=== PATIENT | female | born 1950 | race American Indian/Alaskan Native ===

== ENCOUNTER 2018-09-15 08:07 | Emergency (ER) | payer MEDICARE ==
[2018-09-15 08:13] VITALS: BP 137/76
--- NOTE | 2018-09-15 09:01 | Emergency Department Report ---
ED Extremity Problem HPI - General Chief complaint: Extremity Injury, Lower Stated complaint: DIABETIC/L FOOT SWOLLEN Time Seen by Provider: 09/15/18 08:53 Source: patient Mode of arrival: Ambulatory Limitations: No Limitations - History of Present Illness Initial comments: Patient is a 68-year-old Female past medical history of diabetes who is complain ing of left foot and ankle swelling. Patient states for the past 2 weeks she is experiencing some swelling mostly at night. Patient states she works 3 days out of the week and on the days that she is working she's noticed that her left foot and ankle get some mild swelling was noted today. This resolves at night with rest. The patient states on her off today she is not experiencing swelling. Patient was concerned because she is a diabetic and wanted to make sure that there was no evidence of infection. Patient denies any pain or injury fevers or chills it's time. Severity scale (0 -10): 0 - Related Data Previous Rx's Medication Instructions Recorded Last Taken Type Metformin HCl [Glucophage] 500 mg PO BID #60 tablet 11/16/17 Unknown Rx Allergies Allergy/AdvReac Type Severity Reaction Status Date / Time No Known Allergies Allergy Verified 09/15/18 08:09 ED Review of Systems ROS: Stated complaint: DIABETIC/L FOOT SWOLLEN Other details as noted in HPI Comment: All other systems reviewed and negative ED Past Medical Hx - Past Medical History Hx Diabetes: Yes - Surgical History Past Surgical History?: No - Social History Smoking Status: Never Smoker Substance Use Type: None - Medications Home Medications: Home Medications Medication Instructions Recorded Confirmed Last Taken Type Metformin HCl [Glucophage] 500 mg PO BID #60 tablet 11/16/17 Unknown Rx ED Physical Exam - General Limitations: No Limitations General appearance: alert, in no apparent distress - Head Head exam: Present: atraumatic, normocephalic - Eye Eye exam: Present: normal appearance - ENT ENT exam: Present: mucous membranes moist - Neck Neck exam: Present: normal inspection - Respiratory Respiratory exam: Present: normal lung sounds bilaterally. Absent: respiratory distress, wheezes, rales, rhonchi - Cardiovascular Cardiovascular Exam: Present: regular rate, normal rhythm. Absent: systolic murmur, diastolic murmur, rubs, gallop - GI/Abdominal GI/Abdominal exam: Present: soft, normal bowel sounds - Extremities Exam Extremities exam: Present: normal inspection, other (patient has trace edema to the left ankle. There is no erythema or warmth.) - Back Exam Back exam: Present: normal inspection - Neurological Exam Neurological exam: Present: alert, oriented X3 - Psychiatric Psychiatric exam: Present: normal affect, normal mood - Skin Skin exam: Present: warm, dry, intact, normal color. Absent: rash ED Course Vital Signs 09/15/18 08:11 Temperature 98.1 F Pulse Rate 104 H Respiratory 18 Rate Blood Pressure 137/76 O2 Sat by Pulse 97 Oximetry ED Medical Decision Making - Medical Decision Making Patient given information regarding dependent edema. Patient be discharged home. Critical care attestation.: If time is entered above; I have spent that time in minutes in the direct care of this critically ill patient, excluding procedure time. ED Disposition Clinical Impression: Dependent edema Disposition: TO HOME OR SELFCARE Is pt being admited?: No Does the pt Need Aspirin: No Condition: Stable Instructions: Leg Edema (ED) Referrals: NATHALIE SHIN MD [Primary Care Provider] - 3-5 Days Time of Disposition: 09:01
== END 2018-09-15 09:15 | disposition home or self-care (01) ==
LOC: ED 08:07
DX: R60.9 Edema, unspecified (principal); E11.9 Type 2 diabetes mellitus without complications
CPT/HCPCS: 99282

== ENCOUNTER 2018-11-27 14:49 | Emergency (ER) | payer MEDICARE ==
--- NOTE | 2018-11-27 15:18 | Emergency Department Report ---
Blank Doc - Documentation Documentation: Pt states that this morning she began having vaginal spotting now having heavy vaginal bleeding, passing clots no abd pain no N/V no fever no urinary sx stopped having cycles in her 50s still has her uterus has not had a pelvic exam in 5 years no hx of fibroids PMHx DM non smoker rare ETOH no drug use
[2018-11-27 16:21] LABS: Basophils % (Auto) 0.4 % (0.0-1.8); Eosinophils % (Auto) 0.3 % (0.0-4.3); Hematocrit 38.2 % (30.3-42.9); Hemoglobin 12.5 gm/dl (10.1-14.3); Lymphocytes # (Auto) 1.2 K/mm3 (1.2-5.4); Lymphocytes % (Auto) 13.2 % (13.4-35.0); Mean Corpuscular HGB Conc 33 % (30-34); Mean Corpuscular Volume 75 fl (79-97); Monocytes # (Auto) 0.5 K/mm3 (0.0-0.8); Monocytes % (Auto) 5.6 % (0.0-7.3); Platelet Count 274 K/mm3 (140-440); Red Blood Count 5.13 M/mm3 (3.65-5.03); Red Cell Distribution Width 14.9 % (13.2-15.2)
[2018-11-27 16:30] LABS: INR 1.13 (0.87-1.13)
[2018-11-27 16:31] LABS: Partial Thromboplastin Time 28.7 Sec. (24.2-36.6)
[2018-11-27 16:34] LABS: BUN/Creatinine Ratio 22; Blood Urea Nitrogen 13 mg/dL (7-17); Hemolysis Index 2
--- NOTE | 2018-11-27 16:56 | Emergency Department Report ---
ED Female HPI - General Chief complaint: Vaginal Bleeding Stated complaint: VAGINAL BLEEDING Time Seen by Provider: 11/27/18 15:15 Source: patient Mode of arrival: Ambulatory Limitations: No Limitations - History of Present Illness Initial comments: This is a 68-year-old Afro[place] female who presents with vaginal bleeding. Patient status spotting started this morning. She also reports feeling some pressure with increased vaginal bleeding and clotting later. Patient states she has similar symptoms twice over the past 2 years and was seen by her primary care doctor. Patient reports bleeding and lasts for 1-2 days previously and her primary care doctor never referred her to a bus cleaner. Patient states she had not had a pelvic exam in the past 5-6 years. MD Complaint: vaginal bleeding -: This morning Radiation: non-radiating Severity: mild Severity scale (0 -10): 0 Consistency: intermittent Improves with: none Worsens with: none Are you Now?: No Associated Symptoms: vaginal bleeding. denies: vaginal discharge, abdominal pain, nausea/vomiting, fever/chills, headaches, loss of appetite, dysuria, hematuria, rash, seizure, shortness of breath, syncope, weakness - Related Data Sexually active: No Previous Rx's Medication Instructions Recorded Last Taken Type Metformin HCl [Glucophage] 500 mg PO BID #60 tablet 11/16/17 Unknown Rx Allergies Allergy/AdvReac Type Severity Reaction Status Date / Time No Known Allergies Allergy Verified 11/27/18 14:49 ED Review of Systems ROS: Stated complaint: VAGINAL BLEEDING Other details as noted in HPI Constitutional: denies: chills, fever Respiratory: denies: cough, shortness of breath, wheezing Cardiovascular: denies: chest pain, palpitations Gastrointestinal: denies: abdominal pain, nausea, diarrhea Genitourinary: other (postmenopausal bleeding). denies: urgency, dysuria, discharge, abnormal menses Skin: denies: rash, lesions Neurological: denies: headache, weakness, paresthesias Psychiatric: denies: anxiety, depression ED Past Medical Hx - Past Medical History Hx Diabetes: Yes - Surgical History Additional Surgical History: eye surgery - Social History Smoking Status: Never Smoker Substance Use Type: None - Medications Home Medications: Home Medications Medication Instructions Recorded Confirmed Last Taken Type Metformin HCl [Glucophage] 500 mg PO BID #60 tablet 11/16/17 Unknown Rx ED Physical Exam - General Limitations: No Limitations General appearance: alert, in no apparent distress - Respiratory Respiratory exam: Present: normal lung sounds bilaterally. Absent: respiratory distress - Cardiovascular Cardiovascular Exam: Present: regular rate, normal rhythm. Absent: systolic murmur, diastolic murmur, rubs, gallop - GI/Abdominal GI/Abdominal exam: Present: soft, normal bowel sounds. Absent: distended, tenderness, guarding, rebound, rigid - Back Exam Back exam: Absent: CVA tenderness (R), CVA tenderness (L) - Neurological Exam Neurological exam: Present: alert, oriented X3 - Psychiatric Psychiatric exam: Present: normal affect, normal mood - Skin Skin exam: Present: warm, dry, intact, normal color. Absent: rash ED Course Vital Signs 11/27/18 11/27/18 11/27/18 15:16 18:13 19:31 Temperature 97.7 F 98.0 F Pulse Rate 137 H 123 H 101 H Respiratory 18 22 18 Rate Blood Pressure 135/81 123/78 124/78 [Left] O2 Sat by Pulse 97 98 98 Oximetry ED Medical Decision Making - Lab Data Result diagrams: 11/27/18 15:58 11/27/18 15:58 Lab Results 11/27/18 11/27/18 11/27/18 Range/Units 15:58 15:58 15:58 WBC 9.2 (4.5-11.0) K/mm3 RBC 5.13 H (3.65-5.03) M/mm3 Hgb 12.5 (10.1-14.3) gm/dl Hct 38.2 (30.3-42.9) % MCV 75 L (79-97) fl MCH 24 L (28-32) pg MCHC 33 (30-34) % RDW 14.9 (13.2-15.2) % Plt Count 274 (140-440) K/mm3 Lymph % (Auto) 13.2 L (13.4-35.0) % [place] % (Auto) 5.6 (0.0-7.3) % Eos % (Auto) 0.3 (0.0-4.3) % Baso % (Auto) 0.4 (0.0-1.8) % Lymph # 1.2 (1.2-5.4) K/mm3 [place] # 0.5 (0.0-0.8) K/mm3 Eos # 0.0 (0.0-0.4) K/mm3 Baso # 0.0 (0.0-0.1) K/mm3 Seg Neutrophils % 80.5 H (40.0-70.0) % Seg Neutrophils # 7.4 (1.8-7.7) K/mm3 PT 15.2 H (12.2-14.9) Sec. INR 1.13 (0.87-1.13) APTT 28.7 (24.2-36.6) Sec. Sodium 135 L (137-145) mmol/L Potassium 3.9 (3.6-5.0) mmol/L Chloride 92.8 L (98-107) mmol/L Carbon Dioxide 28 (22-30) mmol/L Anion Gap 18 mmol/L BUN 13 (7-17) mg/dL Creatinine 0.6 L (0.7-1.2) mg/dL Estimated GFR > 60 ml/min BUN/Creatinine Ratio 22 % Glucose 221 H (65-100) mg/dL Calcium 9.0 (8.4-10.2) mg/dL - Radiology Data Radiology results: report reviewed PROCEDURE: US TRANSVAGINAL TECHNIQUE: Transabdominal and transvaginal grayscale and color-flow imaging of the pelvis was performed. HISTORY: postmenopausal vaginal bleeding COMPARISONS: None FINDINGS: Transabdominal: The uterus measures 12.1 cm x 7.2 cm x 10.3 cm in size. There is increased thickness of the endometrium (2.6 cm) with a heterogeneous appearance of the endometrium and the appearance of fluid in the endometrial cavity. There is an approximately 5.6 cm fibroid. The ovaries are not well visualized on the transabdominal study. No free fluid is demonstrated in the pelvis. Transvaginal: There is increased thickness of the endometrium (4.3 cm) which is heterogeneous and irregular in appearance. There is the appearance of fluid within the endometrial cavity. There is an approximately 6 cm anterior right uterine fibroid. The left ovary measures 2 cm x 2.2 cm x 0.9 cm and contains an approximately 0.9 cm cyst. The right ovary measures 2.2 cm x 2.4 cm x 2 cm and contains an approximately 2 cm cyst. Flow is demonstrated in both ovaries utilizing color flow imaging. A trace amount of free fluid is demonstrated in the pelvis. IMPRESSION: 1. Increased thickness of the endometrium which is heterogeneous in appearance with the appearance of fluid in the endometrial cavity. Endometrial malignancy needs to be considered. Referral to [facility] is recommended for further evaluation. 2. Uterine fibroid. 3. Small cyst both ovaries. 4. Small amount of free fluid in the pelvis. - Medical Decision Making Patient was examined by me. Vitals are normal and patient is in no acute distress. Postmenopausal vaginal bleeding. I obtained labs and pelvic and transvaginal ultrasound. There is some anemia with normal H&H, although the labs are unremarkable. Ultrasound dictated by radiologist report reviewed by myself. 1. Increased thickness of the endometrium which is heterogeneous in appearance with the appearance of fluid in the endometrial cavity. Endometrial malignancy needs to be considered. Referral to [facility] is recommended for further evaluation. 2. Uterine fibroid. 3. Small cyst both ovaries. 4. Small amount of free fluid in the pelvis. Referral to bus cleaner for continued care. Results discussed with patient and importance of follow-up with [facility] for further evaluation. Patient also given risk if she does not followup with [facility]. She agrees with ER plan. Patient discharged home in stable condition. Follow up with PCP in 2-3 days. - Differential Diagnosis Endometrial malignancy Critical care attestation.: If time is entered above; I have spent that time in minutes in the direct care of this critically ill patient, excluding procedure time. ED Disposition Clinical Impression: Post-menopausal bleeding Disposition: - TO HOME OR SELFCARE Is pt being admited?: No Does the pt Need Aspirin: No Condition: Stable Instructions: Dysfunctional Uterine Bleeding (ED) Additional Instructions: Follow-up with the bus cleaner from the referral list below within the next week. Return to the emergency room if worsening symptoms such as vaginal bleeding, pelvic pain,or lightheadedness. Referrals: [facility] [Provider Group] - 3-5 Days [facility] [Provider Group] - 3-5 Days [facility] [Provider Group] - 3-5 Days NATHALIE SHIN MD [Primary Care Provider] - 3-5 Days Forms: Accompanied Note Time of Disposition: 17:53
--- NOTE | 2018-11-27 17:19 | Ultrasound Report ---
PROCEDURE: US TRANSVAGINAL TECHNIQUE: Transabdominal and transvaginal grayscale and color-flow imaging of the pelvis was perfor med. HISTORY: postmenopausal vaginal bleeding COMPARISONS: None FINDINGS: Transabdominal: The uterus measures 12.1 cm x 7.2 cm x 10.3 cm in size. There is increased thickness of the endometrium (2.6 cm) with a heterogeneous appearance of the endom etrium and the appearance of fluid in the endometrial cavity. There is an approximately 5.6 cm fibroid. The ovaries are not well visualized on the transabdominal s tudy. No free fluid is demonstrated in the pelvis. Transvaginal: There is increased thickness of the endometrium (4.3 cm) which is heterogeneous and irregular in appe arance. There is the appearance of fluid within the endometrial cavity. There is an approximately 6 cm anterior right uterine fibroid. The left ovary measures 2 cm x 2.2 cm x 0.9 cm and contains an approximately 0.9 cm cyst. The right ovary measures 2.2 cm x 2.4 cm x 2 cm and contains an approximately 2 cm cyst. Flow is demonstrated in both ovaries utilizing color flow imaging. A trace amount of free fluid is demonstrated in the pelvis. IMPRESSION: 1. Increased thickness of the endometrium which is heterogeneous in appearance with the appearance of fluid in the endometrial cavity. Endometrial malignancy needs to be considered. Referral to [facility] is recommended for further evaluation. 2. Uterine fibroid. 3. Small cyst both ovaries. 4. Small amount of free fluid in the pelvis. This document is electronically signed by Prema Hines MD., Nov 27 2018 05:17:26 PM ET
--- NOTE | 2018-11-27 17:19 | Ultrasound Report ---
PROCEDURE: US PELVIC COMPLETE TECHNIQUE: Transabdominal and transvaginal grayscale and color-flow imaging of the pelvis was perfor med. HISTORY: postmenopausal vaginal bleeding COMPARISONS: None FINDINGS: Transabdominal: The uterus measures 12.1 cm x 7.2 cm x 10.3 cm in size. There is increased thickness of the endometrium (2.6 cm) with a heterogeneous appearance of the endom etrium and the appearance of fluid in the endometrial cavity. There is an approximately 5.6 cm fibroid. The ovaries are not well visualized on the transabdominal s tudy. No free fluid is demonstrated in the pelvis. Transvaginal: There is increased thickness of the endometrium (4.3 cm) which is heterogeneous and irregular in appe arance. There is the appearance of fluid within the endometrial cavity. There is an approximately 6 cm anterior right uterine fibroid. The left ovary measures 2 cm x 2.2 cm x 0.9 cm and contains an approximately 0.9 cm cyst. The right ovary measures 2.2 cm x 2.4 cm x 2 cm and contains an approximately 2 cm cyst. Flow is demonstrated in both ovaries utilizing color flow imaging. A trace amount of free fluid is demonstrated in the pelvis. IMPRESSION: 1. Increased thickness of the endometrium which is heterogeneous in appearance with the appearance of fluid in the endometrial cavity. Endometrial malignancy needs to be considered. Referral to [facility] is recommended for further evaluation. 2. Uterine fibroid. 3. Small cyst both ovaries. 4. Small amount of free fluid in the pelvis. This document is electronically signed by Prema Hines MD., Nov 27 2018 05:16:45 PM ET
[2018-11-27] MEDS ORDERED: NACL 0.9% 1000 ML 1,000 ML IV ONE (18:21)
[2018-11-27 19:32] VITALS: BP 124/78
== END 2018-11-27 19:32 | disposition home or self-care (01) ==
LOC: ED 14:49
DX: N95.0 Postmenopausal bleeding (principal); E11.9 Type 2 diabetes mellitus without complications
CPT/HCPCS: 36415; 76830; 76856; 80048; 85025; 85610; 85730; 99284; J7030

== ENCOUNTER 2019-01-09 18:23 | Inpatient (IN) | payer MEDICARE ==
--- NOTE | 2019-01-09 19:19 | Event Note ---
ED Screening Note Date of service: 01/09/19 Time: 19:15 ED Screening Note: This is a 68 y.o. F. that presents to the ER with RLE swelling. Patient reports swelling started 3 days. Reports SOB PMH of DM and DVT This initial assessment/diagnostic orders/clinical plan/treatment(s) is/are subject to change based on patients health status, clinical progression and re- assessment by fellow clinical providers in the ED. Further treatment and workup at subsequent clinical providers discretion. Patient/guardian urged not to elope from the ED as their condition may be serious if not clinically assessed and managed. Initial orders include: doppler
--- NOTE | 2019-01-09 22:34 | Emergency Department Report ---
ED Extremity Problem HPI - General Chief complaint: Extremity Problem,Nontraumatic Stated complaint: R LEG SWOLLEN Time Seen by Provider: 01/09/19 19:15 Source: patient Mode of arrival: Ambulatory Limitations: No Limitations - History of Present Illness Initial comments: 68-year-old female with a past medical history significant for non insulin dependent diabetes presents to the hospital complaining of progressively worsening right leg swelling 3 days. Patient denies pain, fever, or redness, or trauma. Patient stands on her feet all the work. She denies recent travel, history of PE/DVT, shortness of breath, or chest pain. Patient states she has had a fast heart beat at least since August identified during a physician office visit. Patient is currently being seen by Dr. Melendez ELECTRIC RANGE SERVICER and has an appointment scheduled on the with a new PMD. - Related Data Home Medications Medication Instructions Recorded Confirmed Last Taken metFORMIN [Glucophage] 1,000 mg PO BID 01/10/19 01/10/19 Unknown Allergies Allergy/AdvReac Type Severity Reaction Status Date / Time No Known Allergies Allergy Verified 11/27/18 14:49 ED Review of Systems ROS: Stated complaint: R LEG SWOLLEN Other details as noted in HPI Comment: All other systems reviewed and negative ED Past Medical Hx - Past Medical History Hx Diabetes: Yes - Surgical History Additional Surgical History: eye surgery - Social History Smoking Status: Never Smoker - Medications Home Medications: Home Medications Medication Instructions Recorded Confirmed Last Taken Type metFORMIN [Glucophage] 1,000 mg PO BID 01/10/19 01/10/19 Unknown History ED Physical Exam - General Limitations: No Limitations - Other Other exam information: General: No limitations, patient is alert in no acute distress Head exam: Atraumatic, normocephalic Eyes exam: Normal appearance ENT: Moist mucous membrane Neck exam: Normal inspection, full range of motion, no meningismus nontender Respiratory exam: Clear to auscultation bilateral, no wheezes, rales, crackles Cardiovascular: Mild tachycardia regular rhythm Abdomen: Soft, nondistended, and nontender, with normal bowel sounds, no rebound, or guarding Extremity: Full range of motion normal inspection no deformity, diffusely swollen right lower extremity below the knee down to the foot. Mild pitting, b ananas, 2+ DP pulses equal bilaterally, no warmth or erythema. Back: Normal Inspection, full range of motion, no tenderness Neurologic: Alert, oriented x3, cranial nerves intact, no motor or sensory d eficit Psychiatric: normal affect, normal mood Skin: Warm, dry, intact ED Course Vital Signs 01/09/19 01/09/19 01/09/19 19:16 22:01 22:03 Temperature 98.1 F Pulse Rate 127 H 116 H 114 H Respiratory 18 21 18 Rate Blood Pressure 120/76 110/74 O2 Sat by Pulse 98 93 Oximetry 01/09/19 01/09/19 01/09/19 22:15 22:30 22:38 Temperature Pulse Rate 114 H 114 H Respiratory 19 22 18 Rate Blood Pressure 102/58 96/64 O2 Sat by Pulse 98 97 95 Oximetry 01/09/19 01/09/19 01/09/19 22:42 22:45 23:15 Temperature Pulse Rate 115 H 114 H 114 H Respiratory 22 15 22 Rate Blood Pressure 96/64 104/68 104/72 O2 Sat by Pulse 95 92 Oximetry 01/09/19 01/09/19 01/09/19 23:19 23:30 23:45 Temperature Pulse Rate 114 H 114 H 115 H Respiratory 24 12 22 Rate Blood Pressure 104/72 100/61 108/79 O2 Sat by Pulse 95 98 81 L Oximetry 01/10/19 01/10/19 01/10/19 00:00 01:00 01:15 Temperature Pulse Rate 116 H 113 H Respiratory 21 20 Rate Blood Pressure 98/67 100/61 100/69 O2 Sat by Pulse 96 100 97 Oximetry 01/10/19 01/10/19 01/10/19 01:30 01:45 02:00 Temperature Pulse Rate 115 H 115 H 117 H Respiratory 22 22 28 H Rate Blood Pressure 104/66 101/65 113/73 O2 Sat by Pulse 96 95 96 Oximetry 01/10/19 01/10/19 01/10/19 02:15 02:30 02:45 Temperature Pulse Rate 115 H 115 H 119 H Respiratory 20 23 25 H Rate Blood Pressure 109/67 102/67 102/67 O2 Sat by Pulse 96 94 95 Oximetry 01/10/19 01/10/19 01/10/19 03:00 03:15 03:30 Temperature Pulse Rate 117 H 117 H 114 H Respiratory 16 17 16 Rate Blood Pressure 107/74 111/66 99/75 O2 Sat by Pulse 98 96 100 Oximetry 01/10/19 01/10/19 01/10/19 03:41 04:09 04:35 Temperature 98.6 F Pulse Rate 114 H 78 115 H Respiratory 13 20 Rate Blood Pressure 99/75 100/70 O2 Sat by Pulse 98 96 Oximetry 01/10/19 04:55 Temperature Pulse Rate 56 L Respiratory 18 Rate Blood Pressure 99/75 O2 Sat by Pulse Oximetry ED Medical Decision Making - Lab Data Result diagrams: 01/10/19 02:43 01/09/19 22:19 Lab Results 01/09/19 01/09/19 01/09/19 Range/Units 19:29 22:19 22:19 WBC 11.8 H (4.5-11.0) K/mm3 RBC 4.75 (3.65-5.03) M/mm3 Hgb 11.3 (10.1-14.3) gm/dl Hct 33.6 (30.3-42.9) % MCV 71 L (79-97) fl MCH 24 L (28-32) pg MCHC 34 (30-34) % RDW 16.4 H (13.2-15.2) % Plt Count 372 (140-440) K/mm3 Lymph % (Auto) 14.6 (13.4-35.0) % [place] % (Auto) 5.9 (0.0-7.3) % Eos % (Auto) 0.5 (0.0-4.3) % Baso % (Auto) 0.7 (0.0-1.8) % Lymph # 1.7 (1.2-5.4) K/mm3 [place] # 0.7 (0.0-0.8) K/mm3 Eos # 0.1 (0.0-0.4) K/mm3 Baso # 0.1 (0.0-0.1) K/mm3 Seg Neutrophils % 78.3 H (40.0-70.0) % Seg Neutrophils # 9.2 H (1.8-7.7) K/mm3 PT 15.3 H (12.2-14.9) Sec. INR 1.24 H (0.87-1.13) APTT 30.1 (24.2-36.6) Sec. D-Dimer 6290.21 H (0-234) ng/mlDDU Sodium (137-145) mmol/L Potassium (3.6-5.0) mmol/L Chloride (98-107) mmol/L Carbon Dioxide (22-30) mmol/L Anion Gap mmol/L BUN (7-17) mg/dL Creatinine (0.7-1.2) mg/dL Estimated GFR ml/min BUN/Creatinine Ratio % Glucose (65-100) mg/dL POC Glucose 185 H (70-105) Calcium (8.4-10.2) mg/dL TSH (0.270-4.200) mlU/mL Free T4 (0.76-1.46) ng/dL 01/09/19 01/09/19 Range/Units 22:19 22:19 WBC (4.5-11.0) K/mm3 RBC (3.65-5.03) M/mm3 Hgb (10.1-14.3) gm/dl Hct (30.3-42.9) % MCV (79-97) fl MCH (28-32) pg MCHC (30-34) % RDW (13.2-15.2) % Plt Count (140-440) K/mm3 Lymph % (Auto) (13.4-35.0) % [place] % (Auto) (0.0-7.3) % Eos % (Auto) (0.0-4.3) % Baso % (Auto) (0.0-1.8) % Lymph # (1.2-5.4) K/mm3 [place] # (0.0-0.8) K/mm3 Eos # (0.0-0.4) K/mm3 Baso # (0.0-0.1) K/mm3 Seg Neutrophils % (40.0-70.0) % Seg Neutrophils # (1.8-7.7) K/mm3 PT (12.2-14.9) Sec. INR (0.87-1.13) APTT (24.2-36.6) Sec. D-Dimer (0-234) ng/mlDDU Sodium 133 L (137-145) mmol/L Potassium 4.5 (3.6-5.0) mmol/L Chloride 95.7 L (98-107) mmol/L Carbon Dioxide 23 (22-30) mmol/L Anion Gap 19 mmol/L BUN 22 H (7-17) mg/dL Creatinine 0.7 (0.7-1.2) mg/dL Estimated GFR > 60 ml/min BUN/Creatinine Ratio 31 % Glucose 135 H (65-100) mg/dL POC Glucose (70-105) Calcium 9.5 (8.4-10.2) mg/dL TSH 3.410 (0.270-4.200) mlU/mL Free T4 1.08 (0.76-1.46) ng/dL - EKG Data -: EKG Interpreted by Hi EKG shows normal: sinus rhythm, axis (qrs 18), QRS complexes (qrsd 60), ST-T waves (no stemi) Rate: tachycardia (117) - EKG Data When compared to previous EKG there are: no significant change - Radiology Data Radiology results: report reviewed CTA CHEST WITH IV CONTRAST INDICATION: MAIN: Pt states no chest pain or abel thing trouble. Came because right leg was swollen. D dimer 6290.21. TECHNIQUE: Axial CT images were obtained through the chest after injection of IV contrast. 3 plane MIP reconstructions were produced. All CT scans at this location are performed using CT dose reduction for [employer] by means of automated exposure control. COMPARISON: CT 11/15/2017. FINDINGS: Pulmonary Arteries: Occlusive PTE is noted within segmental right middle and right lower lobe pulmonary arteries. There is minimal PTE within left lung base as well. There is no central PTE. Thoracic Aorta: No acute abnormality. Heart: There is right-sided cardiomegaly. There is reflux of contrast from the right atrium into the hepatic veins. Coronary Arteries: No significant calcification. Lungs: There is compressive atelectasis in the right lung base. There are several noncalcified subcentimeter pulmonary nodules. The largest in the posterior right lung measures 6 mm on axial image 42. Pleura: There is a small right pleural effusion. No left pleural effusion. No pneumothorax. Lymph Nodes: No significant adenopathy. Additional Findings: There is diffuse anasarca. Upper Abdomen: No acute findings. Skeletal Structures: No significant osseous abnormality. IMPRESSION: 1. Mild peripheral bilateral PTE, as above. 2. Right-sided cardiomegaly with evidence of right heart failure. 3. There are several noncalcified bilateral pulmonary nodules, the largest measures 6 mm. See below for follow-up recommendations. These are new since the prior. 4. Diffuse anasarca. Small right pleural effusion. COMMUNICATION: Time of Communication: 11:50 PM, central Licensed Practitioner Receiving Report: Dr. Orellana INCIDENTAL PULMONARY NODULE RECOMMENDATIONS Solid Nodule size 6-8 mm -- Multiple - Low Risk Patient: CT at 3-6 months, then consider CT at 18-24 months - High Risk Patient: CT at 3-6 months, then CT at 18-24 month Note These recommendations do not apply to lung cancer screening, patients with immunosuppression, or patients with known primary cancer. Note Newly detected indeterminate nodule in persons 35 years of age or older. Persons under the age of 35 should not receive follow-up unless there is a known primary cancer. Low Risk Patient -- minimal or absent history of smoking and of other known risk factors. High Risk Patient -- history of smoking or of other known risk factors. Nodule dimensions are average of long and short axes, rounded to the nearest millimeter. Based on 2017 Fleischner Society Guidelines found in Radiology 2017 284:228-243. https://doi.org/10.1148/radiol.[email or web address] CHEST PA AND LATERAL VIEWS INDICATION: tachycardia, right leg swelling. COMPARISON: CT earlier the same day FINDINGS: Support devices: None. Heart: Within normal limits. Lungs/Pleura: There is a right pleural effusion. There are couple faint upper lobe pulmonary nodules, better seen on the CT from the same day. No pneumothorax. IMPRESSION: 1. Small right pleural effusion. 2. Subcentimeter pulmonary nodules in both upper lobes. These are better characterized on the dedicated CT chest earlier the same day. - Medical Decision Making ct angio chest + her from pulmonary embolism, chest wall anasarca, and right sided effusion I highly suspect the patient has a right leg DVT, unfortunately ultrasound Doppler is not available at this time Patient treated with Lovenox in ED will be admitted for further workup - Differential Diagnosis DVT, PE, infection Critical Care Time: No Critical care attestation.: If time is entered above; I have spent that time in minutes in the direct care of this critically ill patient, excluding procedure time. ED Disposition Clinical Impression: Pulmonary embolism, Right leg swelling, New onset type 2 diabetes mellitus, Hyponatremia, Pleural effusion, right, Sinus tachycardia Disposition: OP ADMIT IP TO THIS HOSP Is pt being admited?: Yes Condition: Stable Time of Disposition: 01:02 (DR Faustin/hosp)
[2019-01-09 22:44] LABS: Basophils # (Auto) 0.1 K/mm3 (0.0-0.1); Eosinophils # (Auto) 0.1 K/mm3 (0.0-0.4); Eosinophils % (Auto) 0.5 % (0.0-4.3); Monocytes # (Auto) 0.7 K/mm3 (0.0-0.8); Monocytes % (Auto) 5.9 % (0.0-7.3)
[2019-01-09 22:45] LABS: Hematocrit 33.6 % (30.3-42.9); Hemoglobin 11.3 gm/dl (10.1-14.3); Mean Corpuscular HGB Conc 34 % (30-34); Mean Corpuscular Volume 71 fl (79-97); Platelet Count 372 K/mm3 (140-440); Red Blood Count 4.75 M/mm3 (3.65-5.03); Red Cell Distribution Width 16.4 % (13.2-15.2)
[2019-01-09 22:46] LABS: Basophils % (Auto) 0.7 % (0.0-1.8); INR 1.24 (0.87-1.13); Lymphocytes # (Auto) 1.7 K/mm3 (1.2-5.4); Lymphocytes % (Auto) 14.6 % (13.4-35.0)
[2019-01-09 22:47] LABS: Partial Thromboplastin Time 30.1 Sec. (24.2-36.6)
[2019-01-09 23:07] LABS: BUN/Creatinine Ratio 31; Blood Urea Nitrogen 22 mg/dL (7-17); Calcium 9.5 mg/dL (8.4-10.2); Hemolysis Index 8
[2019-01-09 23:17] LABS: Free T4 (Free Thyroxine) 1.08 ng/dL (0.76-1.46)
[2019-01-09] MEDS ORDERED: NACL 0.9% 1000 ML 1,000 ML IV SCH (23:45)
[2019-01-10] MEDS ORDERED: LOVENOX SUB-Q ONE (00:51)
--- NOTE | 2019-01-10 00:56 | Cat Scan Report ---
CTA CHEST WITH IV CONTRAST INDICATION: MAIN: Pt states no chest pain or breathing trouble. Came because right leg was swollen. D dimer 629 0.21. TECHNIQUE: Axial CT images were obtained through the chest after injection of IV contrast. 3 plane MIP reconstru ctions were produced. All CT scans at this location are performed using CT dose reduction for [employer] b y means of automated exposure control. COMPARISON: CT 11/15/2017. FINDINGS: Pulmonary Arteries: Occlusive PTE is noted within segmental right middle and right lower lobe pulmona ry arteries. There is minimal PTE within left lung base as well. There is no central PTE. Thoracic Aorta: No acute abnormality. Heart: There is right-sided cardiomegaly. There is reflux of contrast from the right atrium into the hepatic veins. Coronary Arteries: No significant calcification. Lungs: There is compressive atelectasis in the right lung base. There are several noncalcified subcen timeter pulmonary nodules. The largest in the posterior right lung measures 6 mm on axial image 42. Pleura: There is a small right pleural effusion. No left pleural effusion. No pneumothorax. Lymph Nodes: No significant adenopathy. Additional Findings: There is diffuse anasarca. Upper Abdomen: No acute findings. Skeletal Structures: No significant osseous abnormality. IMPRESSION: 1. Mild peripheral bilateral PTE, as above. 2. Right-sided cardiomegaly with evidence of right heart failure. 3. There are several noncalcified bilateral pulmonary nodules, the largest measures 6 mm. See below f or follow-up recommendations. These are new since the prior. 4. Diffuse anasarca. Small right pleural effusion. COMMUNICATION: Time of Communication: 11:50 PM, [place] Licensed Practitioner Receiving Report: Dr. Orellana INCIDENTAL PULMONARY NODULE RECOMMENDATIONS Solid Nodule size 6-8 mm -- Multiple - Low Risk Patient: CT at 3-6 months, then consider CT at 18-24 months - High Risk Patient: CT at 3-6 months, then CT at 18-24 month Note These recommendations do not apply to lung cancer screening, patients with immunosuppression, o r patients with known primary cancer. Note Newly detected indeterminate nodule in persons 35 years of age or older. Persons under the age of 35 should not receive follow-up unless there is a known primary cancer. Low Risk Patient -- minimal or absent history of smoking and of other known risk factors. High Risk Patient -- history of smoking or of other known risk factors. Nodule dimensions are average of long and short axes, rounded to the nearest millimeter. Based on 2017 Fleischner Society Guidelines found in Radiology 2017 284:228-243. https://doi.org/[email or web address] 148/radiol.[email or web address] Signer Name: Maximo Harmon MD Signed: 01/10/2019 12:51 AM Workstation Name: [id number]
--- NOTE | 2019-01-10 01:11 | XRay Report ---
CHEST PA AND LATERAL VIEWS INDICATION: tachycardia, right leg swelling. COMPARISON: CT earlier the same day FINDINGS: Support devices: None. Heart: Within normal limits. Lungs/Pleura: There is a right pleural effusion. There are couple faint upper lobe pulmonary nodules, better seen on the CT from the same day. No pneumothorax. IMPRESSION: 1. Small right pleural effusion. 2. Subcentimeter pulmonary nodules in both upper lobes. These are better characterized on the [facility] ed CT chest earlier the same day. Signer Name: Maximo Harmon MD Signed: 01/10/2019 1:07 AM Workstation Name: [id number]
[2019-01-10] MEDS ORDERED: SODIUM CHLORIDE FLUSH SYRINGE 10 ML IV PRN (01:16)
[2019-01-10] MEDS ORDERED: PROVENTIL IH PRN (01:16)
[2019-01-10] MEDS ORDERED: TYLENOL PO PRN (01:16)
[2019-01-10] MEDS ORDERED: PERCOCET 5/325 PO PRN (01:16)
[2019-01-10] MEDS ORDERED: ZOFRAN IV PRN (01:16)
[2019-01-10] MEDS ORDERED: D50W (25GM) Syringe IV PRN ×2 (01:16→01:21)
--- NOTE | 2019-01-10 01:24 | History and Physical Report ---
<RODY ANGELES - Last Filed: 01/10/19 02:50> History of Present Illness Date of examination: 01/10/19 Date of admission: 01/10/2019 Chief complaint: Right leg swelling History of present illness: 68 -[place] female newly diagnosed with DM 2 and November of this year presents to [facility] ED with complaints of right leg swelling. She states that has has assisted in the history taking. He states that she has been experiencing aggressively worsening swelling of the right leg for the past 3 days. She states that she thought the swelling was due to standing on her feet for long hours. 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 She went out and bought compression stockings hoping that it would help with swelling. After no improvement she decided to come in for further evaluation. Patient admits to recent unwanted/undesired weight loss. Review of medical record shows that patient was seen in ED in November with complaints of postmenopausal vaginal bleeding. She is advised to follow up with Dr. Melendez on 01/22/19 for further evaluation. Admits: Chronic nonproductive cough, dyspnea with exertion Denies: PND, orthopnea, chest pain, fever, headache, nausea, vomiting, smoking history, or exposure to secondhand smoke Past History Past Medical History: diabetes (DM 2), other (mild pulmonary hypertension, postmenopausal vaginal bleeding 11/2018) Past Surgical History: Other (eye surgery) Social history: lives with family (lives with daughters), other (Never smoker) Family history: no significant family history Medications and Allergies Allergies Allergy/AdvReac Type Severity Reaction Status Date / Time No Known Allergies Allergy Verified 11/27/18 14:49 Home Medications Medication Instructions Recorded Confirmed Last Taken Type metFORMIN [Glucophage] 1,000 mg PO BID 01/10/19 01/10/19 Unknown History Calcium Carbonate [Calcium 600MG 600 mg PO DAILY 01/11/19 01/11/19 Unknown Hist ory TAB] Apixaban [Eliquis] 2 tab PO BID #26 tablet 01/12/19 Unknown Rx Apixaban [Eliquis] 5 mg PO BID #52 tablet 01/12/19 Unknown Rx Benzonatate [Tessalon Perles] 100 mg PO Q8HR #20 capsule 01/12/19 Unknown Rx Active Meds: Active Medications Sodium Chloride (Nacl 0.9% 1000 Ml) 1,000 mls @ 500 mls/hr IV DIRECT DREW Review of Systems All systems: negative (reviewed and no additional multiple complaints except as noted below) Constitutional: weight loss, poor appetite Cardiovascular: dyspnea on exertion, leg edema (right leg) Respiratory: cough (Dre nonproductive for the past 2-3 months), dyspnea on exertion Exam - Physical Exam Narrative exam: Physical exam General appearance: Present: No acute distress, alert and oriented 3, well- developed, pleasant, history -[place] female - EENT Eyes: Present: PERRL, EOM intact ENT: hearing intact, no dentition - Neck Neck: Present: supple, normal ROM - Respiratory Respiratory effort: Non-labored Respiratory: bilateral: diminished (bases) - Cardiovascular Heart rate:117 (bpm) Rhythm: Sinus tachycardia, nonspecific T-wave abnormalities Heart Sounds: Present: S1 & S2. Absent: rub, click - Extremities Extremities: no ischemia, pulses intact, abnormal (right lower extremity edema) - Peripheral Assessment Peripheral Pulses: within normal limits - Abdominal General gastrointestinal: soft, non-tender, normal bowel sounds - Integumentary Integumentary: Present: warm, dry - Musculoskeletal Musculoskeletal: Able to move all extremities, right lower extremity -Neurological Neurological: CNII-XII intact - Psychiatric Psychiatric: cooperative - Constitutional Vitals: Temp Pulse Resp BP Pulse Ox 98.1 F 114 H 22 104/72 92 01/09/19 19:16 01/09/19 23:15 01/09/19 23:15 01/09/19 23:15 01/09/19 22:45 Results - Labs CBC & Chem 7: 01/09/19 22:19 01/09/19 22:19 Labs: Laboratory Last Values WBC 11.8 K/mm3 (4.5-11.0) H 01/09/19 22:19 RBC 4.75 M/mm3 (3.65-5.03) 01/09/19 22:19 Hgb 11.3 gm/dl (10.1-14.3) 01/09/19 22:19 Hct 33.6 % (30.3-42.9) 01/09/19 22:19 MCV 71 fl (79-97) L 01/09/19 22:19 MCH 24 pg (28-32) L 01/09/19 22:19 MCHC 34 % (30-34) 01/09/19 22:19 RDW 16.4 % (13.2-15.2) H 01/09/19 22:19 Plt Count 372 K/mm3 (140-440) 01/09/19 22:19 Lymph % (Auto) 14.6 % (13.4-35.0) 01/09/19 22:19 [place] % (Auto) 5.9 % (0.0-7.3) 01/09/19 22:19 Eos % (Auto) 0.5 % (0.0-4.3) 01/09/19 22:19 Baso % (Auto) 0.7 % (0.0-1.8) 01/09/19 22:19 Lymph # 1.7 K/mm3 (1.2-5.4) 01/09/19 22:19 [place] # 0.7 K/mm3 (0.0-0.8) 01/09/19 22:19 Eos # 0.1 K/mm3 (0.0-0.4) 01/09/19 22:19 Baso # 0.1 K/mm3 (0.0-0.1) 01/09/19 22:19 Seg Neutrophils % 78.3 % (40.0-70.0) H 01/09/19 22:19 Seg Neutrophils # 9.2 K/mm3 (1.8-7.7) H 01/09/19 22:19 PT 15.3 Sec. (12.2-14.9) H 01/09/19 22:19 INR 1.24 (0.87-1.13) H 01/09/19 22:19 APTT 30.1 Sec. (24.2-36.6) 01/09/19 22:19 6290.21 ng/mlDDU (0-234) H 01/09/19 22:19 Sodium 133 mmol/L (137-145) L 01/09/19 22:19 Potassium 4.5 mmol/L (3.6-5.0) 01/09/19 22:19 Chloride 95.7 mmol/L (98-107) L 01/09/19 22:19 Carbon Dioxide 23 mmol/L (22-30) 01/09/19 22:19 19 mmol/L 01/09/19 22:19 BUN 22 mg/dL (7-17) H 01/09/19 22:19 0.7 mg/dL (0.7-1.2) 01/09/19 22:19 Estimated GFR > 60 ml/min 01/09/19 22:19 31 % 01/09/19 22:19 Glucose 135 mg/dL (65-100) H 01/09/19 22:19 POC Glucose 185 (70-105) H 01/09/19 19:29 Calcium 9.5 mg/dL (8.4-10.2) 01/09/19 22:19 TSH 3.410 mlU/mL (0.270-4.200) 01/09/19 22:19 Free T4 1.08 ng/dL (0.76-1.46) 01/09/19 22:19 - Imaging and Cardiology Chest x-ray: report reviewed (Lungs/Pleura: There is a right pleural effusion. There are couple faint upper lobe pulmonary nodules, better seen on the CT from the same day. No pneumothorax.IMPRESSION: 1. Small right pleural effusion.2. Subcentimeter pulmonary nodules in both upper lobes. These are better characterized on thededicated CT chest earlier the same day. ), image reviewed Imaging and Cardiology: CT angiogram chest: FINDINGS: Pulmonary Arteries: Occlusive PTE is noted within segmental right middle and right lower lobe pulmonary arteries. There is minimal PTE within left lung base as well. There is no central PTE. Thoracic Aorta: No acute abnormality. Heart: There is right-sided cardiomegaly. There is reflux of contrast from the right atrium into the hepatic veins. Coronary Arteries: No significant calcification. Lungs: There is compressive atelectasis in the right lung base. There are several noncalcified subcentimeter pulmonary nodules. The largest in the posterior right lung measures 6 mm on axial image 42. Pleura: There is a small right pleural effusion. No left pleural effusion. No pneumothorax. Lymph Nodes: No significant adenopathy. Additional Findings: There is diffuse anasarca. Upper Abdomen: No acute findings. Skeletal Structures: No significant osseous abnormality. IMPRESSION: 1. Mild peripheral bilateral PTE, as above. 2. Right-sided cardiomegaly with evidence of right heart failure. 3. There are several noncalcified bilateral pulmonary nodules, the largest measures 6 mm. See below for follow-up recommendations. These are new since the prior. 4. Diffuse anasarca. Small right pleural effusion. Bilateral lower extremity Doppler- pending Assessment and Plan Assessment and plan: 68 -[place] female newly diagnosed with DM 2 and November of this year presents to [facility] ED with complaints of right leg swelling for the past 3 days. D-dimer elevated at 6.290.21, ultrasound available at this time, CTA positive for bilateral PE and bilateral pulmonary nodules. We'll start on heparin drip. Will admit to telemetry. Mild peripheral bilateral PTE - right middle lobe, right lower lobe, left lung base Bilateral pulmonary nodules- largest measures 6 mm Leukocytosis Elevated d-dimer- 6290.21 Mild hyponatremia- Na 133 ?? Dehydration Hypotension Right-sided heart failure with cardiomegaly- EF 55-60% seen on echo 11/15/17 Mild pulmonary hypertension Mild tricuspid valve regurgitation Trace mitral valve the regurgitation DM 2- Hgb 7.7 (11/2018) Plan: Continue supportive care Continuous telemetry monitoring Bilateral lower extremity Doppler pending Start heparin drip per protocol Small amount of free fluid in pelvis seen on transvaginal ultrasound done 11/2018; diffuse anasarca seen on CT angiogram done today; she has scheduled outpatient appointment for 01/22. Dr. Melendez for follow-up Consult [employer] (Dr. Melendez)- to evaluate for malignancy Monitor CBC Monitor WBC, no s/s infection will hold off on abx for now Monitor electrolytes Slowly correct sodium and gentle hydration with NS @ 50ml/hr Monitor BP POC BG monitoring SSI coverage, and scheduled Lantus Start Tessalon Perles for cough DVT PPX on heparing gtt Advance Directives: No VTE prophylaxis?: Chemical Plan of care discussed with patient/family: Yes <TED RECIO - Last Filed: 01/12/19 22:40> Medications and Allergies Active Meds: Active Medications Acetaminophen (Tylenol) 650 mg PO Q4H PRN PRN Reason: Pain MILD(1-3)/Fever >100.5/KEMP Albuterol (Proventil) 2.5 mg IH Q3HRT PRN PRN Reason: Shortness Of Breath Benzonatate (Tessalon Perles) 100 mg PO Q8HR DREW Dextrose (D50w (25gm) Syringe) 50 ml IV PRN PRN PRN Reason: Hypoglycemia Sodium Chloride (Nacl 0.9% 1000 Ml) 1,000 mls @ 500 mls/hr IV DIRECT DRWE Heparin Sodium/Sodium Chloride (Heparin/ 0.45% Nacl-25,000 Unit/500 Ml) 25,000 unit in 500 mls @ 15 mls/hr IV TITR DREW; Protocol Sodium Chloride (Nacl 0.9% 1000 Ml) 1,000 mls @ 50 mls/hr IV DIRECT DREW Insulin Glargine (Lantus) 5 units SUB-Q QHS DREW Insulin Human Lispro (Humalog) 0 unit SUB-Q ACHS DREW; Protocol Ondansetron HCl (Zofran) 4 mg IV Q8H PRN PRN Reason: Nausea And Vomiting Oxycodone/Acetaminophen (Percocet 5/325) 1 tab PO Q6H PRN PRN Reason: Pain, Moderate (4-6) Sodium Chloride (Sodium Chloride Flush Syringe 10 Ml) 10 ml IV BID DREW Sodium Chloride (Sodium Chloride Flush Syringe 10 Ml) 10 ml IV PRN PRN PRN Reason: LINE FLUSH Exam - Constitutional Vitals: Temp Pulse Resp BP Pulse Ox 98.1 F 119 H 25 H 102/67 95 01/09/19 19:16 01/10/19 02:45 01/10/19 02:45 01/10/19 02:45 01/10/19 02:45 Results - Labs CBC & Chem 7: 01/12/19 07:24 01/11/19 04:11 Labs: Laboratory Last Values WBC 11.8 K/mm3 (4.5-11.0) H 01/09/19 22:19 RBC 4.75 M/mm3 (3.65-5.03) 01/09/19 22:19 Hgb 11.3 gm/dl (10.1-14.3) 01/09/19 22:19 Hct 33.6 % (30.3-42.9) 01/09/19 22:19 MCV 71 fl (79-97) L 01/09/19 22:19 MCH 24 pg (28-32) L 01/09/19 22:19 MCHC 34 % (30-34) 01/09/19 22:19 RDW 16.4 % (13.2-15.2) H 01/09/19 22:19 Plt Count 372 K/mm3 (140-440) 01/09/19 22:19 Lymph % (Auto) 14.6 % (13.4-35.0) 01/09/19 22:19 Imperial % (Auto) 5.9 % (0.0-7.3) 01/09/19 22:19 Eos % (Auto) 0.5 % (0.0-4.3) 01/09/19 22:19 Baso % (Auto) 0.7 % (0.0-1.8) 01/09/19 22:19 Lymph # 1.7 K/mm3 (1.2-5.4) 01/09/19 22:19 Imperial # 0.7 K/mm3 (0.0-0.8) 01/09/19 22:19 Eos # 0.1 K/mm3 (0.0-0.4) 01/09/19 22:19 Baso # 0.1 K/mm3 (0.0-0.1) 01/09/19 22:19 Seg Neutrophils % 78.3 % (40.0-70.0) H 01/09/19 22:19 Seg Neutrophils # 9.2 K/mm3 (1.8-7.7) H 01/09/19 22:19 PT 15.3 Sec. (12.2-14.9) H 01/09/19 22:19 INR 1.24 (0.87-1.13) H 01/09/19 22:19 APTT 30.1 Sec. (24.2-36.6) 01/09/19 22:19 6290.21 ng/mlDDU (0-234) H 01/09/19 22:19 Sodium 133 mmol/L (137-145) L 01/09/19 22:19 Potassium 4.5 mmol/L (3.6-5.0) 01/09/19 22:19 Chloride 95.7 mmol/L (98-107) L 01/09/19 22:19 Carbon Dioxide 23 mmol/L (22-30) 01/09/19 22:19 19 mmol/L 01/09/19 22:19 BUN 22 mg/dL (7-17) H 01/09/19 22:19 0.7 mg/dL (0.7-1.2) 01/09/19 22:19 Estimated GFR > 60 ml/min 01/09/19 22:19 31 % 01/09/19 22:19 Glucose 135 mg/dL (65-100) H 01/09/19 22:19 POC Glucose 185 (70-105) H 01/09/19 19:29 Calcium 9.5 mg/dL (8.4-10.2) 01/09/19 22: TSH 3.410 mlU/mL (0.270-4.200) 01/09/19 22: Free T4 1.08 ng/dL (0.76-1.46) 01/09/19 22:19 Assessment and Plan Assessment and plan: 68-year-old woman with a history of diabetes comes emergency room for evaluation of right leg swelling since Friday. Mild shortness of breath with activity. Admits to Weight loss of 35 pounds since April. She was trying to lose weight in April for about 3 weeks, however she stopped exercising and she continued to lose weight rapidly. Sister at bedside stated that she's been losing weight for a long time. She developed postmenopausal vaginal bleeding in November, pelvic and transvaginal ultrasound shows increased thickness of the endometrium, she was given a follow-up with [employer], she was scheduled for biopsy this . She had minimal free fluid in the pelvis and that time, now she has significant ascites suggestive of underlying malignancy, ovarian vs endometril. She also has right-sided cardiomyopathy suggestive of right heart failure. Agree with heparin drip for acute pulmonary emboli and [employer] consult as discusssed above. In addition consult cardiology, check echo
[2019-01-10] MEDS ORDERED: HEPARIN 10,000 UNITS/10 ML IV ONE (02:26)
[2019-01-10 03:17] LABS: Hematocrit 37.3 % (30.3-42.9)
[2019-01-10 03:27] LABS: INR 1.25 (0.87-1.13)
[2019-01-10 03:28] LABS: Partial Thromboplastin Time 33.1 Sec. (24.2-36.6)
[2019-01-10] MEDS: NACL 0.9% 1000 ML 1,000 ML IV SCH (05:10)
[2019-01-10] MEDS: HEPARIN/ 0.45% NACL-25,000 UNIT/500 ML 25,000 UNIT/500 ML BAG IV SCH (05:15)
[2019-01-10] MEDS: TESSALON PERLES PO SCH ×3 (05:15→22:05)
[2019-01-10] MEDS: HumaLOG SUB-Q SCH ×4 (08:11→22:06)
--- NOTE | 2019-01-10 10:03 | Consultation ---
History of Present Illness Consult date: 01/10/19 History of present illness: 68 year old -[place] female who is presenting with right leg swelling. She denies any pain in denies any recent travel. Patient was admitted for four- day evaluation. Past History Past Medical History: diabetes (DM 2), other (mild pulmonary hypertension, postmenopausal vaginal bleeding 11/2018) Past Surgical History: No surgical history, Other (eye surgery) Social history: single, lives with family (lives with daughters), other (Never smoker) Family history: no significant family history Medications and Allergies Allergies Allergy/AdvReac Type Severity Reaction Status Date / Time No Known Allergies Allergy Verified 11/27/18 14:49 Home Medications Medication Instructions Recorded Confirmed Last Taken Type Metformin HCl [Glucophage] 500 mg PO BID #60 tablet 11/16/17 Unknown Rx Active Meds: Active Medications Acetaminophen (Tylenol) 650 mg PO Q4H PRN PRN Reason: Pain MILD(1-3)/Fever >100.5/KEMP Albuterol (Proventil) 2.5 mg IH Q3HRT PRN PRN Reason: Shortness Of Breath Benzonatate (Tessalon Perles) 100 mg PO Q8HR DREW Last Admin: 01/10/19 05:15 Dose: 100 mg Documented by: Dextrose (D50w (25gm) Syringe) 50 ml IV PRN PRN PRN Reason: Hypoglycemia Sodium Chloride (Nacl 0.9% 1000 Ml) 1,000 mls @ 500 mls/hr IV DIRECT DREW Heparin Sodium/Sodium Chloride (Heparin/ 0.45% Nacl-25,000 Unit/500 Ml) 25,000 unit in 500 mls @ 15 mls/hr IV TITR DREW; Protocol Last Admin: 01/10/19 05:15 Dose: 750 units/hr, 15 mls/hr Documented by: Sodium Chloride (Nacl 0.9% 1000 Ml) 1,000 mls @ 50 mls/hr IV DIRECT DREW Last Admin: 01/10/19 05:10 Dose: 50 mls/hr Documented by: Insulin Glargine (Lantus) 5 units SUB-Q QHS DREW Insulin Human Lispro (Humalog) 0 unit SUB-Q ACHS DREW; Protocol Ondansetron HCl (Zofran) 4 mg IV Q8H PRN PRN Reason: Nausea And Vomiting Oxycodone/Acetaminophen (Percocet 5/325) 1 tab PO Q6H PRN PRN Reason: Pain, Moderate (4-6) Pneumococcal Polyvalent Vaccine (Pneumovax 23) 0.5 ml IM .ONCE ONE Stop: 01/10/19 12:01 Sodium Chloride (Sodium Chloride Flush Syringe 10 Ml) 10 ml IV BID DREW Sodium Chloride (Sodium Chloride Flush Syringe 10 Ml) 10 ml IV PRN PRN PRN Reason: LINE FLUSH Review of Systems All systems: negative (leg swelling) Physical Examination Vital Signs Temp Pulse Resp BP Pulse Ox 98.1 F 127 H 18 120/76 98 01/09/19 19:16 01/09/19 19:16 01/09/19 19:16 01/09/19 19:16 01/09/19 19:16 General appearance: no acute distress, well-nourished HEENT: Positive: PERRL, Mucus Membranes Moist Neck: Positive: neck supple, trachea midline Cardiac: Positive: Reg Rate and Rhythm, S1/S2. Negative: Audible Murmur Lungs: Positive: clear to auscultation, Normal Breath Sounds Neuro: Positive: Grossly Intact Abdomen: Positive: Soft, Active Bowel Sounds. Negative: Tender, Distended Female genitourinary: deferred Skin: Positive: Clear Incision: Cardiac Cath Site Musculoskeletal: No Pain, Normal Range of Motion Extremities: Present: normal, edema, Other (left leg swelling not tender or red) Results 01/10/19 02:43 01/09/19 22:19 Coagulation 01/09/19 01/10/19 Range/Units 22:19 02:43 PT 15.3 H 15.4 H (12.2-14.9) Sec. INR 1.24 H 1.25 H (0.87-1.13) APTT 30.1 33.1 (24.2-36.6) Sec. CBC 01/09/19 01/10/19 Range/Units 22:19 02:43 WBC 11.8 H (4.5-11.0) K/mm3 RBC 4.75 (3.65-5.03) M/mm3 Hgb 11.3 12.0 (10.1-14.3) gm/dl Hct 33.6 37.3 (30.3-42.9) % Plt Count 372 378 (140-440) K/mm3 Lymph # 1.7 (1.2-5.4) K/mm3 [place] # 0.7 (0.0-0.8) K/mm3 Eos # 0.1 (0.0-0.4) K/mm3 Baso # 0.1 (0.0-0.1) K/mm3 Comprehensive Metabolic Panel 01/09/19 Range/Units 22:19 Sodium 133 L (137-145) mmol/L Potassium 4.5 (3.6-5.0) mmol/L Chloride 95.7 L (98-107) mmol/L Carbon Dioxide 23 (22-30) mmol/L BUN 22 H (7-17) mg/dL Creatinine 0.7 (0.7-1.2) mg/dL Glucose 135 H (65-100) mg/dL Calcium 9.5 (8.4-10.2) mg/dL EKG interpretations - Telemetry EKG Rhythm: Sinus Rhythm Assessment and Plan 1. Chronic right leg DVT 2. Type 2 diabetes mellitus Plan Patient to have venous Doppler scans done stat on IV anticoagulation with heparin. Obtain an echocardiogram.
--- NOTE | 2019-01-10 11:02 | Vascular Lab Report ---
. DUPLEX DOPPLER LOWER EXTREMITY VEINS, BILATERAL INDICATION: r/o DVT. Acute bilateral lower extremity pain TECHNIQUE: Duplex doppler imaging was performed through the veins of both lower extremities using venous aisha jon and other maneuvers. COMPARISON: No relevant prior imaging study available. FINDINGS: Right Common femoral vein: Occlusive DVT. Right Superficial femoral vein: Occlusive DVT. Right Popliteal vein: Occlusive DVT. Right Calf veins: Occlusive DVT. Left Common femoral vein: Chronic-appearing marginalized DVT. Left Superficial femoral vein: Chronic-appearing marginalized DVT. Left Popliteal vein: No images available. Left Calf veins: No images available. Additional findings: None.. IMPRESSION: 1. Acute occlusive thrombus throughout the right lower extremity. 2. Chronic-appearing nonocclusive thrombus in the left common femoral through superficial femoral vei ns. No imaging below this level. Findings were called to Dr. Saba by the dietetic aide after the exam. Signer Name: Reggie Means MD Signed: 01/10/2019 10:58 AM Workstation Name: [id number]
[2019-01-10] MEDS ORDERED: PNEUMOVAX 23 IM ONE (12:00)
--- NOTE | 2019-01-10 13:26 | Consultation ---
History of Present Illness Consult date: 01/10/19 Requesting physician: RODY ANGELES Reason for consult: pelvic mass History of present illness: Ms Moss is a 68 -[place] female LMP 18 years ago diagnosed with DM 2 in November of this year presented to [facility] ED with complaints of right leg swelling. She states that she has been experiencing aggressively worsening swelling of the right leg for the past 3 days. 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 She went out and bought compression stockings hoping that it would help with swelling. After no improvement she decided to come in for further evaluation. She admits to recent unwante d/undesired weight loss, and was being evaluated for postmenopausal vaginal bleeding. Pelvic u/s showed an enlarged uterus 12.1 x 7.2 x 10.3cm with several fibroids (largest 5cm) and thickened endometrium. She was scheduled for an endometrial biopsy on 01/22/19 for further evaluation. Past History Past Medical History: diabetes, other (Postmenopausal bleeding) Past Surgical History: other (eye surgery) [employer] History: fibroids Social history: no significant social history, single, lives with family Medications and Allergies Allergies Allergy/AdvReac Type Severity Reaction Status Date / Time No Known Allergies Allergy Verified 11/27/18 14:49 Home Medications Medication Instructions Recorded Confirmed Last Taken Type Metformin HCl [Glucophage] 500 mg PO BID #60 tablet 11/16/17 Unknown Rx Active Meds: Active Medications Acetaminophen (Tylenol) 650 mg PO Q4H PRN PRN Reason: Pain MILD(1-3)/Fever >100.5/KEMP Albuterol (Proventil) 2.5 mg IH Q3HRT PRN PRN Reason: Shortness Of Breath Benzonatate (Tessalon Perles) 100 mg PO Q8HR DREW Last Admin: 01/10/19 05:15 Dose: 100 mg Documented by: Dextrose (D50w (25gm) Syringe) 50 ml IV PRN PRN PRN Reason: Hypoglycemia Sodium Chloride (Nacl 0.9% 1000 Ml) 1,000 mls @ 500 mls/hr IV DIRECT DREW Heparin Sodium/Sodium Chloride (Heparin/ 0.45% Nacl-25,000 Unit/500 Ml) 25,000 unit in 500 mls @ 15 mls/hr IV TITR DREW; Protocol Last Admin: 01/10/19 05:15 Dose: 750 units/hr, 15 mls/hr Documented by: Sodium Chloride (Nacl 0.9% 1000 Ml) 1,000 mls @ 50 mls/hr IV DIRECT DREW Last Admin: 01/10/19 05:10 Dose: 50 mls/hr Documented by: Insulin Glargine (Lantus) 5 units SUB-Q QHS DREW Insulin Human Lispro (Humalog) 0 unit SUB-Q ACHS DREW; Protocol Last Admin: 01/10/19 08:11 Dose: Not Given Documented by: Ondansetron HCl (Zofran) 4 mg IV Q8H PRN PRN Reason: Nausea And Vomiting Oxycodone/Acetaminophen (Percocet 5/325) 1 tab PO Q6H PRN PRN Reason: Pain, Moderate (4-6) Sodium Chloride (Sodium Chloride Flush Syringe 10 Ml) 10 ml IV BID DREW Sodium Chloride (Sodium Chloride Flush Syringe 10 Ml) 10 ml IV PRN PRN PRN Reason: LINE FLUSH Review of Systems All systems: negative - Vital Signs Vital signs: Vital Signs Temp Pulse Resp BP Pulse Ox 98.1 F 127 H 18 120/76 98 01/09/19 19:16 01/09/19 19:16 01/09/19 19:16 01/09/19 19:16 01/09/19 19:16 Temp Pulse Resp BP Pulse Ox 97.7 F 111 H 18 105/66 94 01/10/19 08:16 01/10/19 08:16 01/10/19 08:16 01/10/19 08:16 01/10/19 08:16 - Physical Exam Cardiovascular: Regular rate Lungs: Positive: Clear to auscultation Abdomen: Positive: normal appearance Uterus: Positive: enlarged Extremities: Positive: edema Results Result Diagrams: 01/10/19 02:43 01/09/19 22:19 Abnormal lab results 01/09/19 01/09/19 01/09/19 Range/Units 19:29 22:19 22:19 WBC 11.8 H (4.5-11.0) K/mm3 MCV 71 L (79-97) fl MCH 24 L (28-32) pg RDW 16.4 H (13.2-15.2) % Seg Neutrophils % 78.3 H (40.0-70.0) % Seg Neutrophils # 9.2 H (1.8-7.7) K/mm3 PT 15.3 H (12.2-14.9) Sec. INR 1.24 H (0.87-1.13) D-Dimer 6290.21 H (0-234) ng/mlDDU Sodium (137-145) mmol/L Chloride (98-107) mmol/L BUN (7-17) mg/dL Glucose (65-100) mg/dL POC Glucose 185 H (70-105) 01/09/19 01/10/19 01/10/19 Range/Units 22:19 02:43 08:23 WBC (4.5-11.0) K/mm3 MCV (79-97) fl MCH (28-32) pg RDW (13.2-15.2) % Seg Neutrophils % (40.0-70.0) % Seg Neutrophils # (1.8-7.7) K/mm3 PT 15.4 H (12.2-14.9) Sec. INR 1.25 H (0.87-1.13) D-Dimer (0-234) ng/mlDDU Sodium 133 L (137-145) mmol/L Chloride 95.7 L (98-107) mmol/L BUN 22 H (7-17) mg/dL Glucose 135 H (65-100) mg/dL POC Glucose 150 H (70-105) 01/10/19 Range/Units 12:22 WBC (4.5-11.0) K/mm3 MCV (79-97) fl MCH (28-32) pg RDW (13.2-15.2) % Seg Neutrophils % (40.0-70.0) % Seg Neutrophils # (1.8-7.7) K/mm3 PT (12.2-14.9) Sec. INR (0.87-1.13) D-Dimer (0-234) ng/mlDDU Sodium (137-145) mmol/L Chloride (98-107) mmol/L BUN (7-17) mg/dL Glucose (65-100) mg/dL POC Glucose 180 H (70-105) All other labs normal. Ultrasound: report reviewed Assessment and Plan - Patient Problems (1) Postmenopausal bleeding Onset Date: 01/10/19 Current Visit: Yes Status: Acute Plan to address problem: A: Postmenopausal bleeding Uterine fibroids Right leg swelling DM P: Agree with admission Will perform hysteroscopy with D&C to obtain tissue diagnosis (2) Uterine fibroid Onset Date: 01/10/19 Current Visit: Yes Status: Acute Qualifiers: Uterine leiomyoma location: intramural and submucous Qualified Code(s): D25.1 - Intramural leiomyoma of uterus; D25.0 - Submucous leiomyoma of uterus (3) New onset type 2 diabetes mellitus Onset Date: 01/10/19 Current Visit: Yes Status: Chronic (4) Right leg swelling Onset Date: 01/10/19 Current Visit: Yes Status: Acute
--- NOTE | 2019-01-10 15:22 | Progress Note ---
Assessment and Plan Assessment and plan: --Mild bilateral Peripheral PE: On heparin drip, supportive care, oxygen titrated to O2 sats more than 90% CTA chest; 1. Mild peripheral bilateral PTE, as above. 2. Right-sided cardiomegaly with evidence of right heart failure. 3. There are several noncalcified bilateral pulmonary nodules, the largest measures 6 mm. See below for follow-up recommendations. These are new since the prior. 4. Diffuse anasarca. Small right pleural effusion. --Bilateral DVT; Continue heparin drip, delirium supportive care --Family history of thromboembolism;[patient's sister had DVT/PE] Hypercarbic state, hypercoagulable panel Hematology consult --Mild hyponatremia; monitor electrolytes monitor electrolytes --Mild pulmonary hypertension; supportive care --Right-sided heart failure with ejection fraction of 55-60%[11/15/2017] --Type 2 diabetes mellitus; Accu-Chek sliding scale coverage and ADA diet and i nsulin -- Postmenopausal bleeding/fibroid uterus ; SUPERVISOR CAB evaluation and treatment appreciated --DVT Prophylaxis: Heparin Drip Monitor closely and adjust management as needed History Interval history: Patient seen and examined medical records reviewed Admitted with bilateral lower extremity DVT and bilateral pulmonary embolism On heparin drip, Patient feels better no new complaints Denies chest pain or shortness of breath Vital signs noted Hospitalist Physical - Constitutional Vitals: Temp Pulse Resp BP Pulse Ox 97.7 F 111 H 18 105/66 94 01/10/19 08:16 01/10/19 08:16 01/10/19 08:16 01/10/19 08:16 01/10/19 08:16 General appearance: Present: no acute distress, well-nourished - EENT Eyes: Present: PERRL, EOM intact - Neck Neck: Present: supple, normal ROM - Respiratory Respiratory effort: normal Respiratory: bilateral: diminished, rhonchi, negative: rales, wheezing - Cardiovascular Rhythm: regular Heart Sounds: Present: S1 & S2 - Extremities Extremities: no ischemia Extremity abnormal: edema (right lower extremity) - Abdominal General gastrointestinal: soft, non-tender, non-distended, normal bowel sounds - Integumentary Integumentary: Present: clear, warm - Psychiatric Psychiatric: appropriate mood/affect, cooperative - Neurologic Neurologic: moves all extremities Results - Labs CBC & Chem 7: 01/10/19 02:43 07/06/19 22:19 Labs: Laboratory Last Values WBC 11.8 K/mm3 (4.5-11.0) H 01/09/19 22:19 RBC 4.75 M/mm3 (3.65-5.03) 01/09/19 22:19 Hgb 12.0 gm/dl (10.1-14.3) 01/10/19 02:43 Hct 37.3 % (30.3-42.9) 01/10/19 02:43 MCV 71 fl (79-97) L 01/09/19 22:19 MCH 24 pg (28-32) L 01/09/19 22:19 MCHC 34 % (30-34) 01/09/19 22:19 RDW 16.4 % (13.2-15.2) H 01/09/19 22:19 Plt Count 378 K/mm3 (140-440) 01/10/19 02:43 Lymph % (Auto) 14.6 % (13.4-35.0) 01/09/19 22:19 [place] % (Auto) 5.9 % (0.0-7.3) 01/09/19 22:19 Eos % (Auto) 0.5 % (0.0-4.3) 01/09/19 22:19 Baso % (Auto) 0.7 % (0.0-1.8) 01/09/19 22:19 Lymph # 1.7 K/mm3 (1.2-5.4) 01/09/19 22:19 [place] # 0.7 K/mm3 (0.0-0.8) 01/09/19 22:19 Eos # 0.1 K/mm3 (0.0-0.4) 01/09/19 22:19 Baso # 0.1 K/mm3 (0.0-0.1) 01/09/19 22:19 Seg Neutrophils % 78.3 % (40.0-70.0) H 01/09/19 22:19 Seg Neutrophils # 9.2 K/mm3 (1.8-7.7) H 01/09/19 22:19 PT 15.4 Sec. (12.2-14.9) H 01/10/19 02:43 INR 1.25 (0.87-1.13) H 01/10/19 02:43 APTT 33.1 Sec. (24.2-36.6) 01/10/19 02:43 6290.21 ng/mlDDU (0-234) H 01/09/19 22:19 Heparin Anti-Xa Level 0.31 U.I./ml (0.3-0.7) 01/10/19 12:10 Sodium 133 mmol/L (137-145) L 01/09/19 22:19 Potassium 4.5 mmol/L (3.6-5.0) 01/09/19 22:19 Chloride 95.7 mmol/L (98-107) L 01/09/19 22:19 Carbon Dioxide 23 mmol/L (22-30) 01/09/19 22:19 19 mmol/L 01/09/19 22:19 BUN 22 mg/dL (7-17) H 01/09/19 22:19 0.7 mg/dL (0.7-1.2) 01/09/19 22:19 Estimated GFR > 60 ml/min 01/09/19 22:19 31 % 01/09/19 22:19 Glucose 135 mg/dL (65-100) H 01/09/19 22:19 POC Glucose 180 (70-105) H 01/10/19 12:22 Calcium 9.5 mg/dL (8.4-10.2) 01/09/19 22:19 TSH 3.410 mlU/mL (0.270-4.200) 01/09/19 22:19 Free T4 1.08 ng/dL (0.76-1.46) 01/09/19 22:19 Blood Type B POSITIVE 01/10/19 13:50 Antibody Screen Negative 01/10/19 13:50 Active Medications - Current Medications Current Medications: Generic Name Dose Route Start Last Admin Trade Name Freq PRN Reason Stop Dose Admin Acetaminophen 650 mg 01/10/19 01:16 Tylenol PO Q4H PRN Pain MILD(1-3)/Fever >100.5/KEMP Albuterol 2.5 mg 01/10/19 01:16 Proventil IH Q3HRT PRN Shortness Of Breath Benzonatate 100 mg 01/10/19 06:00 01/10/19 05:15 Tessalon Perles PO 100 mg Q8HR DREW Administration Dextrose 50 ml 01/10/19 01:16 D50w (25gm) Syringe IV PRN PRN Hypoglycemia Sodium Chloride 1,000 mls @ 500 mls/hr 01/09/19 23:45 Nacl 0.9% 1000 Ml IV DIRECT DREW Heparin Sodium/Sodium Chloride 25,000 unit in 500 mls @ 15 mls/hr 01/10/19 03:00 01/10/19 13:51 Heparin/ 0.45% Nacl-25,000 Unit/500 Ml IV 750 units/hr TITR DREW 15 mls/hr Titration Protocol 750 UNITS/HR Sodium Chloride 1,000 mls @ 50 mls/hr 01/10/19 03:00 01/10/19 05:10 Nacl 0.9% 1000 Ml IV 50 mls/hr DIRECT DREW Administration Cefazolin Sodium 2 gm in 20 mls @ 80 mls/hr 01/11/19 08:00 Ancef/Sterile Water 2 Gm/20 Ml IV 01/11/19 23:59 PREOP NR Protocol Insulin Glargine 5 units 01/10/19 22:00 Lantus SUB-Q QHS DREW Insulin Human Lispro 0 unit 01/10/19 07:30 01/10/19 08:11 Humalog SUB-Q Not Given ACHS [facility] Protocol Ondansetron HCl 4 mg 01/10/19 01:16 Zofran IV Q8H PRN Nausea And Vomiting Oxycodone/Acetaminophen 1 tab 01/10/19 01:16 Percocet 5/325 PO Q6H PRN Pain, Moderate (4-6) Sodium Chloride 10 ml 01/10/19 10:00 Sodium Chloride Flush Syringe 10 Ml IV BID DREW Sodium Chloride 10 ml 01/10/19 01:16 Sodium Chloride Flush Syringe 10 Ml IV PRN PRN LINE FLUSH Nutrition/Malnutrition Assess - Dietary Evaluation Nutrition/Malnutrition Findings: Nutrition Notes Start: 01/10/19 13:57 Freq: Status: Active Protocol: Document 01/10/19 13:57 RM (Rec: 01/10/19 14:05 RM [id number]) Nutrition Notes Need for Assessment generated from: MD Order Initial or Follow up Assessment Current Diagnosis Diabetes Other Pertinent Diagnosis Anasarca, Bilat PTE Current Diet Cardiac/Consistent CHO Labs/Tests POC 185, 150 No A1c Pertinent Medications Reviewed Height 5 ft 3 in Weight 53.1 kg [place] Body Weight (kg) 52.27 BMI 20.7 Subjective/Other Information Consulted for DM diet education. 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 Stated that her appetite is good. Noted lunch at bedside with 1/3 eaten. Pt stated that she does not like eggs that much so she did not eat all of the eggs. Pt stated that she had been given handouts on DM diet in the past but no one had discussed them with her. Reviewed DM diet education. Gave handout. Burn Absent Trauma Absent #1 Nutrition Diagnosis Food and nutrition-related knowledge deficit Etiology lack of adequate prior education As Evidenced by Signs and Symptoms pt desire for education Nutrition Intervention Teaching Recipient Patient Learning Readiness Good Teaching Methods Discussion,Handout Response to Teaching Verbalize understanding Education Handouts Provided Carbohydrate counting for people with diabetes Barriers to Learning No Barriers RD phone number provided Yes Patient aware of follow up options Yes Goal #1 Utilize carbohydrate counting Anticipated Discharge Needs: Cardiac/Consistent CHO diet Follow-Up By: 01/12/19 Additional Comments Follow adequate PO intakes
[2019-01-10] MEDS: SODIUM CHLORIDE FLUSH SYRINGE 10 ML IV SCH ×2 (19:33→22:07)
[2019-01-10] MEDS: LANTUS SUB-Q SCH (22:07)
[2019-01-11] MEDS: NACL 0.9% 1000 ML 1,000 ML IV SCH ×2 (03:24→21:29)
[2019-01-11 04:53] LABS: Basophils # (Auto) 0.1 K/mm3 (0.0-0.1); Basophils % (Auto) 0.5 % (0.0-1.8); Eosinophils # (Auto) 0.1 K/mm3 (0.0-0.4); Eosinophils % (Auto) 0.6 % (0.0-4.3); Hematocrit 34.1 % (30.3-42.9); Lymphocytes # (Auto) 1.8 K/mm3 (1.2-5.4); Lymphocytes % (Auto) 18.9 % (13.4-35.0); Mean Corpuscular HGB Conc 32 % (30-34); Mean Corpuscular Volume 71 fl (79-97); Monocytes # (Auto) 0.6 K/mm3 (0.0-0.8); Platelet Count 387 K/mm3 (140-440); Red Cell Distribution Width 16.2 % (13.2-15.2)
[2019-01-11 05:15] LABS: BUN/Creatinine Ratio 24; Blood Urea Nitrogen 12 mg/dL (7-17); Calcium 8.6 mg/dL (8.4-10.2); Hemolysis Index 4
[2019-01-11] MEDS: TESSALON PERLES PO SCH ×3 (06:30→21:27)
--- NOTE | 2019-01-11 07:24 | Event Note ---
Date: 01/11/19 [id number]
[2019-01-11] MEDS ORDERED: ANCEF/STERILE WATER 2 GM/20 ML 2 GM/20 ML SYRINGE IV NR (08:00)
[2019-01-11] MEDS: HumaLOG SUB-Q SCH ×4 (08:09→21:26)
[2019-01-11 09:45] LABS: Iron 19 ug/dL (37-170); Total Iron Binding Capacity 261 mcg/dL (250-450)
[2019-01-11] MEDS ORDERED: DIPRIVAN 10 MG/ML IV ONE (09:58)
[2019-01-11] MEDS ORDERED: SUBLIMAZE ONE (09:58)
--- NOTE | 2019-01-11 12:25 | Progress Note ---
Assessment and Plan Acute PE/DVT on IV heparin drip Diabetes Postmenopausal bleeding Uterine fibroids An echocardiogram reports dilated right heart chambers with severe pulmonary hypertension, RVSP 65-70 mmHg. Finding consistent with cor-pulmonale. Normal left ventricular systolic function, EF 60-65%. Recommendations: Due to acute PE and DVT, patient is not a candidate for [employer]ER workup. Pulmonary follow up and management of her cor-pulmonale and acute PE. Conservative cardiac management. Subjective Date of service: 01/11/19 Interval history: Patient is resting in bed comfortably. She denies chest pain and shortness of breath. Objective Vital Signs Temp Pulse Pulse Resp BP BP Pulse Ox 01/11/19 08:39 97.7 F 110 H 18 97/65 95 01/11/19 04:00 97.6 F 79 16 118/66 96 01/10/19 23:53 97.6 F 106 H 16 116/92 98 01/10/19 20:55 116 H 18 98 01/10/19 19:22 97.6 F 122 H 16 110/73 93 01/10/19 19:21 123 H 01/10/19 16:36 98.1 F 118 H 18 112/67 96 01/10/19 15:50 20 97 - Physical Examination General: No Apparent Distress HEENT: Positive: PERRL Neck: Positive: neck supple, trachea midline Cardiac: Positive: Reg Rate and Rhythm Lungs: Positive: Decreased Breath Sounds Neuro: Positive: Grossly Intact Abdomen: Positive: Soft, Active Bowel Sounds Extremities: Absent: edema - Labs and Meds CBC 01/11/19 Range/Units 04:11 WBC 9.4 (4.5-11.0) K/mm3 RBC 4.80 (3.65-5.03) M/mm3 Hgb 11.0 (10.1-14.3) gm/dl Hct 34.1 (30.3-42.9) % Plt Count 387 (140-440) K/mm3 Lymph # 1.8 (1.2-5.4) K/mm3 [place] # 0.6 (0.0-0.8) K/mm3 Eos # 0.1 (0.0-0.4) K/mm3 Baso # 0.1 (0.0-0.1) K/mm3 Comprehensive Metabolic Panel 01/11/19 Range/Units 04:11 Sodium 136 L (137-145) mmol/L Potassium 4.6 (3.6-5.0) mmol/L Chloride 100.4 (98-107) mmol/L Carbon Dioxide 25 (22-30) mmol/L BUN 12 (7-17) mg/dL Creatinine 0.5 L (0.7-1.2) mg/dL Glucose 134 H (65-100) mg/dL Calcium 8.6 (8.4-10.2) mg/dL
[2019-01-11] MEDS ORDERED: HEPARIN 10,000 UNITS/10 ML IV ONE (15:19)
[2019-01-11] MEDS: HEPARIN/ 0.45% NACL-25,000 UNIT/500 ML 25,000 UNIT/500 ML BAG IV SCH (15:47)
--- NOTE | 2019-01-11 16:59 | Progress Note ---
Assessment and Plan - Patient Problems (1) Postmenopausal bleeding Onset Date: 01/10/19 Current Visit: Yes Status: Acute Plan to address problem: A: Postmenopausal bleeding Uterine fibroids Right leg swelling DM P: Continue present management Will perform hysteroscopy with D&C to obtain tissue diagnosis once Medical clearance is granted, or on out-patient basis (2) Uterine fibroid Onset Date: 01/10/19 Current Visit: Yes Status: Acute Qualifiers: Uterine leiomyoma location: intramural and submucous Qualified Code(s): D25.1 - Intramural leiomyoma of uterus; D25.0 - Submucous leiomyoma of uterus (3) New onset type 2 diabetes mellitus Onset Date: 01/10/19 Current Visit: Yes Status: Chronic (4) Right leg swelling Onset Date: 01/10/19 Current Visit: Yes Status: Acute Subjective - Subjective Date of service: 01/11/19 Principal diagnosis: PMB Interval history: Pt is feeling well without complaints. Patient reports: appetite normal, voiding normally, pain well controlled, ambulating normally, no dizzy ambulation, no nauseated Objective - Vital Signs Latest vital signs: Vital Signs Temp Pulse Pulse Resp BP BP Pulse Ox 01/11/19 11:30 97.8 F 109 H 18 109/69 98 01/11/19 08:39 97.7 F 110 H 18 97/65 95 01/11/19 04:00 97.6 F 79 16 118/66 96 01/10/19 23:53 97.6 F 106 H 16 116/92 98 01/10/19 20:55 116 H 18 98 01/10/19 19:22 97.6 F 122 H 16 110/73 93 01/10/19 19:21 123 H Intake and Output 01/11/19 01/11/19 01/11/19 06:59 14:59 22:59 Intake Total 1000 371 Balance 1000 371 Intake: IV 1000 371 HEPARIN/ 0.45% NACL-25, 371 000 UNIT/500 ML 25,000 unit In 500 ml @ 750 UNITS/HR 15 mls/hr IV TITR DREW Rx#:[id number] NaCl 0.9% 1000 ml 1,000 1000 ml @ 50 mls/hr IV DIRECT DREW Rx#:[id number] Other: Voiding Method Toilet Weight 53.1 kg - Labs Labs: Abnormal lab results 01/10/19 01/10/19 01/11/19 Range/Units 16:44 21:01 04:11 MCV 71 L (79-97) fl MCH 23 L (28-32) pg RDW 16.2 H (13.2-15.2) % Seg Neutrophils % 74.0 H (40.0-70.0) % Heparin Anti-Xa Level (0.3-0.7) U.I./ml Sodium (137-145) mmol/L Creatinine (0.7-1.2) mg/dL Glucose (65-100) mg/dL POC Glucose 153 H 183 H (70-105) Iron (37-170) ug/dL Vitamin B12 (211-911) pg/mL 01/11/19 01/11/19 01/11/19 Range/Units 04:11 07:37 08:23 MCV (79-97) fl MCH (28-32) pg RDW (13.2-15.2) % Seg Neutrophils % (40.0-70.0) % Heparin Anti-Xa Level (0.3-0.7) U.I./ml Sodium 136 L (137-145) mmol/L Creatinine 0.5 L (0.7-1.2) mg/dL Glucose 134 H (65-100) mg/dL POC Glucose 153 H (70-105) Iron 19 L (37-170) ug/dL Vitamin B12 (211-911) pg/mL 01/11/19 01/11/19 01/11/19 Range/Units 08:23 12:04 13:47 MCV (79-97) fl MCH (28-32) pg RDW (13.2-15.2) % Seg Neutrophils % (40.0-70.0) % Heparin Anti-Xa Level < 0.10 L (0.3-0.7) U.I./ml Sodium (137-145) mmol/L Creatinine (0.7-1.2) mg/dL Glucose (65-100) mg/dL POC Glucose 136 H (70-105) Iron (37-170) ug/dL Vitamin B12 1238 H (211-911) pg/mL 01/11/19 Range/Units 16:58 MCV (79-97) fl MCH (28-32) pg RDW (13.2-15.2) % Seg Neutrophils % (40.0-70.0) % Heparin Anti-Xa Level (0.3-0.7) U.I./ml Sodium (137-145) mmol/L Creatinine (0.7-1.2) mg/dL Glucose (65-100) mg/dL POC Glucose 195 H (70-105) Iron (37-170) ug/dL Vitamin B12 (211-911) pg/mL
--- NOTE | 2019-01-11 17:40 | Progress Note ---
Assessment and Plan Assessment and plan: 68 -[place] female newly diagnosed with DM 2 and November of this year presents to [facility] ED with complaints of right leg swelling. She states that has has assisted in the history taking. He states that she has been experiencing aggressively worsening swelling of the right leg for the past 3 days. After no improvement she decided to come in for further evaluation. Patient admits to recent unwanted/undesired weight loss. Review of medical record shows that patient was seen in ED in November with complaints of postmenopausal vaginal bleeding. She is advised to follow up withDALLIN Melendez on 01/22/19 for further evaluation.Initial evaluation with CTA chest and venous doppler, show javier PE and javier DVT. Started on heparin drip,Evaluated by [employer] Assessment and plan: --Mild bilateral Peripheral PE: On heparin drip, supportive care, oxygen titrated to O2 sats more than 90% CTA chest; 1. Mild peripheral bilateral PTE, as above. 2. Right-sided cardiomegaly with evidence of right heart failure. 3. There are several noncalcified bilateral pulmonary nodules, the largest measures 6 mm. See below for follow-up recommendations. These are new since the prior. 4. Diffuse anasarca. Small right pleural effusion. 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 Vital signs stable Hospitalist Physical - Constitutional Vitals: Temp Pulse Resp BP Pulse Ox 97.8 F 109 H 18 109/69 98 01/11/19 11:30 01/11/19 11:30 01/11/19 11:30 01/11/19 11:30 01/11/19 11:30 General appearance: Present: no acute distress, well-nourished - EENT Eyes: Present: PERRL, EOM intact - Neck Neck: Present: supple, normal ROM - Respiratory Respiratory effort: normal Respiratory: bilateral: diminished, rhonchi, negative: rales, wheezing - Cardiovascular Rhythm: regular Heart Sounds: Present: S1 & S2 - Extremities Extremities: no ischemia Extremity abnormal: edema (RtLE) - Abdominal General gastrointestinal: soft, non-tender, non-distended, normal bowel sounds - Integumentary Integumentary: Present: clear, warm - Psychiatric Psychiatric: appropriate mood/affect, cooperative - Neurologic Neurologic: CNII-XII intact, moves all extremities Results - Labs CBC & Chem 7: 01/12/19 07:24 01/11/19 04:11 Labs: Laboratory Last Values WBC 9.4 K/mm3 (4.5-11.0) 01/11/19 04:11 RBC 4.80 M/mm3 (3.65-5.03) 01/11/19 04:11 Hgb 11.0 gm/dl (10.1-14.3) 01/11/19 04:11 Hct 34.1 % (30.3-42.9) 01/11/19 04:11 MCV 71 fl (79-97) L 01/11/19 04:11 MCH 23 pg (28-32) L 01/11/19 04:11 MCHC 32 % (30-34) 01/11/19 04:11 RDW 16.2 % (13.2-15.2) H 01/11/19 04:11 Plt Count 387 K/mm3 (140-440) 01/11/19 04:11 Lymph % (Auto) 18.9 % (13.4-35.0) 01/11/19 04:11 [place] % (Auto) 6.0 % (0.0-7.3) 01/11/19 04:11 Eos % (Auto) 0.6 % (0.0-4.3) 01/11/19 04:11 Baso % (Auto) 0.5 % (0.0-1.8) 01/11/19 04:11 Lymph # 1.8 K/mm3 (1.2-5.4) 01/11/19 04:11 [place] # 0.6 K/mm3 (0.0-0.8) 01/11/19 04:11 Eos # 0.1 K/mm3 (0.0-0.4) 01/11/19 04:11 Baso # 0.1 K/mm3 (0.0-0.1) 01/11/19 04:11 Seg Neutrophils % 74.0 % (40.0-70.0) H 01/11/19 04:11 Seg Neutrophils # 6.9 K/mm3 (1.8-7.7) 01/11/19 04:11 Percent Retic 2.21 % (0.78-2.58) 01/11/19 08:23 PT 15.4 Sec. (12.2-14.9) H 01/10/19 02:43 INR 1.25 (0.87-1.13) H 01/10/19 02:43 APTT 33.1 Sec. (24.2-36.6) 01/10/19 02:43 6290.21 ng/mlDDU (0-234) H 01/09/19 22:19 Heparin Anti-Xa Level < 0.10 U.I./ml (0.3-0.7) L 01/11/19 13:47 Sodium 136 mmol/L (137-145) L 01/11/19 04:11 Potassium 4.6 mmol/L (3.6-5.0) 01/11/19 04:11 Chloride 100.4 mmol/L (98-107) 01/11/19 04:11 Carbon Dioxide 25 mmol/L (22-30) 01/11/19 04:11 15 mmol/L 01/11/19 04:11 BUN 12 mg/dL (7-17) 01/11/19 04:11 0.5 mg/dL (0.7-1.2) L 01/11/19 04:11 Estimated GFR > 60 ml/min 01/11/19 04:11 24 % 01/11/19 04:11 Glucose 134 mg/dL (65-100) H 01/11/19 04:11 POC Glucose 195 (70-105) H 01/11/19 16:58 Calcium 8.6 mg/dL (8.4-10.2) 01/11/19 04:11 Iron 19 ug/dL (37-170) L 01/11/19 08:23 TIBC 261 mcg/dL (250-450) 01/11/19 08:23 86.0 ng/mL (13.0-400.0) 01/11/19 08:23 Vitamin B12 1238 pg/mL (211-911) H 01/11/19 08:23 12.80 ng/mL (7.3-26.0) 01/11/19 08:23 TSH 3.410 mlU/mL (0.270-4.200) 01/09/19 22:19 Free T4 1.08 ng/dL (0.76-1.46) 01/09/19 22:19 Blood Type B POSITIVE 01/10/19 13:50 Antibody Screen Negative 01/10/19 13:50 Active Medications - Current Medications Current Medications: Generic Name Dose Route Start Last Admin Trade Name Freq PRN Reason Stop Dose Admin Acetaminophen 650 mg 01/10/19 01:16 Tylenol PO Q4H PRN Pain MILD(1-3)/Fever >100.5/KEMP Albuterol 2.5 mg 01/10/19 01:16 Proventil IH Q3HRT PRN Shortness Of Breath Benzonatate 100 mg 01/10/19 06:00 01/11/19 06:30 Tessalon Perles PO Not Given Q8HR DREW Dextrose 50 ml 01/10/19 01:16 D50w (25gm) Syringe IV PRN PRN Hypoglycemia Heparin Sodium/Sodium Chloride 25,000 unit in 500 mls @ 15 mls/hr 01/10/19 03:00 01/11/19 15:47 Heparin/ 0.45% Nacl-25,000 Unit/500 Ml IV 900 units/hr TITR DREW 18 mls/hr Administration Protocol 750 UNITS/HR Sodium Chloride 1,000 mls @ 50 mls/hr 01/10/19 03:00 01/11/19 03:24 Nacl 0.9% 1000 Ml IV 50 mls/hr DIRECT DREW Administration Cefazolin Sodium 2 gm in 20 mls @ 80 mls/hr 01/11/19 08:00 Ancef/Sterile Water 2 Gm/20 Ml IV 01/11/19 23:59 PREOP NR Protocol Insulin Glargine 5 units 01/10/19 22:00 01/10/19 22:07 Lantus SUB-Q Not Given QHS [facility] Insulin Human Lispro 0 unit 01/10/19 07:30 01/11/19 17:35 Humalog SUB-Q 2 unit ACHS DREW Administration Protocol Ondansetron HCl 4 mg 01/10/19 01:16 Zofran IV Q8H PRN Nausea And Vomiting Oxycodone/Acetaminophen 1 tab 01/10/19 01:16 Percocet 5/325 PO Q6H PRN Pain, Moderate (4-6) Sodium Chloride 10 ml 01/10/19 10:00 01/10/19 22:07 Sodium Chloride Flush Syringe 10 Ml IV 10 ml BID DREW Administration Sodium Chloride 10 ml 01/10/19 01:16 Sodium Chloride Flush Syringe 10 Ml IV PRN PRN LINE FLUSH Nutrition/Malnutrition Assess - Dietary Evaluation Nutrition/Malnutrition Findings: Nutrition Notes Start: 01/10/19 13:57 Freq: Status: Active Protocol: Document 01/10/19 13:57 RM (Rec: 01/10/19 14:05 RM [id number]) Nutrition Notes Need for Assessment generated from: MD Order Initial or Follow up Assessment Current Diagnosis Diabetes Other Pertinent Diagnosis Anasarca, Bilat PTE Current Diet Cardiac/Consistent CHO Labs/Tests POC 185, 150 No A1c Pertinent Medications Reviewed Height 5 ft 3 in Weight 53.1 kg [place] Body Weight (kg) 52.27 BMI 20.7 Subjective/Other Information Consulted for DM diet education. 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 Stated that her appetite is good. Noted lunch at bedside with 1/3 eaten. Pt stated that she does not like eggs that much so she did not eat all of the eggs. Pt stated that she had been given handouts on DM diet in the past but no one had discussed them with her. Reviewed DM diet education. Gave handout. Burn Absent Trauma Absent #1 Nutrition Diagnosis Food and nutrition-related knowledge deficit Etiology lack of adequate prior education As Evidenced by Signs and Symptoms pt desire for education Nutrition Intervention Teaching Recipient Patient Learning Readiness Good Teaching Methods Discussion,Handout Response to Teaching Verbalize understanding Education Handouts Provided Carbohydrate counting for people with diabetes Barriers to Learning No Barriers RD phone number provided Yes Patient aware of follow up options Yes Goal #1 Utilize carbohydrate counting Anticipated Discharge Needs: Cardiac/Consistent CHO diet Follow-Up By: 01/12/19 Additional Comments Follow adequate PO intakes
[2019-01-11] MEDS: SODIUM CHLORIDE FLUSH SYRINGE 10 ML IV SCH ×2 (19:55→21:27)
[2019-01-11] MEDS: LANTUS SUB-Q SCH (21:26)
[2019-01-12] MEDS: TESSALON PERLES PO SCH (06:03)
[2019-01-12 07:44] LABS: Hematocrit 32.7 % (30.3-42.9); Hemoglobin 10.7 gm/dl (10.1-14.3)
--- NOTE | 2019-01-12 07:47 | Hem/Onc Progress Note ---
Assessment and Plan 1. Right common femoral deep venous thrombosis, left chronic deep vein thrombosis. 2. Bilateral pulmonary embolism. The patient is on anticoagulation. Her vaginal bleed, pathology may have a role. 2. Family history of deep venous thrombosis present. We will investigate the etiology as an outpatient, she is on heparin drip. She would need oral anticoagulation with either warfarin or Eliquis versus Xarelto. However, gynecology procedure is being looked into, timing of this need some coordination. 3. History of hyponatremia. 4. History of right-sided heart failure, ejection fraction 55%. 5. Diabetes. 6. Mild pulmonary hypertension. I will follow the patient during inpatient stay and then in the clinic setting. OP follow up an option - Patient Problems (1) Pulmonary embolism Status: Acute Subjective Date of service: 01/12/19 Principal diagnosis: DVT- PE Interval history: on heparin Objective - Exam Narrative Exam: HEENT: No pallor, no icterus. NECK: No neck lymph nodes. HEART: S1, S2. LUNGS: Clear to auscultation. ABDOMEN: Soft. No guarding. NEUROLOGIC: Alert, awake, oriented. leg edema + - Constitutional Vitals: Last Vital Signs Temp 98.1 F 01/12/19 04:31 Pulse 108 H 01/12/19 04:31 Resp 18 01/12/19 04:31 BP 100/70 01/12/19 04:31 Pulse Ox 97 01/12/19 04:31 - Labs Lab Results: Laboratory Results - last 24 hr 01/11/19 01/11/19 01/11/19 08:23 08:23 08:23 Percent Retic 2.21 Heparin Anti-Xa Level POC Glucose Iron 19 L TIBC 261 Ferritin 86.0 Vitamin B12 Folate 01/11/19 01/11/19 01/11/19 08:23 08:23 12:04 Percent Retic Heparin Anti-Xa Level POC Glucose 136 H Iron TIBC Ferritin Vitamin B12 1238 H Folate 12.80 01/11/19 01/11/19 01/11/19 13:47 16:58 20:10 Percent Retic Heparin Anti-Xa Level < 0.10 L POC Glucose 195 H 219 H Iron TIBC Ferritin Vitamin B12 Folate 01/11/19 21:37 Percent Retic Heparin Anti-Xa Level 0.13 L POC Glucose Iron TIBC Ferritin Vitamin B12 Folate Medications & Allergies - Medications Allergies/Adverse Reactions: Allergies No Known Allergies Allergy (Verified 11/27/18 14:49) Home Medications: Home Medications Medication Instructions Recorded Confirmed Last Taken Type RX: metFORMIN [Glucophage] 1,000 mg PO BID 01/10/19 01/10/19 Unknown History RX: Calcium Carbonate [Calcium 600 mg PO DAILY 01/11/19 01/11/19 Unknown History 600MG TAB] Apixaban [Eliquis] 2 tab PO BID #26 tablet 01/12/19 Unknown Rx Apixaban [Eliquis] 5 mg PO BID #52 tablet 01/12/19 Unknown Rx RX: Benzonatate [Tessalon Perles] 100 mg PO Q8HR #20 capsule 01/12/19 Unknown Rx Active Medications: Generic Name Dose Route Start Last Admin Trade Name Freq PRN Reason Stop Dose Admin Acetaminophen 650 mg 01/10/19 01:16 Tylenol PO Q4H PRN Pain MILD(1-3)/Fever >100.5/KEMP Albuterol 2.5 mg 01/10/19 01:16 Proventil IH Q3HRT PRN Shortness Of Breath Apixaban 10 mg 01/12/19 10:00 Eliquis PO Q12HR DREW Protocol Benzonatate 100 mg 01/10/19 06:00 01/12/19 06:03 Tessalon Perles PO 100 mg Q8HR DREW Administration Dextrose 50 ml 01/10/19 01:16 D50w (25gm) Syringe IV PRN PRN Hypoglycemia Sodium Chloride 1,000 mls @ 50 mls/hr 01/10/19 03:00 01/11/19 21:29 Nacl 0.9% 1000 Ml IV 50 mls/hr DIRECT DREW Administration Insulin Glargine 5 units 01/10/19 22:00 01/11/19 21:26 Lantus SUB-Q 5 units QHS DREW Administration Insulin Human Lispro 0 unit 01/10/19 07:30 01/11/19 21:26 Humalog SUB-Q 3 unit ACHS DREW Administration Protocol Ondansetron HCl 4 mg 01/10/19 01:16 Zofran IV Q8H PRN Nausea And Vomiting Oxycodone/Acetaminophen 1 tab 01/10/19 01:16 Percocet 5/325 PO Q6H PRN Pain, Moderate (4-6) Sodium Chloride 10 ml 01/10/19 10:00 01/11/19 21:27 Sodium Chloride Flush Syringe 10 Ml IV 10 ml BID DREW Administration Sodium Chloride 10 ml 01/10/19 01:16 Sodium Chloride Flush Syringe 10 Ml IV PRN PRN LINE FLUSH
[2019-01-12] MEDS: HumaLOG SUB-Q SCH (08:59)
[2019-01-12] MEDS ORDERED: ELIQUIS PO SCH (10:00)
[2019-01-12] MEDS: SODIUM CHLORIDE FLUSH SYRINGE 10 ML IV SCH (11:40)
--- NOTE | 2019-01-12 12:19 | Progress Note ---
Assessment and Plan Acute PE/DVT initiated on eliquis Diabetes Postmenopausal bleeding Uterine fibroids An echocardiogram reports dilated right heart chambers with severe pulmonary hypertension, RVSP 65-70 mmHg. Normal left ventricular systolic function, EF 60- 65%. Conservative cardiac management. We will follow intermittently. Subjective Date of service: 01/12/19 Principal diagnosis: PMB Objective Vital Signs Temp Pulse Pulse Resp BP Pulse Ox 01/12/19 09:08 107 H 18 104/69 95 01/12/19 08:47 108 H 01/12/19 04:31 98.1 F 108 H 18 100/70 97 01/11/19 23:56 98.4 F 115 H 18 109/73 94 01/11/19 20:15 120 H 20 01/11/19 19:50 120 H 01/11/19 19:22 98.1 F 122 H 18 106/71 96 01/11/19 16:39 98.1 F 119 H 18 87/54 94 - Physical Examination General: No Apparent Distress HEENT: Positive: PERRL Neck: Positive: neck supple, trachea midline Neuro: Positive: Grossly Intact Abdomen: Positive: Soft, Active Bowel Sounds Skin: Positive: Clear Incision: Cardiac Cath Site Musculoskeletal: No Pain, Normal Range of Motion Extremities: Absent: edema - Labs and Meds CBC 01/12/19 Range/Units 07:24 Hgb 10.7 (10.1-14.3) gm/dl Hct 32.7 (30.3-42.9) % Plt Count 388 (140-440) K/mm3
[2019-01-12 12:23] VITALS: BP 109/59
--- NOTE | 2019-01-12 12:32 | Discharge Summary ---
Providers - Providers Date of Admission: 01/10/19 03:35 Date of discharge: 01/12/19 Attending physician: CK BORJA 01/10/19 01:16 Consult to Physician [CONS] Routine Comment: Consulting Provider: VICENTA RIVAS Physician Instructions: Reason For Exam: pe, rhf 01/10/19 01:21 Consult to Dietitian/Nutrition [CONS] Routine Physician Instructions: Reason For Exam: Reason for Consult: Diet education 01/10/19 02:31 Consult to Physician [CONS] Routine Comment: Consulting Provider: JASMYNE MELENDEZ Physician Instructions: Reason For Exam: ascites, evaluate for malignancy 01/10/19 11:52 Consult to Physician [CONS] Routine Comment: Consulting Provider: SOLIS MENDOSA Physician Instructions: Reason For Exam: Javier PE/Javier DVT Primary care physician: [facility], Hospitalization Reason for admission: Rt leg swelling Condition: Stable Pertinent studies: CTA chest; 1. Mild peripheral bilateral PTE, as above. 2. Right-sided cardiomegaly with evidence of right heart failure. 3. There are several noncalcified bilateral pulmonary nodules, the largest measures 6 mm. See below for follow-up recommendations. These are new since the prior. 4. Diffuse anasarca. Small right pleural effusion. Hospital course: 68 -[place] female newly diagnosed with DM 2 and November of this year presents to [facility] ED with complaints of right leg swelling. She states that has has assisted in the history taking. He states that she has been experiencing aggressively worsening swelling of the right leg for the past 3 days. After no improvement she decided to come in for further evaluation. Patient admits to recent unwanted/undesired weight loss. Review of medical record shows that patient was seen in ED in November with complaints of postmenopausal vaginal bleeding. She is advised to follow up withDALLIN Melendez on 01/22/19 for further evaluation.Initial evaluation with CTA chest and venous doppler, show javier PE and javier DVT. Started on heparin drip,Evaluated by Electrical Maintenance Technician Assessment and plan: --Mild bilateral Peripheral PE: On heparin drip, supportive care, oxygen titrated to O2 sats more than 90% CTA chest; 1. Mild peripheral bilateral PTE, as above. 2. Right-sided cardiomegaly with evidence of right heart failure. 3. There are several noncalcified bilateral pulmonary nodules, the largest measures 6 mm. See below for follow-up recommendations. These are new since the prior. 4. Diffuse anasarca. Small right pleural effusion. --Bilateral DVT; Continue heparin drip, elevate the limb, supportive care --Family history of thromboembolism;[patient's sister had DVT/PE] hypercoag state, hypercoagulable panel Hematology following --Mild hyponatremia; monitor electrolytes --Mild pulmonary hypertension; supportive care --Right-sided heart failure with ejection fraction of 55-60%[11/15/2017] --Type 2 diabetes mellitus; Accu-Chek sliding scale coverage and ADA diet and insulin -- Postmenopausal bleeding/fibroid uterus ; [employer]ICE [employer] OFFICER evaluate the patient, further workup as outpatient --DVT Prophylaxis: Heparin Drip Monitor closely and adjust management as needed Disposition;Will switch to Eliquis tomorrow Possible discharge 1-2 days if stable Disposition: DC-01 TO HOME OR SELFCARE Time spent for discharge: 32 min Core Measure Documentation - Palliative Care Palliative Care/ Comfort Measures: Not Applicable - Core Measures Any of the following diagnoses?: DVT/PE - VTE Discharge Requirements Deep Vein Thrombosis/Pulmonary Embolism Present on Admission: Yes Has pt received <5 days of overlap therapy or INR<2.0: No (on Eliquis) Anticoagulant overlap therapy prescribed at discharge: No Contraindication No Overlap Therapy order at DC: Not Indicated (on Eliquis) Exam - Constitutional Vitals: Temp Pulse Resp BP Pulse Ox 98.5 F 111 H 18 109/59 98 01/12/19 12:19 01/12/19 12:19 01/12/19 12:19 01/12/19 12:19 01/12/19 12:19 General appearance: Present: no acute distress, well-nourished - EENT Eyes: Present: PERRL, EOM intact - Neck Neck: Present: supple, normal ROM - Respiratory Respiratory effort: normal Respiratory: bilateral: rhonchi, negative: diminished, rales, wheezing - Cardiovascular Rhythm: regular Heart Sounds: Present: S1 & S2 - Extremities Extremities: no ischemia, No edema - Abdominal General gastrointestinal: Present: soft, non-tender, non-distended, normal bowel sounds - Integumentary Integumentary: Present: clear, warm - Musculoskeletal Musculoskeletal: strength equal bilaterally - Psychiatric Psychiatric: appropriate mood/affect, cooperative - Neurologic Neurologic: CNII-XII intact, moves all extremities Plan Activity: advance as tolerated Diet: diabetic Additional Instructions: Advised 3 days work excuse on 01/13/19 ,01/14/19 and 01/15/19. See your PMD 3-4 days. If you notice any bleeding,contact MD or go to ER Follow up with: ELLE [facility] MD CRISTI [Primary Care Provider] - 3-5 Days VICENTA RIVAS MD [Staff Physician] - 7 Days JASMYNE MELENDEZ MD [Staff Physician] - 7 Days SOLIS MENDOSA MD [Staff Physician] - 7 Days Prescriptions: Apixaban [Eliquis] 5 mg PO BID #52 tablet Apixaban [Eliquis] 2 tab PO BID #26 tablet Benzonatate [Tessalon Perles] 100 mg PO Q8HR #20 capsule
--- NOTE | 2019-01-12 21:48 | Consultation ---
REFERRED BY: Dr. Torrez REASON FOR CONSULTATION: DVT, PE. HISTORY OF PRESENT ILLNESS: I saw the patient, a 68-year-old female in the medical floor. The patient has a history of diabetes. She came to the hospital because of right leg swelling. This happened over the last few days. 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 She also has a history of vaginal bleed for which she has been following [employer]. During this admission, the patient was found to have bilateral PE. She also had a 6 mm lung nodules. She had DVT. She was on heparin. The patient has family history of thromboembolism. The patient's sister had DVT, PE. I have been asked to evaluate the patient for this at this time. No headache, no visual disturbances. No ear discharge. Had leg swelling. No shortness of breath, no vomiting, no diarrhea, no dysuria. PAST MEDICAL HISTORY: As above, diabetes, postmenopausal bleeding since 11/2018. PAST SURGICAL HISTORY: Eye surgery. SOCIAL HISTORY: Lives with daughter. Nonsmoker. ALLERGIES: None. HOME MEDICATIONS: Metformin. PHYSICAL EXAMINATION: VITAL SIGNS: Temperature 98, pulse 122, respirations 18, BP 106/71. HEENT: No pallor, no icterus. NECK: No neck lymph nodes. HEART: S1, S2. LUNGS: Clear to auscultation. ABDOMEN: Soft. No guarding. NEUROLOGIC: Alert, awake, oriented. LABORATORY DATA: White cell 9.4, hemoglobin 11, MCV 91, platelets 387, potassium 4.6, creatinine 0.5, calcium 8.6. Serum iron is 19, ferritin 86, B12 1238, folate 12. RADIOLOGY: CT shows bilateral PE, right middle lobe, right lower lobe and left lung base as well, right leg DVT present, common femoral vein and the left common femoral and also chronic marginalized. ASSESSMENT: 1. Right common femoral deep venous thrombosis, left chronic deep vein thrombosis. 2. Bilateral pulmonary embolism. The patient is on anticoagulation. Her vaginal bleed, pathology may have a role. 2. Family history of deep venous thrombosis present. We will investigate the etiology as an outpatient, she is on heparin drip. She would need oral anticoagulation with either warfarin or Eliquis versus Xarelto. However, gynecology procedure is being looked into, timing of this need some coordination. 3. History of hyponatremia. 4. History of right-sided heart failure, ejection fraction 55%. 5. Diabetes. 6. Mild pulmonary hypertension. I will follow the patient during inpatient stay and then in the clinic setting. JOB# [id number] EDUARD/OBED
== END 2019-01-12 17:30 | disposition home or self-care (01) | DRG 299 ==
LOC: ED 18:23 → 4A 01-10 03:35
PROVIDERS: ADMIT Internal Medicine; ATTEND Internal Medicine
PROC: 3E0234Z Introduction of Serum, Toxoid and Vaccine into Muscle, Percutaneous Approach (ICD-10-PCS; principal; 2019-01-10)
DX: I82.411 Acute embolism and thrombosis of right femoral vein (principal); I26.99 Other pulmonary embolism without acute cor pulmonale; E87.1 Hypo-osmolality and hyponatremia; R18.8 Other ascites; I42.9 Cardiomyopathy, unspecified; D68.59 Other primary thrombophilia; I82.431 Acute embolism and thrombosis of right popliteal vein; I82.890 Acute embolism and thrombosis of other specified veins; E11.9 Type 2 diabetes mellitus without complications; R00.0 Tachycardia, unspecified; I27.20 Pulmonary hypertension, unspecified; R91.1 Solitary pulmonary nodule; I50.810 Right heart failure, unspecified; I95.9 Hypotension, unspecified; I08.1 Rheumatic disorders of both mitral and tricuspid valves; D25.9 Leiomyoma of uterus, unspecified; N95.0 Postmenopausal bleeding; D25.1 Intramural leiomyoma of uterus; D25.0 Submucous leiomyoma of uterus; I82.512 Chronic embolism and thrombosis of left femoral vein; Z23 Encounter for immunization; Z79.84 Long term (current) use of oral hypoglycemic drugs
CPT/HCPCS: 36415; 71046; 71275; 80048; 82607; 82728; 82747; 82962; 83550; 84439; 84443; 85014; 85018; 85025; 85045; 85049; 85379; 85520; 85610; 85730; 86850; 86900; 86901; 90471; 90732; 93005; 93010; 93306; 96372; 96374; G0378; G0009; J1644; J1650; J1815; J2704; J3010; J7030; Q9967

== ENCOUNTER 2019-01-15 14:32 | Emergency (ER) | payer MEDICARE ==
--- NOTE | 2019-01-15 17:34 | Event Note ---
ED Screening Note ED Screening Note: pt was evaluated in the ED earlier in the week found to have a DVT states she is having worsening swelling in the RLE states she has been taking eliquis denies CP or SOB PMHx DM no allergies to meds This initial assessment/diagnostic orders/clinical plan/treatment(s) is/are subject to change based on patients health status, clinical progression and re- assessment by fellow clinical providers in the ED. Further treatment and workup at subsequent clinical providers discretion. Patient/guardian urged not to elope from the ED as their condition may be serious if not clinically assessed and managed. Initial orders include: labs
[2019-01-15 18:09] LABS: Basophils # (Auto) 0.1 K/mm3 (0.0-0.1); Basophils % (Auto) 0.6 % (0.0-1.8); Eosinophils # (Auto) 0.1 K/mm3 (0.0-0.4); Eosinophils % (Auto) 0.5 % (0.0-4.3); Hematocrit 34.3 % (30.3-42.9); Hemoglobin 11.2 gm/dl (10.1-14.3); Lymphocytes # (Auto) 1.5 K/mm3 (1.2-5.4); Lymphocytes % (Auto) 13.4 % (13.4-35.0); Mean Corpuscular HGB Conc 33 % (30-34); Mean Corpuscular Volume 71 fl (79-97); Monocytes # (Auto) 0.6 K/mm3 (0.0-0.8); Monocytes % (Auto) 5.4 % (0.0-7.3); Platelet Count 411 K/mm3 (140-440); Red Blood Count 4.84 M/mm3 (3.65-5.03); Red Cell Distribution Width 16.6 % (13.2-15.2)
[2019-01-15 18:31] LABS: Alanine Aminotransferase 21 units/L (7-56); Albumin 3.3 g/dL (3.9-5); BUN/Creatinine Ratio 15; Blood Urea Nitrogen 9 mg/dL (7-17); Calcium 8.6 mg/dL (8.4-10.2); Hemolysis Index 2
[2019-01-15] MEDS ORDERED: LASIX PO ONE ×2 (21:47→21:49)
--- NOTE | 2019-01-15 21:51 | Emergency Department Report ---
ED Extremity Problem HPI - General Chief complaint: Extremity Injury, Lower Stated complaint: BOTH LEGS SWOLLEN Time Seen by Provider: 01/15/19 17:32 Source: patient Mode of arrival: Ambulatory Limitations: No Limitations - History of Present Illness Initial comments: Patient recently diagnosed with DVT in the right lower extremity presents to ED with worsening swelling of the right leg, pain is controlled. Has been compliant with her eloquis. No chest pain or shortness of breath. Onset/Timin -: Gradual, week(s) Location: right History of Same: Yes - Related Data Home Medications Medication Instructions Recorded Confirmed Last Taken metFORMIN [Glucophage] 1,000 mg PO BID 01/10/19 01/10/19 Unknown Calcium Carbonate [Calcium 600MG 600 mg PO DAILY 01/11/19 01/11/19 Unknown TAB] Previous Rx's Medication Instructions Recorded Last Taken Type Apixaban [Eliquis] 2 tab PO BID #26 tablet 01/12/19 Unknown Rx Apixaban [Eliquis] 5 mg PO BID #52 tablet 01/12/19 Unknown Rx Benzonatate [Tessalon Perles] 100 mg PO Q8HR #20 capsule 01/12/19 Unknown Rx Furosemide [Lasix] 20 mg PO QDAY #30 tablet 01/15/19 Unknown Rx Allergies Allergy/AdvReac Type Severity Reaction Status Date / Time No Known Allergies Allergy Verified 01/15/19 14:39 ED Review of Systems ROS: Stated complaint: BOTH LEGS SWOLLEN Other details as noted in HPI Comment: All other systems reviewed and negative Genitourinary: denies: urgency Skin: denies: rash Neurological: denies: headache ED Past Medical Hx - Past Medical History Hx Diabetes: Yes Hx Deep Vein Thrombosis: Yes - Surgical History Additional Surgical History: eye surgery - Social History Smoking Status: Never Smoker Substance Use Type: None - Medications Home Medications: Home Medications Medication Instructions Recorded Confirmed Last Taken Type metFORMIN [Glucophage] 1,000 mg PO BID 01/10/19 01/10/19 Unknown History Calcium Carbonate [Calcium 600MG 600 mg PO DAILY 01/11/19 01/11/19 Unknown His tory TAB] Apixaban [Eliquis] 2 tab PO BID #26 tablet 01/12/19 Unknown Rx Apixaban [Eliquis] 5 mg PO BID #52 tablet 01/12/19 Unknown Rx Benzonatate [Tessalon Perles] 100 mg PO Q8HR #20 capsule 01/12/19 Unknown Rx Furosemide [Lasix] 20 mg PO QDAY #30 tablet 01/15/19 Unknown Rx ED Physical Exam - General Limitations: No Limitations General appearance: alert, in no apparent distress - Head Head exam: Present: atraumatic, normocephalic - Eye Eye exam: Present: normal appearance Pupils: Present: normal accommodation - ENT ENT exam: Present: normal exam - Neck Neck exam: Present: normal inspection - Extremities Exam Extremities exam: Present: pedal edema (3 plus edema right leg, 2 plus left leg) - Skin Skin exam: Present: dry ED Course Vital Signs 01/15/19 01/15/19 01/15/19 17:32 21:47 22:04 Temperature 98.0 F 98.0 F Pulse Rate 94 H 63 Respiratory 18 18 98 H Rate Blood Pressure 124/80 Blood Pressure 110/77 [Left] O2 Sat by Pulse 97 98 100 Oximetry ED Medical Decision Making - Lab Data Result diagrams: 01/15/19 17:49 01/15/19 17:49 Critical care attestation.: If time is entered above; I have spent that time in minutes in the direct care of this critically ill patient, excluding procedure time. ED Disposition Clinical Impression: Peripheral edema, DVT of axillary vein, acute right Disposition: DC-01 TO HOME OR SELFCARE Is pt being admited?: No Does the pt Need Aspirin: No Condition: Stable Instructions: Leg Edema (ED) Prescriptions: Furosemide [Lasix] 20 mg PO QDAY #30 tablet Referrals: [facility] MD CRISTI [Primary Care Provider] - 3-5 Days MISBAH PATEL MD [Staff Physician] - 3-5 Days
[2019-01-15 22:05] VITALS: BP 110/77
== END 2019-01-15 22:15 | disposition home or self-care (01) ==
LOC: ED 14:32
DX: I82.A11 Acute embolism and thrombosis of right axillary vein (principal); R60.9 Edema, unspecified; E11.9 Type 2 diabetes mellitus without complications; Z88.8 Allergy status to other drugs, medicaments and biological substances
CPT/HCPCS: 36415; 80053; 83880; 85025

== ENCOUNTER 2019-02-09 16:37 | Inpatient (IN) | payer MEDICARE ==
[2019-02-09 18:26] LABS: Hematocrit 36.4 % (30.3-42.9); Hemoglobin 11.6 gm/dl (10.1-14.3); Mean Corpuscular HGB Conc 32 % (30-34); Platelet Count 481 K/mm3 (140-440); Red Blood Count 5.39 M/mm3 (3.65-5.03); Red Cell Distribution Width 17.6 % (13.2-15.2)
[2019-02-09 18:47] LABS: Alanine Aminotransferase 10 units/L (7-56); Albumin 2.9 g/dL (3.9-5); BUN/Creatinine Ratio 67; Blood Urea Nitrogen 20 mg/dL (7-17); Calcium 8.5 mg/dL (8.4-10.2); Hemolysis Index 6
[2019-02-09 18:48] LABS: INR 2.04 (0.87-1.13); Mean Corpuscular Volume 67 fl (79-97)
[2019-02-09 18:49] LABS: Partial Thromboplastin Time 36.5 Sec. (24.2-36.6)
--- NOTE | 2019-02-09 18:57 | XRay Report ---
CHEST 1 VIEW INDICATION / CLINICAL INFORMATION: sob. COMPARISON: 01/10/2019 FINDINGS: SUPPORT DEVICES: None. HEART / MEDIASTINUM: No significant abnormality. LUNGS / PLEURA: Blunting of the left lateral costophrenic angle has developed since the comparison st ud and may represent small pleural effusion. No pneumothorax. ADDITIONAL FINDINGS: No significant additional findings. IMPRESSION: 1. New opacity in the left lower hemithorax likely representing small pleural effusion Signer Name: Carlos Pathak MD Signed: 02/09/2019 6:53 PM Workstation Name: [id number]
[2019-02-09] MEDS ORDERED: LASIX IV ONE (19:21)
--- NOTE | 2019-02-09 19:39 | Emergency Department Report ---
ED General Adult HPI - General Chief complaint: Dyspnea/Respdistress Stated complaint: VOMITING/FATIGUE/DIZZY/ABD PAIN Time Seen by Provider: 02/09/19 17:39 Source: patient, family Mode of arrival: Wheelchair Limitations: Physical Limitation - History of Present Illness Initial comments: The patient presents to the emergency department with a chief complaint of swelling. She states that she is retaining fluid in the lower extremities and abdomen. Patient has a history of DVTs and pulmonary emboli and is currently taking eliquis. Patient also endorses a history congestive heart failure and states she takes a water pill daily. Patient states her shortness of breath is worse with walking or lying flat -: Gradual Location: chest, abdomen Severity scale (0 -10): 0 Consistency: constant Improves with: rest Worsens with: movement Associated Symptoms: denies other symptoms Treatments Prior to Arrival: none - Related Data Home Medications Medication Instructions Recorded Confirmed Last Taken metFORMIN [Glucophage] 500 mg PO BID 01/10/19 02/09/19 Unknown Furosemide [Lasix] 20 mg PO BID 02/09/19 02/09/19 Unknown Previous Rx's Medication Instructions Recorded Last Taken Type Apixaban [Eliquis] 2 tab PO BID #26 tablet 01/12/19 Unknown Rx Allergies Allergy/AdvReac Type Severity Reaction Status Date / Time No Known Allergies Allergy Verified 01/15/19 14:39 ED Review of Systems ROS: Stated complaint: VOMITING/FATIGUE/DIZZY/ABD PAIN Other details as noted in HPI Constitutional: denies: chills, fever Eyes: denies: eye pain, eye discharge, vision change ENT: denies: ear pain, throat pain Respiratory: shortness of breath. denies: cough, wheezing Cardiovascular: denies: chest pain, palpitations Endocrine: no symptoms reported Gastrointestinal: denies: abdominal pain, nausea, diarrhea Genitourinary: denies: urgency, dysuria, discharge Musculoskeletal: denies: back pain, joint swelling, arthralgia Skin: denies: rash, lesions Neurological: denies: headache, weakness, paresthesias Psychiatric: denies: anxiety, depression Hematological/Lymphatic: denies: easy bleeding, easy bruising ED Past Medical Hx - Past Medical History Previous Medical History?: Yes Hx Diabetes: Yes Hx Deep Vein Thrombosis: Yes - Surgical History Past Surgical History?: Yes Additional Surgical History: eye surgery - Social History Smoking Status: Unknown if ever smoked - Medications Home Medications: Home Medications Medication Instructions Recorded Confirmed Last Taken Type metFORMIN [Glucophage] 500 mg PO BID 01/10/19 02/09/19 Unknown History Apixaban [Eliquis] 2 tab PO BID #26 tablet 01/12/19 02/09/19 Unknown Rx Furosemide [Lasix] 20 mg PO BID 02/09/19 02/09/19 Unknown History ED Physical Exam - General Limitations: Physical Limitation General appearance: alert, in no apparent distress - Head Head exam: Present: atraumatic, normocephalic - Eye Eye exam: Present: normal appearance - ENT ENT exam: Present: mucous membranes moist - Neck Neck exam: Present: normal inspection - Respiratory Respiratory exam: Present: normal lung sounds bilaterally, rales. Absent: respiratory distress - Cardiovascular Cardiovascular Exam: Present: normal rhythm, tachycardia. Absent: systolic murmur, diastolic murmur, rubs, gallop - GI/Abdominal GI/Abdominal exam: Present: soft, distended (but soft with mild pitting edema), normal bowel sounds - Extremities Exam Extremities exam: Present: other (bilateral lower extremity pitting edema on exam) - Back Exam Back exam: Present: normal inspection - Neurological Exam Neurological exam: Present: alert, oriented X3, CN II-XII intact. Absent: motor sensory deficit - Psychiatric Psychiatric exam: Present: normal affect, normal mood - Skin Skin exam: Present: warm, dry, intact, normal color. Absent: rash ED Course Vital Signs 02/09/19 02/09/19 02/09/19 17:30 18:00 18:30 Pulse Rate 116 H 120 H 123 H Respiratory 18 24 32 H Rate Blood Pressure 107/71 110/71 110/71 O2 Sat by Pulse 97 95 98 Oximetry ED Medical Decision Making - Lab Data Result diagrams: 02/09/19 18:06 02/09/19 18:06 Lab Results 02/09/19 02/09/19 02/09/19 Range/Units 18:06 18:06 18:06 WBC 20.4 H (4.5-11.0) K/mm3 RBC 5.39 H (3.65-5.03) M/mm3 Hgb 11.6 (10.1-14.3) gm/dl Hct 36.4 (30.3-42.9) % MCV 67 L (79-97) fl MCH 22 L (28-32) pg MCHC 32 (30-34) % RDW 17.6 H (13.2-15.2) % Plt Count 481 H (140-440) K/mm3 Seg Neutrophils % Video Player Mechanic PT (12.2-14.9) Sec. INR (0.87-1.13) APTT (24.2-36.6) Sec. Sodium 123 L (137-145) mmol/L Potassium 4.3 (3.6-5.0) mmol/L Chloride 87.4 L (98-107) mmol/L Carbon Dioxide 22 (22-30) mmol/L Anion Gap 18 mmol/L BUN 20 H (7-17) mg/dL Creatinine 0.3 L (0.7-1.2) mg/dL Estimated GFR > 60 ml/min BUN/Creatinine Ratio 67 % Glucose 179 H (65-100) mg/dL Calcium 8.5 (8.4-10.2) mg/dL Total Bilirubin 0.30 (0.1-1.2) mg/dL AST 18 (5-40) units/L ALT 10 (7-56) units/L Alkaline Phosphatase 61 (35-129) units/L Troponin T < 0.010 (0.00-0.029) ng/mL NT-Pro-B Natriuret Pep 7069 H (0-900) pg/mL Total Protein 6.8 (6.3-8.2) g/dL Albumin 2.9 L (3.9-5) g/dL Albumin/Globulin Ratio 0.7 % // Range/Units 18:06 WBC (4.5-11.0) K/mm3 RBC (3.65-5.03) M/mm3 Hgb (10.1-14.3) gm/dl Hct (30.3-42.9) % MCV (79-97) fl MCH (28-32) pg MCHC (30-34) % RDW (13.2-15.2) % Plt Count (140-440) K/mm3 Seg Neutrophils % PT 22.6 H (12.2-14.9) Sec. INR 2.04 H (0.87-1.13) APTT 36.5 (24.2-36.6) Sec. Sodium (137-145) mmol/L Potassium (3.6-5.0) mmol/L Chloride (98-107) mmol/L Carbon Dioxide (22-30) mmol/L Anion Gap mmol/L BUN (7-17) mg/dL Creatinine (0.7-1.2) mg/dL Estimated GFR ml/min BUN/Creatinine Ratio % Glucose (65-100) mg/dL Calcium (8.4-10.2) mg/dL Total Bilirubin (0.1-1.2) mg/dL AST (5-40) units/L ALT (7-56) units/L Alkaline Phosphatase (35-129) units/L Troponin T (0.00-0.029) ng/mL NT-Pro-B Natriuret Pep (0-900) pg/mL Total Protein (6.3-8.2) g/dL Albumin (3.9-5) g/dL Albumin/Globulin Ratio % - EKG Data -: EKG Interpreted by Me EKG shows normal: sinus rhythm Rate: tachycardia - Radiology Data Radiology results: report reviewed - Medical Decision Making Patient was given IV Lasix He should cover her with IV antibiotics for the leukocytosis Discussed results with patient Critical Care Time: Yes Critical care time in (mins) excluding proc time.: 45 Critical care attestation.: If time is entered above; I have spent that time in minutes in the direct care of this critically ill patient, excluding procedure time. ED Disposition Clinical Impression: CHF (congestive heart failure), Leukocytosis Disposition: 09 OP ADMIT IP TO THIS HOSP Is pt being admited?: Yes Does the pt Need Aspirin: No Condition: Fair Referrals: JIM LERNER MD [Primary Care Provider] - 3-5 Days
--- NOTE | 2019-02-09 20:05 | History and Physical Report ---
History of Present Illness Chief complaint: I feel crappy, and i'm swollen History of present illness: 68 YO Female with DM, DVT on Therapeutic Anticoagulation with Eliquis, CHF presents to ED for evaluation. Pt states that she has experienced generalized weakness, decreased exercise tolerance, shortness of breath, as well as bilateral lower extremity swelling over the past 4-5 days. Pt acknowledges Orthopnea/PND, Dypsnea on exertion. Pt transported to [facility] via private vehicle. Pt seen and evaluated in ED and found to have CHF Decompensation, as well as LLL Pneumonia. Pt denies fever, chills, CP, Palpitations, NVD, Trauma, Skin rash, BRBPR, unintentional weight loss, night sweats, or recent ill contacts. Pt adm itted to telemetry and initiated on CHF protocol. Cardiology consulted in ED. Pt also initiated on Pneumonia protocol. Prior admission on 01/10/19 reviewed. All medication listed at time of admission reconciled. Past History Past Medical History: diabetes, DVT, heart failure Past Surgical History: Other (Eye surgery) Social history: single. denies: smoking, alcohol abuse, prescription drug abuse, IV drug use Family history: hypertension Medications and Allergies Allergies Allergy/AdvReac Type Severity Reaction Status Date / Time No Known Allergies Allergy Verified 01/15/19 14:39 Home Medications Medication Instructions Recorded Confirmed Last Taken Type metFORMIN [Glucophage] 500 mg PO BID 01/10/19 02/09/19 Unknown History Apixaban [Eliquis] 2 tab PO BID #26 tablet 01/12/19 02/09/19 Unknown Rx Furosemide [Lasix] 20 mg PO BID 02/09/19 02/09/19 Unknown History Active Meds: Active Medications Ceftriaxone Sodium (Rocephin/Ns 2 Gm/100 Ml) 2 gm in 100 mls @ 200 mls/hr IV Q24HR DREW; Protocol Azithromycin 500 mg/ Sodium (Chloride) 250 mls @ 250 mls/hr IV Q24H DREW; Protocol Review of Systems Constitutional: weight gain, no weight loss, no fever, no chills, no sweats Ears, nose, mouth and throat: no ear pain, no ear discharge, no tinnitis, no decreased hearing, no nose pain, no nasal congestion Breasts: no change in shape, no swelling, no mass Cardiovascular: orthopnea, edema, shortness of breath, dyspnea on exertion, paroxysmal nocturnal dyspnea, leg edema, decreased exercise tolerance, no chest pain, no palpitations, no rapid/irregular heart beat, no syncope, no lightheadedness Respiratory: no cough, no cough with sputum, no excessive sputum Gastrointestinal: no nausea, no vomiting, no diarrhea, no constipation Rectal: no pain, no incontinence, no bleeding Musculoskeletal: no neck stiffness, no neck pain, no shooting arm pain, no arm numbness/tingling, no shooting leg pain Integumentary: no rash, no pruritis, no redness, no sores, no wounds Neurological: no transient paralysis, no paralysis, no parathesias, no numbness, no tingling, no seizures Psychiatric: no anxiety, no memory loss, no sleep disturbances, no insomnia, no hypersomnia, no change in appetite, no change in libido, no suicidal ideation Endocrine: no cold intolerance, no heat intolerance, no polyphagia, no polydipsia, no polyuria, no nocturia Hematologic/Lymphatic: no easy bruising, no easy bleeding, no lymphadenopathy, no lymphedema Allergic/Immunologic: no urticaria, no allergic rhinitis, no wheezing, no persistent infections, no anaphylaxis, no angioedema Exam - Constitutional Vitals: Temp Pulse Resp BP Pulse Ox 123 H 32 H 110/71 98 02/09/19 18:30 02/09/19 18:30 02/09/19 18:30 02/09/19 18:30 General appearance: Present: mild distress - EENT Eyes: Present: PERRL ENT: hearing intact, clear oral mucosa - Neck Neck: Present: supple, normal ROM - Respiratory Respiratory: bilateral: diminished, rhonchi - Cardiovascular Heart Sounds: Present: S1 & S2. Absent: rub, click - Extremities Extremities: pulses symmetrical Extremity abnormal: edema Peripheral Pulses: within normal limits - Abdominal General gastrointestinal: Present: soft, non-tender, non-distended, normal bowel sounds Female genitourinary: Present: normal - Integumentary Integumentary: Present: clear, warm, dry - Musculoskeletal Musculoskeletal: generalized weakness - Psychiatric Psychiatric: appropriate mood/affect, intact judgment & insight - Neurologic Neurologic: CNII-XII intact, moves all extremities Results - Labs CBC & Chem 7: 02/09/19 18:06 02/09/19 18:06 Labs: Abnormal lab results 08/0602/09/19 02/09/19 Range/Units 18:06 18:06 18:06 WBC 20.4 H (4.5-11.0) K/mm3 RBC 5.39 H (3.65-5.03) M/mm3 MCV 67 L (79-97) fl MCH 22 L (28-32) pg RDW 17.6 H (13.2-15.2) % Plt Count 481 H (140-440) K/mm3 PT 22.6 H (12.2-14.9) Sec. INR 2.04 H (0.87-1.13) Sodium 123 L (137-145) mmol/L Chloride 87.4 L (98-107) mmol/L BUN 20 H (7-17) mg/dL Creatinine 0.3 L (0.7-1.2) mg/dL Glucose 179 H (65-100) mg/dL NT-Pro-B Natriuret Pep 7069 H (0-900) pg/mL Albumin 2.9 L (3.9-5) g/dL Assessment and Plan - Patient Problems (1) Pneumonia Current Visit: Yes Status: Acute Qualifiers: Laterality: left Lung location: lower lobe of lung Plan to address problem: Pneumonia protocol: IV antibiotic therapy, chest x ray, nebulizer therapy, supplemental oxygen, CBC, CMP, blood cultures, NIPPV as clinically indicated. (2) CHF (congestive heart failure) Current Visit: Yes Status: Acute Qualifiers: Heart failure type: systolic Plan to address problem: Admit to telemetry, Echo reviewed, cardiology consulted, diuresis, afterload reduction, strict I/O, monitor uop q shift, chest x ray, thyroid panel, magnesium level. (3) SIRS (systemic inflammatory response syndrome) Current Visit: Yes Status: Acute Plan to address problem: IV antibiotic therapy, CBC, CMP, Chest x ray, urinalysis, blood cultures. (4) Hyponatremia Current Visit: No Status: Acute Plan to address problem: repeat serum sodium, supportive care. treat pneumonia, fluid restriction, repeat bmp in am. (5) Diabetes Current Visit: Yes Status: Acute Plan to address problem: ADA diet, insulin ,accu check, hypoglycemia protocol. (6) History of DVT (deep vein thrombosis) Current Visit: Yes Status: Acute Plan to address problem: Therapeutic anticoagulation, supportive care. (7) DVT prophylaxis Current Visit: No Status: Acute Plan to address problem: SCD to BLE while in bed, therapeutic anticoagulation
[2019-02-09] MEDS ORDERED: ZOFRAN IV PRN (20:06)
[2019-02-09] MEDS ORDERED: TYLENOL PO PRN (20:06)
[2019-02-09] MEDS ORDERED: D50W (25GM) Syringe IV PRN (20:09)
[2019-02-09] MEDS: ROCEPHIN/NS 2 GM/100 ML 2 GM/100 ML BAG IV SCH (20:24)
[2019-02-09 20:36] LABS: Basophils % (Manual) 0 % (0.0-1.8); Eosinophils % (Manual) 0 % (0.0-4.3); Total Cells Counted 100
[2019-02-09 20:38] LABS: Platelet Estimate Consistent w Auto; Target Cells Few; Tear Drop Cells Few
[2019-02-09] MEDS ORDERED: ELIQUIS PO SCH (22:00)
[2019-02-09] MEDS: SODIUM CHLORIDE FLUSH SYRINGE 10 ML IV SCH (23:42)
[2019-02-09] MEDS: ZITHROMAX 500 MG in NACL 0.9% 250ML 250 ML IV SCH (23:56)
[2019-02-09] MEDS: HumaLOG SUB-Q SCH (23:57)
[2019-02-10 00:16] LABS: Free T4 (Free Thyroxine) 0.89 ng/dL (0.76-1.46)
[2019-02-10] MEDS: LASIX IV SCH ×2 (05:26→22:57)
[2019-02-10] MEDS: HumaLOG SUB-Q SCH ×4 (08:00→22:02)
--- NOTE | 2019-02-10 10:37 | Consultation ---
<ESTEPHANIA ESCAMILLA - Last Filed: 02/10/19 10:49> History of Present Illness Consult date: 02/10/19 Consult reason: congestive heart failure History of present illness: This is a 68-year old woman who presents with shortness of breath, bilateral lower extremity swelling, admitted for further evaluation. Of note, patient was admitted to this hospital a month ago with similar complaints. At that time she was found to have an acute DVT with pulmonary embolism. Echocardiogram reported right heart enlargement consistent with a diagnosis of acute pulmonary embolism. The patient is on Eliquis for anticoagulation therapy and reports compliance. A cardiac consultation has been requested for CHF evaluation. Initial labs shows an elevated WBC with severe hyponatremia, sodium of 123. She also has an elevted BNP. Chest x-ray reports a small left pleural effusion, no evidence of interstitial edema. An ECG is sinus tachycardia with low voltage. Past History Past Medical History: diabetes, DVT, heart failure Past Surgical History: Other (Eye surgery) Social history: single. denies: smoking, alcohol abuse, prescription drug abuse, IV drug use Family history: hypertension Medications and Allergies Allergies Allergy/AdvReac Type Severity Reaction Status Date / Time No Known Allergies Allergy Verified 01/15/19 14:39 Home Medications Medication Instructions Recorded Confirmed Last Taken Type metFORMIN [Glucophage] 500 mg PO BID 01/10/19 02/09/19 Unknown History Apixaban [Eliquis] 2 tab PO BID #26 tablet 01/12/19 02/09/19 Unknown Rx Furosemide [Lasix] 20 mg PO BID 02/09/19 02/09/19 Unknown History Active Meds: Active Medications Acetaminophen (Tylenol) 650 mg PO Q4H PRN PRN Reason: Pain MILD(1-3)/Fever >100.5/KEMP Apixaban (Eliquis) 5 mg PO BID DREW; Protocol Dextrose (D50w (25gm) Syringe) 50 ml IV PRN PRN PRN Reason: Hypoglycemia Furosemide (Lasix) 40 mg IV BID@0600,1800 DREW Last Admin: 02/10/19 05:26 Dose: Not Given Documented by: Ceftriaxone Sodium (Rocephin/Ns 2 Gm/100 Ml) 2 gm in 100 mls @ 200 mls/hr IV Q2 4HR DREW; Protocol Last Admin: 02/09/19 20:24 Dose: 200 mls/hr Documented by: Azithromycin 500 mg/ Sodium (Chloride) 250 mls @ 250 mls/hr IV Q24H [facility]; Protocol Last Admin: 02/09/19 23:56 Dose: 250 mls/hr Documented by: Insulin Human Lispro (Humalog) 0 unit SUB-Q ACHS [facility]; Protocol Last Admin: 02/09/19 23:57 Dose: 2 unit Documented by: Ondansetron HCl (Zofran) 4 mg IV Q8H PRN PRN Reason: Nausea And Vomiting Sodium Chloride (Sodium Chloride Flush Syringe 10 Ml) 10 ml IV BID [facility] Last Admin: 02/09/19 23:42 Dose: 10 ml Documented by: Sodium Chloride (Sodium Chloride Flush Syringe 10 Ml) 10 ml IV PRN PRN PRN Reason: LINE FLUSH Physical Examination Vital Signs Pulse Resp BP Pulse Ox 116 H 18 107/71 97 02/09/19 17:30 02/09/19 17:30 02/09/19 17:30 02/09/19 17:30 General appearance: no acute distress HEENT: Positive: PERRL Neck: Positive: trachea midline Cardiac: Positive: Reg Rate and Rhythm Lungs: Positive: Decreased Breath Sounds Neuro: Positive: Grossly Intact Extremities: Present: edema (mild) Results 02/09/19 18:06 02/09/19 18:06 Cardiac Enzymes 02/09/19 Range/Units 18:06 AST 18 (5-40) units/L Coagulation 02/09/19 02/09/19 Range/Units 18:06 23:15 PT 22.6 H (12.2-14.9) Sec. INR 2.04 H (0.87-1.13) APTT 36.5 40.9 H (24.2-36.6) Sec. CBC 02/09/19 Range/Units 18:06 WBC 20.4 H (4.5-11.0) K/mm3 RBC 5.39 H (3.65-5.03) M/mm3 Hgb 11.6 (10.1-14.3) gm/dl Hct 36.4 (30.3-42.9) % Plt Count 481 H (140-440) K/mm3 Comprehensive Metabolic Panel 02/09/19 Range/Units 18:06 Sodium 123 L (137-145) mmol/L Potassium 4.3 (3.6-5.0) mmol/L Chloride 87.4 L (98-107) mmol/L Carbon Dioxide 22 (22-30) mmol/L BUN 20 H (7-17) mg/dL Creatinine 0.3 L (0.7-1.2) mg/dL Glucose 179 H (65-100) mg/dL Calcium 8.5 (8.4-10.2) mg/dL AST 18 (5-40) units/L ALT 10 (7-56) units/L Alkaline Phosphatase 61 (35-129) units/L Total Protein 6.8 (6.3-8.2) g/dL Albumin 2.9 L (3.9-5) g/dL Assessment and Plan Shortness of breath Leukocytosis Hyponatremia Hx of PE/DVT on eliquis as an outpatient. Diabetes An echocardiogram done 01/10/2019 reports dilated right heart chambers with severe pulmonary hypertension, RVSP 65-70 mmHg. Normal left ventricular systolic function, EF 60-65%. We will obtain a limited echocardiogram for LVEF reassessment. <BOWEN STAFFORD - Last Filed: 02/10/19 13:02> Medications and Allergies Active Meds: Active Medications Acetaminophen (Tylenol) 650 mg PO Q4H PRN PRN Reason: Pain MILD(1-3)/Fever >100.5/KEMP Last Admin: 02/10/19 11:10 Dose: 650 mg Documented by: Apixaban (Eliquis) 5 mg PO BID [facility]; Protocol Last Admin: 02/10/19 11:10 Dose: 5 mg Documented by: Dextrose (D50w (25gm) Syringe) 50 ml IV PRN PRN PRN Reason: Hypoglycemia Furosemide (Lasix) 40 mg IV BID@0600,1800 DREW Last Admin: 02/10/19 05:26 Dose: Not Given Documented by: Ceftriaxone Sodium (Rocephin/Ns 2 Gm/100 Ml) 2 gm in 100 mls @ 200 mls/hr IV Q24HR DREW; Protocol Last Admin: 02/09/19 20:24 Dose: 200 mls/hr Documented by: Azithromycin 500 mg/ Sodium (Chloride) 250 mls @ 250 mls/hr IV Q24H DREW; Protocol Last Admin: 02/09/19 23:56 Dose: 250 mls/hr Documented by: Insulin Human Lispro (Humalog) 0 unit SUB-Q ACHS DREW; Protocol Last Admin: 02/10/19 08:00 Dose: Not Given Documented by: Ondansetron HCl (Zofran) 4 mg IV Q8H PRN PRN Reason: Nausea And Vomiting Sodium Chloride (Sodium Chloride Flush Syringe 10 Ml) 10 ml IV BID [facility] Last Admin: 02/10/19 11:12 Dose: 10 ml Documented by: Sodium Chloride (Sodium Chloride Flush Syringe 10 Ml) 10 ml IV PRN PRN PRN Reason: LINE FLUSH Physical Examination Vital Signs Pulse Resp BP Pulse Ox 116 H 18 107/71 97 02/09/19 17:30 02/09/19 17:30 02/09/19 17:30 02/09/19 17:30 Results 02/09/19 18:06 02/09/19 18:06 Cardiac Enzymes 02/09/19 Range/Units 18:06 AST 18 (5-40) units/L Coagulation 02/09/19 02/09/19 Range/Units 18:06 23:15 PT 22.6 H (12.2-14.9) Sec. INR 2.04 H (0.87-1.13) APTT 36.5 40.9 H (24.2-36.6) Sec. CBC 02/09/19 Range/Units 18:06 WBC 20.4 H (4.5-11.0) K/mm3 RBC 5.39 H (3.65-5.03) M/mm3 Hgb 11.6 (10.1-14.3) gm/dl Hct 36.4 (30.3-42.9) % Plt Count 481 H (140-440) K/mm3 Comprehensive Metabolic Panel 02/09/19 Range/Units 18:06 Sodium 123 L (137-145) mmol/L Potassium 4.3 (3.6-5.0) mmol/L Chloride 87.4 L (98-107) mmol/L Carbon Dioxide 22 (22-30) mmol/L BUN 20 H (7-17) mg/dL Creatinine 0.3 L (0.7-1.2) mg/dL Glucose 179 H (65-100) mg/dL Calcium 8.5 (8.4-10.2) mg/dL AST 18 (5-40) units/L ALT 10 (7-56) units/L Alkaline Phosphatase 61 (35-129) units/L Total Protein 6.8 (6.3-8.2) g/dL Albumin 2.9 L (3.9-5) g/dL Assessment and Plan Seen and evaluated this patient and agree with the assessment and plan. Mrs. Zhang was recently seen and evaluated in the hospital for shortness of breath and was diagnosed with presence of PE as well as DVT. Patient was subsequently started on aliquots as an outpatient. The patient returns to the hospital today with worsening shortness of breath and bilateral lower extremity edema. Patient's echocardiogram done in January 2019 shows severely dilated right ventricular chamber, severe pulmonary hypertension, and a normal left ventricular ejection fraction. The patient's current symptoms are likely secondary to right-sided heart failure and severe pulmonary hypertension the setting of pulmonary embolism; however, we will recheck a limited echocardiogram for reevaluation of LV function in case patient has now developed left sided heart failure as well.
[2019-02-10] MEDS: ELIQUIS PO SCH ×2 (11:10→22:01)
[2019-02-10] MEDS: SODIUM CHLORIDE FLUSH SYRINGE 10 ML IV SCH ×2 (11:12→22:02)
--- NOTE | 2019-02-10 13:16 | Progress Note ---
Assessment and Plan Assessment and plan: LLL pneumonia. Cont. abx. F/U serial CXR Parapneumonic effusion. Continue IV antibodies and follow chest x-ray Sepsis. Etiology secondary to above. Continue antibiotic and follow-up lactic acid level and blood cultures. Hyponatremia. 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 Follow BMP. Diabetes mellitus type 2. Continue Accu-Cheks and sliding scale insulin. History of DVT. Continue anticoagulation. History Interval history: No new issues Hospitalist Physical - Constitutional Vitals: Temp Pulse Resp BP Pulse Ox 98.2 F 118 H 18 95/65 93 02/10/19 11:50 02/10/19 11:50 02/10/19 11:50 02/10/19 11:50 02/10/19 11:50 General appearance: Present: no acute distress - EENT Eyes: Present: PERRL, EOM intact ENT: hearing intact, clear oral mucosa, dentition normal - Neck Neck: Present: supple, normal ROM - Respiratory Respiratory effort: normal Respiratory: bilateral: CTA - Cardiovascular Rhythm: regular Heart Sounds: Present: S1 & S2. Absent: gallop, rub - Extremities Extremities: no ischemia, No edema, Full ROM - Abdominal General gastrointestinal: soft, non-tender, non-distended, normal bowel sounds - Integumentary Integumentary: Present: clear, warm, dry - Neurologic Neurologic: CNII-XII intact, moves all extremities Results - Labs CBC & Chem 7: 02/09/19 18:06 02/09/19 18:06 Labs: Laboratory Last Values WBC 20.4 K/mm3 (4.5-11.0) H 02/09/19 18:06 RBC 5.39 M/mm3 (3.65-5.03) H 02/09/19 18:06 Hgb 11.6 gm/dl (10.1-14.3) 02/09/19 18:06 Hct 36.4 % (30.3-42.9) 02/09/19 18:06 MCV 67 fl (79-97) L 02/09/19 18:06 MCH 22 pg (28-32) L 02/09/19 18:06 MCHC 32 % (30-34) 02/09/19 18:06 RDW 17.6 % (13.2-15.2) H 02/09/19 18:06 Plt Count 481 K/mm3 (140-440) H 02/09/19 18:06 Add Manual Diff Complete 02/09/19 18:06 Total Counted 100 02/09/19 18:06 Seg Neutrophils % Real Estate Operations Manager 02/09/19 18:06 Seg Neuts % (Manual) 94.0 % (40.0-70.0) H 02/09/19 18:06 0 % 02/09/19 18:06 5.0 % (13.4-35.0) L 02/09/19 18:06 Reactive Lymphs % (Man) 0 % 02/09/19 18:06 1.0 % (0.0-7.3) 02/09/19 18:06 0 % (0.0-4.3) 02/09/19 18:06 0 % (0.0-1.8) 02/09/19 18:06 0 % 02/09/19 18:06 0 % 02/09/19 18:06 0 % 02/09/19 18:06 0 % 02/09/19 18:06 Nucleated RBC % Not Reportable 02/09/19 18:06 Seg Neutrophils # Man 19.2 K/mm3 (1.8-7.7) H 02/09/19 18:06 Band Neutrophils # 0.0 K/mm3 02/09/19 18:06 1.0 K/mm3 (1.2-5.4) L 02/09/19 18:06 Abs React Lymphs (Man) 0.0 K/mm3 02/09/19 18:06 0.2 K/mm3 (0.0-0.8) 02/09/19 18:06 0.0 K/mm3 (0.0-0.4) 02/09/19 18:06 0.0 K/mm3 (0.0-0.1) 02/09/19 18:06 0.0 K/mm3 02/09/19 18:06 0.0 K/mm3 02/09/19 18:06 0.0 K/mm3 02/09/19 18:06 Blast Cells # 0.0 K/mm3 02/09/19 18:06 WBC Morphology Not Reportable 02/09/19 18:06 Hypersegmented Neuts Not Reportable 02/09/19 18:06 Hyposegmented Neuts Not Reportable 02/09/19 18:06 Hypogranular Neuts Not Reportable 02/09/19 18:06 Not Reportable 02/09/19 18:06 Not Reportable 02/09/19 18:06 Not Reportable 02/09/19 18:06 Not Reportable 02/09/19 18:06 Not Reportable 02/09/19 18:06 Not Reportable 02/09/19 18:06 Consistent w auto 02/09/19 18:06 Not Reportable 02/09/19 18:06 Plt Clumps, EDTA Not Reportable 02/09/19 18:06 Not Reportable 02/09/19 18:06 Not Reportable 02/09/19 18:06 Not Reportable 02/09/19 18:06 Plt Morphology Comment Not Reportable 02/09/19 18:06 RBC Morphology Not Reportable 02/09/19 18:06 Dimorphic RBCs Not Reportable 02/09/19 18:06 Not Reportable 02/09/19 18:06 Not Reportable 02/09/19 18:06 Not Reportable 02/09/19 18:06 Not Reportable 02/09/19 18:06 1+ 02/09/19 18:06 Not Reportable 02/09/19 18:06 Not Reportable 02/09/19 18:06 Not Reportable 02/09/19 18:06 Not Reportable 02/09/19 18:06 Few 02/09/19 18:06 Few 02/09/19 18:06 Not Reportable 02/09/19 18:06 Not Reportable 02/09/19 18:06 Not Reportable 02/09/19 18:06 Not Reportable 02/09/19 18:06 Not Reportable 02/09/19 18:06 Not Reportable 02/09/19 18:06 Not Reportable 02/09/19 18:06 Not Reportable 02/09/19 18:06 Acanthocytes (Spur) Not Reportable 02/09/19 18:06 Rouleaux Not Reportable 02/09/19 18:06 Not Reportable 02/09/19 18:06 Not Reportable 02/09/19 18:06 Not Reportable 02/09/19 18:06 Not Reportable 02/09/19 18:06 Hem Pathologist Commnt No 02/09/19 18:06 PT 22.6 Sec. (12.2-14.9) H 02/09/19 18:06 INR 2.04 (0.87-1.13) H 02/09/19 18:06 APTT 40.9 Sec. (24.2-36.6) H 02/09/19 23:15 Sodium 123 mmol/L (137-145) L 02/09/19 18:06 Potassium 4.3 mmol/L (3.6-5.0) 02/09/19 18:06 Chloride 87.4 mmol/L (98-107) L 02/09/19 18:06 Carbon Dioxide 22 mmol/L (22-30) 02/09/19 18:06 18 mmol/L 02/09/19 18:06 BUN 20 mg/dL (7-17) H 02/09/19 18:06 0.3 mg/dL (0.7-1.2) L 02/09/19 18:06 Estimated GFR > 60 ml/min 02/09/19 18:06 67 % 02/09/19 18:06 Glucose 179 mg/dL (65-100) H 02/09/19 18:06 POC Glucose 171 (70-105) H 02/10/19 11:56 Lactic Acid 1.70 mmol/L (0.7-2.0) 02/10/19 03:43 Calcium 8.5 mg/dL (8.4-10.2) 02/09/19 18:06 Magnesium 1.70 mg/dL (1.7-2.3) 02/09/19 23:15 0.30 mg/dL (0.1-1.2) 02/09/19 18:06 AST 18 units/L (5-40) 02/09/19 18:06 ALT 10 units/L (7-56) 02/09/19 18:06 61 units/L (35-129) 02/09/19 18:06 < 0.010 ng/mL (0.00-0.029) 02/09/19 23:15 NT-Pro-B Natriuret Pep 7069 pg/mL (0-900) H 02/09/19 18:06 6.8 g/dL (6.3-8.2) 02/09/19 18:06 2.9 g/dL (3.9-5) L 02/09/19 18:06 0.7 % 02/09/19 18:06 TSH 1.890 mlU/mL (0.270-4.200) 02/09/19 23:15 Free T4 0.89 ng/dL (0.76-1.46) 02/09/19 23:15 Active Medications - Current Medications Current Medications: Generic Name Dose Route Start Last Admin Trade Name Freq PRN Reason Stop Dose Admin Acetaminophen 650 mg 02/09/19 20:06 02/10/19 11:10 Tylenol PO 650 mg Q4H PRN Administration Pain MILD(1-3)/Fever >100.5/KEMP Apixaban 5 mg 02/10/19 10:00 02/10/19 11:10 Eliquis PO 5 mg BID [facility] Administration Protocol Dextrose 50 ml 02/09/19 20:09 D50w (25gm) Syringe IV PRN PRN Hypoglycemia Furosemide 40 mg 02/10/19 06:00 02/10/19 05:26 Lasix IV Not Given BID@0600,1800 [facility] Ceftriaxone Sodium 2 gm in 100 mls @ 200 mls/hr 02/09/19 20:00 02/09/19 20:24 Rocephin/Ns 2 Gm/100 Ml IV 200 mls/hr Q24HR DREW Administration Protocol Azithromycin 500 mg/ Sodium 250 mls @ 250 mls/hr 02/09/19 21:00 02/09/19 23: 56 Chloride IV 250 mls/hr Q24H DREW Administration Protocol Insulin Human Lispro 0 unit 02/09/19 22:00 02/10/19 08:00 Humalog SUB-Q Not Given ACHS [facility] Protocol Ondansetron HCl 4 mg 02/09/19 20:06 Zofran IV Q8H PRN Nausea And Vomiting Sodium Chloride 10 ml 02/09/19 22:00 02/10/19 11:12 Sodium Chloride Flush Syringe 10 Ml IV 10 ml BID DREW Administration Sodium Chloride 10 ml 02/09/19 20:06 Sodium Chloride Flush Syringe 10 Ml IV PRN PRN LINE FLUSH
[2019-02-10] MEDS: ROCEPHIN/NS 2 GM/100 ML 2 GM/100 ML BAG IV SCH (14:26)
[2019-02-10] MEDS: ZITHROMAX 500 MG in NACL 0.9% 250ML 250 ML IV SCH (22:01)
[2019-02-11] MEDS: LASIX IV SCH ×2 (06:20→18:27)
[2019-02-11] MEDS: HumaLOG SUB-Q SCH ×4 (08:00→22:02)
--- NOTE | 2019-02-11 09:46 | Progress Note ---
Assessment and Plan Shortness of breath Leukocytosis Hyponatremia Hx of PE/DVT on eliquis as an outpatient. Diabetes An echocardiogram done 01/10/2019 reports dilated right heart chambers with severe pulmonary hypertension, RVSP 65-70 mmHg. Normal left ventricular systolic function, EF 60-65%. Conservative cardiac management. Subjective Date of service: 02/11/19 Interval history: Patient has no complaints. No distress noted. Objective Vital Signs Temp Pulse Resp BP Pulse Ox 02/11/19 08:16 97.5 F L 111 H 14 93/69 96 02/11/19 03:37 98.0 F 18 111/72 02/10/19 23:53 98.0 F 20 98/72 02/10/19 23:33 95 02/10/19 20:24 122 H 02/10/19 19:07 98.0 F 122 H 18 109/71 92 02/10/19 18:42 113 H 02/10/19 15:59 97.9 F 122 H 18 103/75 90 02/10/19 11:50 98.2 F 118 H 18 95/65 93 - Physical Examination General: No Apparent Distress HEENT: Positive: PERRL Neck: Positive: trachea midline Cardiac: Positive: Tachycardia Lungs: Positive: Decreased Breath Sounds Neuro: Positive: Grossly Intact Extremities: Present: edema (mild)
[2019-02-11] MEDS: ROCEPHIN/NS 2 GM/100 ML 2 GM/100 ML BAG IV SCH (11:00)
[2019-02-11] MEDS: SODIUM CHLORIDE FLUSH SYRINGE 10 ML IV SCH ×2 (11:00→22:01)
[2019-02-11] MEDS: ELIQUIS PO SCH ×2 (11:00→21:55)
--- NOTE | 2019-02-11 11:31 | Progress Note ---
Assessment and Plan Assessment and plan: LLL pneumonia. Cont. abx. F/U serial CXR in a.m. Parapneumonic effusion. Continue IV antibodies and follow chest x-ray Sepsis. Etiology secondary to above. Continue antibiotic and follow-up lactic acid level and blood cultures. Hyponatremia. 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 Follow BMP. Diabetes mellitus type 2. Continue Accu-Cheks and sliding scale insulin. History of DVT. Continue anticoagulation. On eliquis as an outpatient. History Interval history: No new issues Hospitalist Physical - Constitutional Vitals: Temp Pulse Resp BP Pulse Ox 97.5 F L 111 H 14 93/69 96 02/11/19 08:16 02/11/19 08:16 02/11/19 08:16 02/11/19 08:16 02/11/19 08:16 General appearance: Present: no acute distress - EENT Eyes: Present: PERRL, EOM intact ENT: hearing intact, clear oral mucosa, dentition normal - Neck Neck: Present: supple, normal ROM - Respiratory Respiratory effort: normal Respiratory: bilateral: CTA - Cardiovascular Rhythm: regular Heart Sounds: Present: S1 & S2. Absent: gallop, rub - Extremities Extremities: no ischemia, No edema, Full ROM - Abdominal General gastrointestinal: soft, non-tender, non-distended, normal bowel sounds - Integumentary Integumentary: Present: clear, warm, dry - Neurologic Neurologic: CNII-XII intact, moves all extremities Results - Labs CBC & Chem 7: 02/09/19 18:06 02/09/19 18:06 Labs: Laboratory Last Values WBC 20.4 K/mm3 (4.5-11.0) H 02/09/19 18:06 RBC 5.39 M/mm3 (3.65-5.03) H 02/09/19 18:06 Hgb 11.6 gm/dl (10.1-14.3) 02/09/19 18:06 Hct 36.4 % (30.3-42.9) 02/09/19 18:06 MCV 67 fl (79-97) L 02/09/19 18:06 MCH 22 pg (28-32) L 02/09/19 18:06 MCHC 32 % (30-34) 02/09/19 18:06 RDW 17.6 % (13.2-15.2) H 02/09/19 18:06 Plt Count 481 K/mm3 (140-440) H 02/09/19 18:06 Add Manual Diff Complete 02/09/19 18:06 Total Counted 100 02/09/19 18:06 Seg Neutrophils % Electrifier Operator 02/09/19 18:06 Seg Neuts % (Manual) 94.0 % (40.0-70.0) H 02/09/19 18:06 0 % 02/09/19 18:06 5.0 % (13.4-35.0) L 02/09/19 18:06 Reactive Lymphs % (Man) 0 % 02/09/19 18:06 1.0 % (0.0-7.3) 02/09/19 18:06 0 % (0.0-4.3) 02/09/19 18:06 0 % (0.0-1.8) 02/09/19 18:06 0 % 02/09/19 18:06 0 % 02/09/19 18:06 0 % 02/09/19 18:06 0 % 02/09/19 18:06 Nucleated RBC % Not Reportable 02/09/19 18:06 Seg Neutrophils # Man 19.2 K/mm3 (1.8-7.7) H 02/09/19 18:06 Band Neutrophils # 0.0 K/mm3 02/09/19 18:06 1.0 K/mm3 (1.2-5.4) L 02/09/19 18:06 Abs React Lymphs (Man) 0.0 K/mm3 02/09/19 18:06 0.2 K/mm3 (0.0-0.8) 02/09/19 18:06 0.0 K/mm3 (0.0-0.4) 02/09/19 18:06 0.0 K/mm3 (0.0-0.1) 02/09/19 18:06 0.0 K/mm3 02/09/19 18:06 0.0 K/mm3 02/09/19 18:06 0.0 K/mm3 02/09/19 18:06 Blast Cells # 0.0 K/mm3 02/09/19 18:06 WBC Morphology Not Reportable 02/09/19 18:06 Hypersegmented Neuts Not Reportable 02/09/19 18:06 Hyposegmented Neuts Not Reportable 02/09/19 18:06 Hypogranular Neuts Not Reportable 02/09/19 18:06 Not Reportable 02/09/19 18:06 Not Reportable 02/09/19 18:06 Not Reportable 02/09/19 18:06 Not Reportable 02/09/19 18:06 Not Reportable 02/09/19 18:06 Not Reportable 02/09/19 18:06 Consistent w auto 02/09/19 18:06 Not Reportable 02/09/19 18:06 Plt Clumps, EDTA Not Reportable 02/09/19 18:06 Not Reportable 02/09/19 18:06 Not Reportable 02/09/19 18:06 Not Reportable 02/09/19 18:06 Plt Morphology Comment Not Reportable 02/09/19 18:06 RBC Morphology Not Reportable 02/09/19 18:06 Dimorphic RBCs Not Reportable 02/09/19 18:06 Not Reportable 02/09/19 18:06 Not Reportable 02/09/19 18:06 Not Reportable 02/09/19 18:06 Not Reportable 02/09/19 18:06 1+ 02/09/19 18:06 Not Reportable 02/09/19 18:06 Not Reportable 02/09/19 18:06 Not Reportable 02/09/19 18:06 Not Reportable 02/09/19 18:06 Few 02/09/19 18:06 Few 02/09/19 18:06 Not Reportable 02/09/19 18:06 Not Reportable 02/09/19 18:06 Not Reportable 02/09/19 18:06 Not Reportable 02/09/19 18:06 Not Reportable 02/09/19 18:06 Not Reportable 02/09/19 18:06 Not Reportable 02/09/19 18:06 Not Reportable 02/09/19 18:06 Acanthocytes (Spur) Not Reportable 02/09/19 18:06 Rouleaux Not Reportable 02/09/19 18:06 Not Reportable 02/09/19 18:06 Not Reportable 02/09/19 18:06 Not Reportable 02/09/19 18:06 Not Reportable 02/09/19 18:06 Hem Pathologist Commnt No 02/09/19 18:06 PT 22.6 Sec. (12.2-14.9) H 02/09/19 18:06 INR 2.04 (0.87-1.13) H 02/09/19 18:06 APTT 40.9 Sec. (24.2-36.6) H 02/09/19 23:15 Sodium 123 mmol/L (137-145) L 02/09/19 18:06 Potassium 4.3 mmol/L (3.6-5.0) 02/09/19 18:06 Chloride 87.4 mmol/L (98-107) L 02/09/19 18:06 Carbon Dioxide 22 mmol/L (22-30) 02/09/19 18:06 18 mmol/L 02/09/19 18:06 BUN 20 mg/dL (7-17) H 02/09/19 18:06 0.3 mg/dL (0.7-1.2) L 02/09/19 18:06 Estimated GFR > 60 ml/min 02/09/19 18:06 67 % 02/09/19 18:06 Glucose 179 mg/dL (65-100) H 02/09/19 18:06 POC Glucose 153 (70-105) H 02/11/19 08:26 Lactic Acid 1.70 mmol/L (0.7-2.0) 02/10/19 03:43 Calcium 8.5 mg/dL (8.4-10.2) 02/09/19 18:06 Magnesium 1.70 mg/dL (1.7-2.3) 02/09/19 23:15 0.30 mg/dL (0.1-1.2) 02/09/19 18:06 AST 18 units/L (5-40) 02/09/19 18:06 ALT 10 units/L (7-56) 02/09/19 18:06 61 units/L (35-129) 02/09/19 18:06 < 0.010 ng/mL (0.00-0.029) 02/09/19 23:15 NT-Pro-B Natriuret Pep 7069 pg/mL (0-900) H 02/09/19 18:06 6.8 g/dL (6.3-8.2) 02/09/19 18:06 2.9 g/dL (3.9-5) L 02/09/19 18:06 0.7 % 02/09/19 18:06 TSH 1.890 mlU/mL (0.270-4.200) 02/09/19 23:15 Free T4 0.89 ng/dL (0.76-1.46) 02/09/19 23:15 Active Medications - Current Medications Current Medications: Generic Name Dose Route Start Last Admin Trade Name Freq PRN Reason Stop Dose Admin Acetaminophen 650 mg 02/09/19 20:06 02/10/19 11:10 Tylenol PO 650 mg Q4H PRN Administration Pain MILD(1-3)/Fever >100.5/KEMP Apixaban 5 mg 02/10/19 10:00 02/11/19 11:00 Eliquis PO 5 mg BID DREW Administration Protocol Dextrose 50 ml 02/09/19 20:09 D50w (25gm) Syringe IV PRN PRN Hypoglycemia Furosemide 40 mg 02/10/19 06:00 02/11/19 06:20 Lasix IV 40 mg BID@0600,1800 DREW Administration Ceftriaxone Sodium 2 gm in 100 mls @ 200 mls/hr 02/09/19 20:00 02/11/19 11:00 Rocephin/Ns 2 Gm/100 Ml IV 200 mls/hr Q24HR DREW Administration Protocol Azithromycin 500 mg/ Sodium 250 mls @ 250 mls/hr 02/09/19 21:00 02/10/19 22:01 Chloride IV 250 mls/hr Q24H DREW Administration Protocol Insulin Human Lispro 0 unit 02/09/19 22:00 02/11/19 08:00 Humalog SUB-Q 2 unit ACHS DREW Administration Protocol Ondansetron HCl 4 mg 02/09/19 20:06 Zofran IV Q8H PRN Nausea And Vomiting Sodium Chloride 10 ml 02/09/19 22:00 02/11/19 11:00 Sodium Chloride Flush Syringe 10 Ml IV 10 ml BID DREW Administration Sodium Chloride 10 ml 02/09/19 20:06 Sodium Chloride Flush Syringe 10 Ml IV PRN PRN LINE FLUSH Nutrition/Malnutrition Assess - Dietary Evaluation Nutrition/Malnutrition Findings: Nutrition Notes Start: 02/10/19 15:31 Freq: Status: Active Protocol: Document 02/10/19 16:07 RM (Rec: 02/10/19 16:19 [id number]) Nutrition Notes Need for Assessment generated from: MST Initial or Follow up Assessment Current Diagnosis Diabetes,Heart Failure Other Pertinent Diagnosis Pneu, SIRS Current Diet Cardiac Labs/Tests Reviewed Pertinent Medications Lasix Height 5 ft 3 in Weight 60.781 kg Usual Body Weight 47.27 kg [place] Body Weight (kg) 52.27 BMI 23.7 Subjective/Other Information Screened for malnutrition. Pt stated that TAKE OUT WAITRESS her appetite was poor and that she ate 3 meals daily. Stated that her appetite is poor now and that she ate 25% of breakfast and 1/3 of her lunch . Stated UBW was 104 lbs around January 04. Per nurse pt has some abdominal swelling. Noted temporal wasting. Percent of energy/protein needs met: 42%/33% Burn Absent Trauma Absent #1 Nutrition Diagnosis Malnutrition Etiology decreased appetite As Evidenced by Signs and Symptoms pt statement that TAKE OUT WAITRESS she ate 3 small meals daily, temporal wasting, nurse statement that pt has some abdominal swelling Is patient on ventilator? No Is Patient Ambulatory and/or Out of Bed Yes REE-([facility]-ambulatory/OOB) [ 1439.022 [id number]] Calculation Used for Recommendations [facility] Additional Notes Protein Needs: 73-92g (1.2-1. 5g/kg) Fluid Needs: 1 ml/kcal Nutrition Intervention Change Diet Order: Cardiac/Consistent CHO Add Supplement/Snack (indicate name/kcal Gluceran strawberry 1 daily /protein ) Provides kCal: 240 Provides Protein (gm) 10 Goal #1 Meet at least 75% of calorie and protein needs via PO and ONS intakes Anticipated Discharge Needs: Cardiac/Consistent CHO diet Follow-Up By: 02/12/19 Additional Comments Follow for PO and ONS intakes
[2019-02-11] MEDS: ZITHROMAX 500 MG in NACL 0.9% 250ML 250 ML IV SCH (20:55)
[2019-02-11] MEDS: SENOKOT S PO PRN (21:54)
[2019-02-12 05:43] LABS: Hematocrit 35.3 % (30.3-42.9); Hemoglobin 11.5 gm/dl (10.1-14.3); Mean Corpuscular HGB Conc 33 % (30-34); Platelet Count 467 K/mm3 (140-440); Red Blood Count 5.35 M/mm3 (3.65-5.03)
[2019-02-12 06:00] LABS: BUN/Creatinine Ratio 63; Blood Urea Nitrogen 19 mg/dL (7-17); Calcium 8.2 mg/dL (8.4-10.2); Hemolysis Index 0
[2019-02-12 06:04] LABS: Mean Corpuscular Volume 66 fl (79-97)
[2019-02-12] MEDS: LASIX IV SCH ×2 (06:44→18:19)
[2019-02-12 07:28] LABS: Basophils % (Manual) 0 % (0.0-1.8); Eosinophils % (Manual) 0 % (0.0-4.3); Monocytes % (Manual) 0 % (0.0-7.3); Total Cells Counted 100
[2019-02-12 07:33] LABS: Anisocytosis 1+; Ovalocytes Few; Platelet Estimate Consistent w Auto; Target Cells Few
[2019-02-12] MEDS: ROCEPHIN/NS 2 GM/100 ML 2 GM/100 ML BAG IV SCH (09:25)
[2019-02-12] MEDS: HumaLOG SUB-Q SCH ×4 (09:26→21:29)
[2019-02-12] MEDS: ELIQUIS PO SCH ×2 (09:26→21:11)
[2019-02-12] MEDS: SODIUM CHLORIDE FLUSH SYRINGE 10 ML IV SCH ×2 (09:32→21:13)
--- NOTE | 2019-02-12 09:32 | XRay Report ---
CHEST 2 VIEWS INDICATION: Pneumonia. COMPARISON: 02/09/2019 FINDINGS: Support devices: None. Heart: Within normal limits. Lungs/pleura: Subtle bilateral lower lobe hazy opacities are identified consistent with atelectatic c hanges or small pleural effusions. The upper lung zones remain clear. No pneumothorax. The bony thor ax is grossly intact. Additional findings: None. IMPRESSION: Bibasilar opacities most consistent with bibasilar atelectasis or small pleural effusions. No overwhe lming change since the exam 3 days ago. Signer Name: Edvin Flores Jr, MD Signed: 02/12/2019 9:27 AM Workstation Name: [id number]
--- NOTE | 2019-02-12 11:30 | Consultation ---
History of Present Illness - Reason for Consult Consult date: 02/12/19 - History of Present Illness 68 yo F PMhx DM2, DVT on eliquis, CHF presented to hospital complaining of worsening weakness, SOB, bilateral LE edema, and poor exercise tolerance. She notes these symptoms began approximately 4-5 days prior to admission and continued to progress leading to her presentation. After being seen in the ED it was determined she had a CHF exacerbation as well as concern for an LLL pneumonia. She otherwise denied symptoms of systemic infection such as fevers, sweats, chills. She was seen in the ER approximately 1 month ago with significant bilateral DVTs, and was then placed on Eliquis. She notes she does not feel improved since admission. She complains of cough with some sputum production that is yellow. Afebrile since admission with an elevated white count to 22. She is currently receiving ceftriaxone and azithromycin. Blood cultures on 02/09 and 02/11 are NGTD. CXR showed a small L pleural effusion and a repeat showed bilateral atelectasis. Past History Past Medical History: diabetes, DVT, heart failure Past Surgical History: Other (Eye surgery) Social history: single. denies: smoking, alcohol abuse, prescription drug abuse, IV drug use Family history: hypertension Medications and Allergies Allergies Allergy/AdvReac Type Severity Reaction Status Date / Time No Known Allergies Allergy Verified 01/15/19 14:39 Home Medications Medication Instructions Recorded Confirmed Last Taken Type metFORMIN [Glucophage] 500 mg PO BID 01/10/19 02/09/19 Unknown History Apixaban [Eliquis] 2 tab PO BID #26 tablet 01/12/19 02/09/19 Unknown Rx Furosemide [Lasix] 20 mg PO BID 02/09/19 02/09/19 Unknown History Active Meds: Active Medications Acetaminophen (Tylenol) 650 mg PO Q4H PRN PRN Reason: Pain MILD(1-3)/Fever >100.5/KEMP Last Admin: 02/10/19 11:10 Dose: 650 mg Documented by: Apixaban (Eliquis) 5 mg PO BID [facility]; Protocol Last Admin: 02/12/19 09:26 Dose: 5 mg Documented by: Dextrose (D50w (25gm) Syringe) 50 ml IV PRN PRN PRN Reason: Hypoglycemia Furosemide (Lasix) 40 mg IV BID@0600,1800 [facility] Last Admin: 02/12/19 06:44 Dose: 40 mg Documented by: Ceftriaxone Sodium (Rocephin/Ns 2 Gm/100 Ml) 2 gm in 100 mls @ 200 mls/hr IV Q24HR [facility]; Protocol Last Admin: 02/12/19 09:25 Dose: 200 mls/hr Documented by: Azithromycin 500 mg/ Sodium (Chloride) 250 mls @ 250 mls/hr IV Q24H [facility]; Protocol Last Admin: 02/11/19 20:55 Dose: 250 mls/hr Documented by: Insulin Human Lispro (Humalog) 0 unit SUB-Q ACHS [facility]; Protocol Last Admin: 02/12/19 09:26 Dose: Not Given Documented by: Ondansetron HCl (Zofran) 4 mg IV Q8H PRN PRN Reason: Nausea And Vomiting Senna/Docusate Sodium (Senokot S) 2 tab PO Q12H PRN PRN Reason: Laxative Effect Last Admin: 02/11/19 21:54 Dose: 2 tab Documented by: Sodium Chloride (Sodium Chloride Flush Syringe 10 Ml) 10 ml IV BID [facility] Last Admin: 02/12/19 09:32 Dose: 10 ml Documented by: Sodium Chloride (Sodium Chloride Flush Syringe 10 Ml) 10 ml IV PRN PRN PRN Reason: LINE FLUSH Review of Systems Constitutional: weakness, no fever, no chills, no sweats Ears, nose, mouth and throat: no sinus pain, no dysphagia, no sore throat Cardiovascular: edema, no chest pain, no orthopnea, no palpitations Respiratory: shortness of breath, dyspnea on exertion, no cough with sputum Gastrointestinal: no abdominal pain, no nausea, no vomiting, no diarrhea Genitourinary Female: no flank pain, no dysuria, no urinary frequency Musculoskeletal: no neck pain, no low back pain, no redness of joints Integumentary: no rash, no pruritis, no redness, no sores Neurological: no numbness, no tingling, no syncope Endocrine: no polydipsia, no polyuria, no nocturia Hematologic/Lymphatic: easy bruising, easy bleeding (secondary to eliquis), no lymphadenopathy Physical Examination - Physical Exam Narrative exam: Constitutional: awake, no distress, following commands Head, Ears, Nose: Normocephalic, atraumatic. External ears, nose normal Eyes: Conjunctivae/corneas clear. No icterus. No ptosis. Neck: Supple, no meningeal signs Oral: fair dentition, moist mucous membranes Cardiovascular: S1, S2 normal. Normal rhythm Respiratory: Good air entry, clear to auscultation bilaterally GI: Soft, non-tender; bowel sounds normal. No peritoneal signs Musculoskeletal: 2+ pedal edema Skin: No rash or abscess Hem/Lymphatic: No palpable cervical or supraclavicular nodes. No lymphangitis Psych: no agitation Neurological: Moves all extremities, no focal defects - Constitutional Vitals: Vital Signs Temp Pulse Resp BP Pulse Ox 97.8 F 114 H 18 134/87 95 02/12/19 03:45 02/12/19 03:45 02/12/19 03:45 02/12/19 03:45 02/12/19 10:11 Temperature -Last 24 Hours Temperature 97.8 F Temperature 97.8 F Temperature 97.6 F Temperature 97.8 F Results - Labs CBC & Chem 7: 02/12/19 04:50 02/12/19 04:50 Labs: Abnormal lab results 02/11/19 02/11/19 02/11/19 Range/Units 12:11 16:40 21:15 WBC (4.5-11.0) K/mm3 RBC (3.65-5.03) M/mm3 MCV (79-97) fl MCH (28-32) pg RDW (13.2-15.2) % Plt Count (140-440) K/mm3 Seg Neuts % (Manual) (40.0-70.0) % Lymphocytes % (Manual) (13.4-35.0) % Seg Neutrophils # Man (1.8-7.7) K/mm3 Lymphocytes # (Manual) (1.2-5.4) K/mm3 Sodium (137-145) mmol/L Chloride (98-107) mmol/L BUN (7-17) mg/dL Creatinine (0.7-1.2) mg/dL Glucose (65-100) mg/dL POC Glucose 243 H 185 H 112 H (70-105) Calcium (8.4-10.2) mg/dL 02/12/19 02/12/19 02/12/19 Range/Units 04:50 04:50 07:41 WBC 22.3 H (4.5-11.0) K/mm3 RBC 5.35 H (3.65-5.03) M/mm3 MCV 66 L (79-97) fl MCH 22 L (28-32) pg RDW 18.0 H (13.2-15.2) % Plt Count 467 H (140-440) K/mm3 Seg Neuts % (Manual) 98.0 H (40.0-70.0) % Lymphocytes % (Manual) 2.0 L (13.4-35.0) % Seg Neutrophils # Man 21.9 H (1.8-7.7) K/mm3 Lymphocytes # (Manual) 0.4 L (1.2-5.4) K/mm3 Sodium 125 L (137-145) mmol/L Chloride 87.8 L (98-107) mmol/L BUN 19 H (7-17) mg/dL Creatinine 0.3 L (0.7-1.2) mg/dL Glucose 134 H (65-100) mg/dL POC Glucose 144 H (70-105) Calcium 8.2 L (8.4-10.2) mg/dL - Imaging and Cardiology Chest x-ray: image reviewed Assessment and Plan Cultures: 02/09/19 BCx - NGTD 02/11/19 BCx - NGTD A/P: 68 yo F PMhx DM2, DVT on eliquis, CHF admitted with CHF exacerbation and pneumonia. 1. Community acquired pneumonia - Since she was recently in the hospital and has not improved with standard CAP treatment, I will change the ceftriaxone to cefepime 2g q8h. If she does not improve with this treatment I would recommend a CT angio of the chest to evaluate for PE as she had very large DVTs one month ago; perhaps while on anticoagulation a piece of clot broke off. It would also get us a better look at her pneumonia, as CXR wasn't conclusive. 2. Acute CHF exacerbation 3. DM2 4. Hx of DVT on anticoagulation Recs: - continue azithromycin - stop ceftriaxone - start cefepime 2g q8h - consider CTA of chest if no improvement. Thank you for the consult and we will continue to follow with you. Brenda Snider MD [facility] C: [phone] O: [phone] F: [phone]
--- NOTE | 2019-02-12 14:07 | Progress Note ---
Assessment and Plan Assessment and plan: LLL pneumonia. Cont. abx. F/U serial CXR in a.m. Parapneumonic effusion. Continue IV antibodies and follow chest x-ray Sepsis. Etiology secondary to above. Continue antibiotic and follow-up lactic acid level and blood cultures. ID consulted. Persistent leukocytosis Hyponatremia. 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 Follow BMP. Diabetes mellitus type 2. Continue Accu-Cheks and sliding scale insulin. History of DVT. Continue anticoagulation. On eliquis as an outpatient. History Interval history: No new issues Hospitalist Physical - Constitutional Vitals: Temp Pulse Resp BP Pulse Ox 97.8 F 114 H 18 134/87 95 02/12/19 03:45 02/12/19 03:45 02/12/19 03:45 02/12/19 03:45 02/12/19 10:11 General appearance: Present: no acute distress - EENT Eyes: Present: PERRL, EOM intact ENT: hearing intact, clear oral mucosa, dentition normal - Neck Neck: Present: supple, normal ROM - Respiratory Respiratory effort: normal Respiratory: bilateral: CTA - Cardiovascular Rhythm: regular Heart Sounds: Present: S1 & S2. Absent: gallop, rub - Extremities Extremities: no ischemia, No edema, Full ROM - Abdominal General gastrointestinal: soft, non-tender, non-distended, normal bowel sounds - Integumentary Integumentary: Present: clear, warm, dry - Neurologic Neurologic: CNII-XII intact, moves all extremities Results - Labs CBC & Chem 7: 02/12/19 04:50 02/12/19 04:50 Labs: Laboratory Last Values WBC 22.3 K/mm3 (4.5-11.0) H 02/12/19 04:50 RBC 5.35 M/mm3 (3.65-5.03) H 02/12/19 04:50 Hgb 11.5 gm/dl (10.1-14.3) 02/12/19 04:50 Hct 35.3 % (30.3-42.9) 02/12/19 04:50 MCV 66 fl (79-97) L 02/12/19 04:50 MCH 22 pg (28-32) L 02/12/19 04:50 MCHC 33 % (30-34) 02/12/19 04:50 RDW 18.0 % (13.2-15.2) H 02/12/19 04:50 Plt Count 467 K/mm3 (140-440) H 02/12/19 04:50 Add Manual Diff Complete 02/12/19 04:50 Total Counted 100 02/12/19 04:50 Seg Neutrophils % Files Supervisor 02/12/19 04:50 Seg Neuts % (Manual) 98.0 % (40.0-70.0) H 02/12/19 04:50 0 % 02/12/19 04:50 2.0 % (13.4-35.0) L 02/12/19 04:50 Reactive Lymphs % (Man) 0 % 02/12/19 04:50 0 % (0.0-7.3) 02/12/19 04:50 0 % (0.0-4.3) 02/12/19 04:50 0 % (0.0-1.8) 02/12/19 04:50 0 % 02/12/19 04:50 0 % 02/12/19 04:50 0 % 02/12/19 04:50 0 % 02/12/19 04:50 Nucleated RBC % Not Reportable 02/12/19 04:50 Seg Neutrophils # Man 21.9 K/mm3 (1.8-7.7) H 02/12/19 04:50 Band Neutrophils # 0.0 K/mm3 02/12/19 04:50 0.4 K/mm3 (1.2-5.4) L 02/12/19 04:50 Abs React Lymphs (Man) 0.0 K/mm3 02/12/19 04:50 0.0 K/mm3 (0.0-0.8) 02/12/19 04:50 0.0 K/mm3 (0.0-0.4) 02/12/19 04:50 0.0 K/mm3 (0.0-0.1) 02/12/19 04:50 0.0 K/mm3 02/12/19 04:50 0.0 K/mm3 02/12/19 04:50 0.0 K/mm3 02/12/19 04:50 Blast Cells # 0.0 K/mm3 02/12/19 04:50 WBC Morphology Not Reportable 02/12/19 04:50 Hypersegmented Neuts Not Reportable 02/12/19 04:50 Hyposegmented Neuts Not Reportable 02/12/19 04:50 Hypogranular Neuts Not Reportable 02/12/19 04:50 Not Reportable 02/12/19 04:50 Not Reportable 02/12/19 04:50 Not Reportable 02/12/19 04:50 Not Reportable 02/12/19 04:50 Not Reportable 02/12/19 04:50 Not Reportable 02/12/19 04:50 Consistent w auto 02/12/19 04:50 Not Reportable 02/12/19 04:50 Plt Clumps, EDTA Not Reportable 02/12/19 04:50 Not Reportable 02/12/19 04:50 Not Reportable 02/12/19 04:50 Not Reportable 02/12/19 04:50 Plt Morphology Comment Not Reportable 02/12/19 04:50 RBC Morphology Not Reportable 02/12/19 04:50 Dimorphic RBCs Not Reportable 02/12/19 04:50 Not Reportable 02/12/19 04:50 Not Reportable 02/12/19 04:50 Not Reportable 02/12/19 04:50 1+ 02/12/19 04:50 Not Reportable 02/12/19 04:50 Not Reportable 02/12/19 04:50 Not Reportable 02/12/19 04:50 Not Reportable 02/12/19 04:50 Not Reportable 02/12/19 04:50 Few 02/12/19 04:50 Not Reportable 02/12/19 04:50 Few 02/12/19 04:50 Not Reportable 02/12/19 04:50 Not Reportable 02/12/19 04:50 Not Reportable 02/12/19 04:50 Not Reportable 02/12/19 04:50 Not Reportable 02/12/19 04:50 Not Reportable 02/12/19 04:50 Not Reportable 02/12/19 04:50 Acanthocytes (Spur) Not Reportable 02/12/19 04:50 Rouleaux Not Reportable 02/12/19 04:50 Not Reportable 02/12/19 04:50 Not Reportable 02/12/19 04:50 Not Reportable 02/12/19 04:50 Not Reportable 02/12/19 04:50 Hem Pathologist Commnt No 02/12/19 04:50 PT 22.6 Sec. (12.2-14.9) H 02/09/19 18:06 INR 2.04 (0.87-1.13) H 02/09/19 18:06 APTT 40.9 Sec. (24.2-36.6) H 02/09/19 23:15 Sodium 125 mmol/L (137-145) L 02/12/19 04:50 Potassium 4.1 mmol/L (3.6-5.0) 02/12/19 04:50 Chloride 87.8 mmol/L (98-107) L 02/12/19 04:50 Carbon Dioxide 24 mmol/L (22-30) 02/12/19 04:50 17 mmol/L 02/12/19 04:50 BUN 19 mg/dL (7-17) H 02/12/19 04:50 0.3 mg/dL (0.7-1.2) L 02/12/19 04:50 Estimated GFR > 60 ml/min 02/12/19 04:50 63 % 02/12/19 04:50 Glucose 134 mg/dL (65-100) H 02/12/19 04:50 POC Glucose 180 (70-105) H 02/12/19 12:26 Lactic Acid 1.70 mmol/L (0.7-2.0) 02/10/19 03:43 Calcium 8.2 mg/dL (8.4-10.2) L 02/12/19 04:50 Magnesium 1.70 mg/dL (1.7-2.3) 02/09/19 23:15 0.30 mg/dL (0.1-1.2) 02/09/19 18:06 AST 18 units/L (5-40) 02/09/19 18:06 ALT 10 units/L (7-56) 02/09/19 18:06 61 units/L (35-129) 02/09/19 18:06 < 0.010 ng/mL (0.00-0.029) 02/09/19 23:15 NT-Pro-B Natriuret Pep 7069 pg/mL (0-900) H 02/09/19 18:06 6.8 g/dL (6.3-8.2) 02/09/19 18:06 2.9 g/dL (3.9-5) L 02/09/19 18:06 0.7 % 02/09/19 18:06 TSH 1.890 mlU/mL (0.270-4.200) 02/09/19 23:15 Free T4 0.89 ng/dL (0.76-1.46) 02/09/19 23:15 Active Medications - Current Medications Current Medications: Generic Name Dose Route Start Last Admin Trade Name Freq PRN Reason Stop Dose Admin Acetaminophen 650 mg 02/09/19 20:06 02/10/19 11:10 Tylenol PO 650 mg Q4H PRN Administration Pain MILD(1-3)/Fever >100.5/KEMP Apixaban 5 mg 02/10/19 10:00 02/12/19 09:26 Eliquis PO 5 mg BID DREW Administration Protocol Dextrose 50 ml 02/09/19 20:09 D50w (25gm) Syringe IV PRN PRN Hypoglycemia Furosemide 40 mg 02/10/19 06:00 02/12/19 06:44 Lasix IV 40 mg BID@0600,1800 DREW Administration Ceftriaxone Sodium 2 gm in 100 mls @ 200 mls/hr 02/09/19 20:00 02/12/19 09:25 Rocephin/Ns 2 Gm/100 Ml IV 200 mls/hr Q24HR DREW Administration Protocol Azithromycin 500 mg/ Sodium 250 mls @ 250 mls/hr 02/09/19 21:00 02/11/19 20:55 Chloride IV 250 mls/hr Q24H DREW Administration Protocol Insulin Human Lispro 0 unit 02/09/19 22:00 02/12/19 13:10 Humalog SUB-Q 2 unit ACHS DREW Administration Protocol Ondansetron HCl 4 mg 02/09/19 20:06 Zofran IV Q8H PRN Nausea And Vomiting Senna/Docusate Sodium 2 tab 02/11/19 21:29 02/11/19 21:54 Senokot S PO 2 tab Q12H PRN Administration Laxative Effect Sodium Chloride 10 ml 02/09/19 22:00 02/12/19 09:32 Sodium Chloride Flush Syringe 10 Ml IV 10 ml BID DREW Administration Sodium Chloride 10 ml 02/09/19 20:06 Sodium Chloride Flush Syringe 10 Ml IV PRN PRN LINE FLUSH Nutrition/Malnutrition Assess - Dietary Evaluation Nutrition/Malnutrition Findings: Nutrition Notes Start: 02/10/19 15:31 Freq: Status: Active Protocol: Document 02/10/19 16:07 RM (Rec: 02/10/19 16:19 RM [id number]) Nutrition Notes Need for Assessment generated from: MST Initial or Follow up Assessment Current Diagnosis Diabetes,Heart Failure Other Pertinent Diagnosis Pneu, SIRS Current Diet Cardiac Labs/Tests Reviewed Pertinent Medications Lasix Height 5 ft 3 in Weight 60.781 kg Usual Body Weight 47.27 kg [place] Body Weight (kg) 52.27 BMI 23.7 Subjective/Other Information Screened for malnutrition. Pt stated that GAMEMASTER her appetite was poor and that she ate small 3 meals daily. Stated that her appetite is poor now and that she ate 25% of breakfast and 1/3 of her lunch. Stated UBW was 104 lbs around January 04. Per nurse pt has some abdominal swelling. Noted temporal wasting. Percent of energy/protein needs met: 42%/33% Burn Absent Trauma Absent #1 Nutrition Diagnosis Malnutrition Etiology decreased appetite As Evidenced by Signs and Symptoms pt statement that GAMEMASTER she ate 3 small meals daily, temporal wasting, nurse statement that pt has some abdominal swelling Is patient on ventilator? No Is Patient Ambulatory and/or Out of Bed Yes REE-([facility]-ambulatory/OOB) [ 1439.022 [id number]] Calculation Used for Recommendations [facility] Additional Notes Protein Needs: 73-92g (1.2-1. 5g/kg) Fluid Needs: 1 ml/kcal Nutrition Intervention Change Diet Order: Cardiac/Consistent CHO Add Supplement/Snack (indicate name/kcal Gluceran strawberry 1 daily /protein ) Provides kCal: 240 Provides Protein (gm) 10 Goal #1 Meet at least 75% of calorie and protein needs via PO and ONS intakes Anticipated Discharge Needs: Cardiac/Consistent CHO diet Follow-Up By: 02/12/19 Additional Comments Follow for PO and ONS intakes
[2019-02-12] MEDS: MAXIPIME/NS 2 GM/100 ML 2 GM/100 ML BAG IV SCH ×2 (18:16→23:27)
[2019-02-12] MEDS: ZITHROMAX 500 MG in NACL 0.9% 250ML 250 ML IV SCH (21:11)
[2019-02-12] MEDS: SENOKOT S PO PRN (21:11)
[2019-02-13] MEDS: LASIX IV SCH ×2 (06:27→18:25)
[2019-02-13] MEDS: HumaLOG SUB-Q SCH ×4 (08:39→22:17)
[2019-02-13] MEDS: MAXIPIME/NS 2 GM/100 ML 2 GM/100 ML BAG IV SCH ×2 (08:51→17:00)
[2019-02-13] MEDS: ELIQUIS PO SCH ×2 (09:29→22:16)
[2019-02-13] MEDS: SODIUM CHLORIDE FLUSH SYRINGE 10 ML IV SCH ×2 (09:30→22:17)
--- NOTE | 2019-02-13 09:44 | Progress Note ---
Assessment and Plan Assessment and plan: LLL pneumonia. Cont. abx. F/U serial CXR in a.m. Parapneumonic effusion. Continue IV antibiotics and follow chest x-ray Sepsis. Etiology secondary to above. Continue antibiotic and follow-up lactic acid level and blood cultures. ID following. Persistent leukocytosis--recheck CBC this a.m. Hyponatremia. 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 Follow BMP. Diabetes mellitus type 2. Continue Accu-Cheks and sliding scale insulin. History of DVT. Continue anticoagulation. On eliquis as an outpatient. History Interval history: No new issues Hospitalist Physical - Constitutional Vitals: Temp Pulse Resp BP Pulse Ox 97.6 F 111 H 18 93/59 96 02/13/19 03:04 02/13/19 03:04 02/13/19 03:04 02/13/19 03:04 02/13/19 08:36 General appearance: Present: no acute distress - EENT Eyes: Present: PERRL, EOM intact ENT: hearing intact, clear oral mucosa, dentition normal - Neck Neck: Present: supple, normal ROM - Respiratory Respiratory effort: normal Respiratory: bilateral: CTA - Cardiovascular Rhythm: regular Heart Sounds: Present: S1 & S2. Absent: gallop, rub - Extremities Extremities: no ischemia, No edema, Full ROM - Abdominal General gastrointestinal: soft, non-tender, non-distended, normal bowel sounds - Integumentary Integumentary: Present: clear, warm, dry - Neurologic Neurologic: CNII-XII intact, moves all extremities Results - Labs CBC & Chem 7: 02/12/19 04:50 02/12/19 04:50 Labs: Laboratory Last Values WBC 22.3 K/mm3 (4.5-11.0) H 02/12/19 04:50 RBC 5.35 M/mm3 (3.65-5.03) H 02/12/19 04:50 Hgb 11.5 gm/dl (10.1-14.3) 02/12/19 04:50 Hct 35.3 % (30.3-42.9) 02/12/19 04:50 MCV 66 fl (79-97) L 02/12/19 04:50 MCH 22 pg (28-32) L 02/12/19 04:50 MCHC 33 % (30-34) 02/12/19 04:50 RDW 18.0 % (13.2-15.2) H 02/12/19 04:50 Plt Count 467 K/mm3 (140-440) H 02/12/19 04:50 Add Manual Diff Complete 02/12/19 04:50 Total Counted 100 02/12/19 04:50 Seg Neutrophils % Seed Trucker 02/12/19 04:50 Seg Neuts % (Manual) 98.0 % (40.0-70.0) H 02/12/19 04:50 0 % 02/12/19 04:50 2.0 % (13.4-35.0) L 02/12/19 04:50 Reactive Lymphs % (Man) 0 % 02/12/19 04:50 0 % (0.0-7.3) 02/12/19 04:50 0 % (0.0-4.3) 02/12/19 04:50 0 % (0.0-1.8) 02/12/19 04:50 0 % 02/12/19 04:50 0 % 02/12/19 04:50 0 % 02/12/19 04:50 0 % 02/12/19 04:50 Nucleated RBC % Not Reportable 02/12/19 04:50 Seg Neutrophils # Man 21.9 K/mm3 (1.8-7.7) H 02/12/19 04:50 Band Neutrophils # 0.0 K/mm3 02/12/19 04:50 0.4 K/mm3 (1.2-5.4) L 02/12/19 04:50 Abs React Lymphs (Man) 0.0 K/mm3 02/12/19 04:50 0.0 K/mm3 (0.0-0.8) 02/12/19 04:50 0.0 K/mm3 (0.0-0.4) 02/12/19 04:50 0.0 K/mm3 (0.0-0.1) 02/12/19 04:50 0.0 K/mm3 02/12/19 04:50 0.0 K/mm3 02/12/19 04:50 0.0 K/mm3 02/12/19 04:50 Blast Cells # 0.0 K/mm3 02/12/19 04:50 WBC Morphology Not Reportable 02/12/19 04:50 Hypersegmented Neuts Not Reportable 02/12/19 04:50 Hyposegmented Neuts Not Reportable 02/12/19 04:50 Hypogranular Neuts Not Reportable 02/12/19 04:50 Not Reportable 02/12/19 04:50 Not Reportable 02/12/19 04:50 Not Reportable 02/12/19 04:50 Not Reportable 02/12/19 04:50 Not Reportable 02/12/19 04:50 Not Reportable 02/12/19 04:50 Consistent w auto 02/12/19 04:50 Not Reportable 02/12/19 04:50 Plt Clumps, EDTA Not Reportable 02/12/19 04:50 Not Reportable 02/12/19 04:50 Not Reportable 02/12/19 04:50 Not Reportable 02/12/19 04:50 Plt Morphology Comment Not Reportable 02/12/19 04:50 RBC Morphology Not Reportable 02/12/19 04:50 Dimorphic RBCs Not Reportable 02/12/19 04:50 Not Reportable 02/12/19 04:50 Not Reportable 02/12/19 04:50 Not Reportable 02/12/19 04:50 1+ 02/12/19 04:50 Not Reportable 02/12/19 04:50 Not Reportable 02/12/19 04:50 Not Reportable 02/12/19 04:50 Not Reportable 02/12/19 04:50 Not Reportable 02/12/19 04:50 Few 02/12/19 04:50 Not Reportable 02/12/19 04:50 Few 02/12/19 04:50 Not Reportable 02/12/19 04:50 Not Reportable 02/12/19 04:50 Not Reportable 02/12/19 04:50 Not Reportable 02/12/19 04:50 Not Reportable 02/12/19 04:50 Not Reportable 02/12/19 04:50 Not Reportable 02/12/19 04:50 Acanthocytes (Spur) Not Reportable 02/12/19 04:50 Rouleaux Not Reportable 02/12/19 04:50 Not Reportable 02/12/19 04:50 Not Reportable 02/12/19 04:50 Not Reportable 02/12/19 04:50 Not Reportable 02/12/19 04:50 Hem Pathologist Commnt No 02/12/19 04:50 PT 22.6 Sec. (12.2-14.9) H 02/09/19 18:06 INR 2.04 (0.87-1.13) H 02/09/19 18:06 APTT 40.9 Sec. (24.2-36.6) H 02/09/19 23:15 Sodium 125 mmol/L (137-145) L 02/12/19 04:50 Potassium 4.1 mmol/L (3.6-5.0) 02/12/19 04:50 Chloride 87.8 mmol/L (98-107) L 02/12/19 04:50 Carbon Dioxide 24 mmol/L (22-30) 02/12/19 04:50 17 mmol/L 02/12/19 04:50 BUN 19 mg/dL (7-17) H 02/12/19 04:50 0.3 mg/dL (0.7-1.2) L 02/12/19 04:50 Estimated GFR > 60 ml/min 02/12/19 04:50 63 % 02/12/19 04:50 Glucose 134 mg/dL (65-100) H 02/12/19 04:50 POC Glucose 148 (70-105) H 02/13/19 07:30 Lactic Acid 1.70 mmol/L (0.7-2.0) 02/10/19 03:43 Calcium 8.2 mg/dL (8.4-10.2) L 02/12/19 04:50 Magnesium 1.70 mg/dL (1.7-2.3) 02/09/19 23:15 0.30 mg/dL (0.1-1.2) 02/09/19 18:06 AST 18 units/L (5-40) 02/09/19 18:06 ALT 10 units/L (7-56) 02/09/19 18:06 61 units/L (35-129) 02/09/19 18:06 < 0.010 ng/mL (0.00-0.029) 02/09/19 23:15 NT-Pro-B Natriuret Pep 7069 pg/mL (0-900) H 02/09/19 18:06 6.8 g/dL (6.3-8.2) 02/09/19 18:06 2.9 g/dL (3.9-5) L 02/09/19 18:06 0.7 % 02/09/19 18:06 TSH 1.890 mlU/mL (0.270-4.200) 02/09/19 23:15 Free T4 0.89 ng/dL (0.76-1.46) 02/09/19 23:15 Active Medications - Current Medications Current Medications: Generic Name Dose Route Start Last Admin Trade Name Freq PRN Reason Stop Dose Admin Acetaminophen 650 mg 02/09/19 20:06 02/10/19 11:10 Tylenol PO 650 mg Q4H PRN Administration Pain MILD(1-3)/Fever >100.5/KEMP Apixaban 5 mg 02/10/19 10:00 02/13/19 09:29 Eliquis PO 5 mg BID DREW Administration Protocol Dextrose 50 ml 02/09/19 20:09 D50w (25gm) Syringe IV PRN PRN Hypoglycemia Furosemide 40 mg 02/10/19 06:00 02/13/19 06:27 Lasix IV Not Given BID@0600,1800 DREW Azithromycin 500 mg/ Sodium 250 mls @ 250 mls/hr 02/09/19 21:00 02/12/19 21:11 Chloride IV 250 mls/hr Q24H DREW Administration Protocol Cefepime HCl 2 gm in 100 mls @ 200 mls/hr 02/12/19 16:00 02/13/19 08:51 Maxipime/Ns 2 Gm/100 Ml IV 200 mls/hr Q8H DREW Administration Protocol Insulin Human Lispro 0 unit 02/09/19 22:00 02/13/19 08:39 Humalog SUB-Q Not Given ACHS [facility] Protocol Ondansetron HCl 4 mg 02/09/19 20:06 Zofran IV Q8H PRN Nausea And Vomiting Senna/Docusate Sodium 2 tab 02/11/19 21:29 02/12/19 21:11 Senokot S PO 2 tab Q12H PRN Administration Laxative Effect Sodium Chloride 10 ml 02/09/19 22:00 02/13/19 09:30 Sodium Chloride Flush Syringe 10 Ml IV 10 ml BID DREW Administration Sodium Chloride 10 ml 02/09/19 20:06 Sodium Chloride Flush Syringe 10 Ml IV PRN PRN LINE FLUSH Nutrition/Malnutrition Assess - Dietary Evaluation Nutrition/Malnutrition Findings: Nutrition Notes Start: 02/10/19 15:31 Freq: Status: Active Protocol: Document 02/12/19 17:31 RM (Rec: 02/12/19 17:33 RM [id number]) Nutrition Notes Initial or Follow up Reassessment Current Diagnosis Diabetes,Heart Failure Other Pertinent Diagnosis LLL Pneu, SIRS Current Diet Cardiac Labs/Tests Reviewed Pertinent Medications Lasix Height 5 ft 3 in Weight 61.5 kg [place] Body Weight (kg) 52.27 BMI 24.0 Subjective/Other Information Pt stated that her appetite fluctuates and that she eats between 1/3 and 50% of her meals. Stated that she drinks the Glucerna. Percent of energy/protein needs met: 70%/60% Burn Absent Trauma Absent #1 Nutrition Diagnosis Malnutrition Diagnosis Progress(for reassessment Continues documentation) Is patient on ventilator? No Is Patient Ambulatory and/or Out of Bed Yes REE-([facility]-ambulatory/OOB) [ 1448.369 NUTR.MSJOOB] Calculation Used for Recommendations [facility] Additional Notes Protein Needs: 73-92g (1.2-1. 5g/kg) Fluid Needs: 1 ml/kcal Nutrition Intervention Change Diet Order: Cardiac/Consistent CHO Add Supplement/Snack (indicate name/kcal Glucerna strawberry BID /protein ) Provides kCal: 480 Provides Protein (gm) 20 Goal #1 Meet at least 75% of calorie and protein needs via PO and ONS intakes Anticipated Discharge Needs: Cardiac/Consistent CHO diet Follow-Up By: 02/10/19 Additional Comments Follow for PO and ONS intakes
[2019-02-13 11:15] LABS: Hematocrit 38.7 % (30.3-42.9); Hemoglobin 12.5 gm/dl (10.1-14.3); Mean Corpuscular HGB Conc 32 % (30-34); Platelet Count 537 K/mm3 (140-440); Red Blood Count 5.79 M/mm3 (3.65-5.03); Red Cell Distribution Width 17.8 % (13.2-15.2)
[2019-02-13 11:20] LABS: Mean Corpuscular Volume 67 fl (79-97)
[2019-02-13 12:19] LABS: Anisocytosis 1+; Basophils % (Manual) 0 % (0.0-1.8); Eosinophils % (Manual) 0 % (0.0-4.3); Ovalocytes Few; Poikilocytosis 1+; Target Cells Few; Total Cells Counted 100
[2019-02-13 12:20] LABS: Platelet Estimate Consistent w Auto; Tear Drop Cells Few
[2019-02-13] MEDS: ZITHROMAX 500 MG in NACL 0.9% 250ML 250 ML IV SCH (22:16)
[2019-02-14] MEDS: MAXIPIME/NS 2 GM/100 ML 2 GM/100 ML BAG IV SCH ×4 (01:12→23:17)
[2019-02-14] MEDS: LASIX IV SCH ×2 (05:26→17:15)
[2019-02-14 05:28] LABS: Hematocrit 38.7 % (30.3-42.9); Hemoglobin 12.5 gm/dl (10.1-14.3); Mean Corpuscular HGB Conc 32 % (30-34); Platelet Count 481 K/mm3 (140-440); Red Cell Distribution Width 17.7 % (13.2-15.2)
[2019-02-14 05:29] LABS: Mean Corpuscular Volume 67 fl (79-97)
[2019-02-14 06:37] LABS: Band Neutrophils # (Manual) 0.3 K/mm3; Basophils % (Manual) 0 % (0.0-1.8); Eosinophils % (Manual) 0 % (0.0-4.3); Monocytes % (Manual) 0 % (0.0-7.3); Total Cells Counted 100
[2019-02-14 06:38] LABS: Anisocytosis 1+; Platelet Estimate Consistent w Auto; Poikilocytosis 2+; Toxic Vacuolation 1+
[2019-02-14] MEDS: HumaLOG SUB-Q SCH ×4 (08:33→22:16)
[2019-02-14] MEDS: ELIQUIS PO SCH ×2 (10:19→22:18)
[2019-02-14] MEDS: SODIUM CHLORIDE FLUSH SYRINGE 10 ML IV SCH ×2 (10:20→22:30)
--- NOTE | 2019-02-14 11:23 | Progress Note ---
Assessment and Plan Assessment and plan: LLL pneumonia. Cont. abx. F/U serial CXR in a.m. Parapneumonic effusion. Continue IV antibiotics and follow chest x-ray Sepsis. Etiology secondary to above. Continue antibiotic, lactic acid level r emains elevated but blood cultures are negative 72 hours. ID following. Persistent leukocytosis--continue to follow CBC Hyponatremia. 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 Follow BMP. Diabetes mellitus type 2. Continue Accu-Cheks and sliding scale insulin. History of DVT. Continue anticoagulation. On eliquis as an outpatient. History Interval history: No new issues Hospitalist Physical - Constitutional Vitals: Temp Pulse Resp BP Pulse Ox 97.2 F L 114 H 22 121/77 91 02/14/19 09:03 02/14/19 10:00 02/14/19 10:00 02/14/19 09:03 02/14/19 10:27 General appearance: Present: no acute distress - EENT Eyes: Present: PERRL, EOM intact ENT: hearing intact, clear oral mucosa, dentition normal - Neck Neck: Present: supple, normal ROM - Respiratory Respiratory effort: normal Respiratory: bilateral: CTA - Cardiovascular Rhythm: regular Heart Sounds: Present: S1 & S2. Absent: gallop, rub - Extremities Extremities: no ischemia, No edema, Full ROM - Abdominal General gastrointestinal: soft, non-tender, non-distended, normal bowel sounds - Integumentary Integumentary: Present: clear, warm, dry - Neurologic Neurologic: CNII-XII intact, moves all extremities Results - Labs CBC & Chem 7: 02/14/19 05:12 02/12/19 04:50 Labs: Laboratory Last Values WBC 30.1 K/mm3 (4.5-11.0) H 02/14/19 05:12 RBC 5.80 M/mm3 (3.65-5.03) H 02/14/19 05:12 Hgb 12.5 gm/dl (10.1-14.3) 02/14/19 05:12 Hct 38.7 % (30.3-42.9) 02/14/19 05:12 MCV 67 fl (79-97) L 02/14/19 05:12 MCH 22 pg (28-32) L 02/14/19 05:12 MCHC 32 % (30-34) 02/14/19 05:12 RDW 17.7 % (13.2-15.2) H 02/14/19 05:12 Plt Count 481 K/mm3 (140-440) H 02/14/19 05:12 Add Manual Diff Complete 02/14/19 05:12 Total Counted 100 02/14/19 05:12 Seg Neutrophils % Rubber Vulcanizing Machine Operator 02/13/19 10:52 Seg Neuts % (Manual) 96.0 % (40.0-70.0) H 02/14/19 05:12 1.0 % 02/14/19 05:12 3.0 % (13.4-35.0) L 02/14/19 05:12 Reactive Lymphs % (Man) 0 % 02/14/19 05:12 0 % (0.0-7.3) 02/14/19 05:12 0 % (0.0-4.3) 02/14/19 05:12 0 % (0.0-1.8) 02/14/19 05:12 0 % 02/14/19 05:12 0 % 02/14/19 05:12 0 % 02/14/19 05:12 0 % 02/14/19 05:12 Nucleated RBC % Not Reportable 02/14/19 05:12 Seg Neutrophils # Man 28.9 K/mm3 (1.8-7.7) H 02/14/19 05:12 Band Neutrophils # 0.3 K/mm3 02/14/19 05:12 0.9 K/mm3 (1.2-5.4) L 02/14/19 05:12 Abs React Lymphs (Man) 0.0 K/mm3 02/14/19 05:12 0.0 K/mm3 (0.0-0.8) 02/14/19 05:12 0.0 K/mm3 (0.0-0.4) 02/14/19 05:12 0.0 K/mm3 (0.0-0.1) 02/14/19 05:12 0.0 K/mm3 02/14/19 05:12 0.0 K/mm3 02/14/19 05:12 0.0 K/mm3 02/14/19 05:12 Blast Cells # 0.0 K/mm3 02/14/19 05:12 WBC Morphology Not Reportable 02/14/19 05:12 Hypersegmented Neuts Not Reportable 02/14/19 05:12 Hyposegmented Neuts Not Reportable 02/14/19 05:12 Hypogranular Neuts Not Reportable 02/14/19 05:12 Not Reportable 02/14/19 05:12 Not Reportable 02/14/19 05:12 1+ 02/14/19 05:12 Not Reportable 02/14/19 05:12 Not Reportable 02/14/19 05:12 Not Reportable 02/14/19 05:12 Consistent w auto 02/14/19 05:12 Not Reportable 02/14/19 05:12 Plt Clumps, EDTA Not Reportable 02/14/19 05:12 Not Reportable 02/14/19 05:12 Not Reportable 02/14/19 05:12 Not Reportable 02/14/19 05:12 Plt Morphology Comment Not Reportable 02/14/19 05:12 RBC Morphology Not Reportable 02/14/19 05:12 Dimorphic RBCs Not Reportable 02/14/19 05:12 Not Reportable 02/14/19 05:12 Not Reportable 02/14/19 05:12 2+ 02/14/19 05:12 1+ 02/14/19 05:12 1+ 02/14/19 05:12 Not Reportable 02/14/19 05:12 Not Reportable 02/14/19 05:12 Not Reportable 02/14/19 05:12 Not Reportable 02/14/19 05:12 Not Reportable 02/14/19 05:12 Not Reportable 02/14/19 05:12 Not Reportable 02/14/19 05:12 Not Reportable 02/14/19 05:12 Not Reportable 02/14/19 05:12 Not Reportable 02/14/19 05:12 Not Reportable 02/14/19 05:12 Not Reportable 02/14/19 05:12 Not Reportable 02/14/19 05:12 Not Reportable 02/14/19 05:12 Acanthocytes (Spur) Not Reportable 02/14/19 05:12 Rouleaux Not Reportable 02/14/19 05:12 Not Reportable 02/14/19 05:12 Not Reportable 02/14/19 05:12 Not Reportable 02/14/19 05:12 Not Reportable 02/14/19 05:12 Hem Pathologist Commnt No 02/14/19 05:12 PT 22.6 Sec. (12.2-14.9) H 02/09/19 18:06 INR 2.04 (0.87-1.13) H 02/09/19 18:06 APTT 40.9 Sec. (24.2-36.6) H 02/09/19 23:15 Sodium 125 mmol/L (137-145) L 02/12/19 04:50 Potassium 4.1 mmol/L (3.6-5.0) 02/12/19 04:50 Chloride 87.8 mmol/L (98-107) L 02/12/19 04:50 Carbon Dioxide 24 mmol/L (22-30) 02/12/19 04:50 17 mmol/L 02/12/19 04:50 BUN 19 mg/dL (7-17) H 02/12/19 04:50 0.3 mg/dL (0.7-1.2) L 02/12/19 04:50 Estimated GFR > 60 ml/min 02/12/19 04:50 63 % 02/12/19 04:50 Glucose 134 mg/dL (65-100) H 02/12/19 04:50 POC Glucose 148 (70-105) H 02/13/19 07:30 Lactic Acid 3.00 mmol/L (0.7-2.0) H* 02/14/19 09:52 Calcium 8.2 mg/dL (8.4-10.2) L 02/12/19 04:50 Magnesium 1.70 mg/dL (1.7-2.3) 02/09/19 23:15 0.30 mg/dL (0.1-1.2) 02/09/19 18:06 AST 18 units/L (5-40) 02/09/19 18:06 ALT 10 units/L (7-56) 02/09/19 18:06 61 units/L (35-129) 02/09/19 18:06 < 0.010 ng/mL (0.00-0.029) 02/09/19 23:15 NT-Pro-B Natriuret Pep 7069 pg/mL (0-900) H 02/09/19 18:06 6.8 g/dL (6.3-8.2) 02/09/19 18:06 2.9 g/dL (3.9-5) L 02/09/19 18:06 0.7 % 02/09/19 18:06 TSH 1.890 mlU/mL (0.270-4.200) 02/09/19 23:15 Free T4 0.89 ng/dL (0.76-1.46) 02/09/19 23:15 Active Medications - Current Medications Current Medications: Generic Name Dose Route Start Last Admin Trade Name Freq PRN Reason Stop Dose Admin Acetaminophen 650 mg 02/09/19 20:06 02/10/19 11:10 Tylenol PO 650 mg Q4H PRN Administration Pain MILD(1-3)/Fever >100.5/KEMP Apixaban 5 mg 02/10/19 10:00 02/14/19 10:19 Eliquis PO 5 mg BID DREW Administration Protocol Dextrose 50 ml 02/09/19 20:09 D50w (25gm) Syringe IV PRN PRN Hypoglycemia Furosemide 40 mg 02/10/19 06:00 02/14/19 05:26 Lasix IV 40 mg BID@0600,1800 DREW Administration Azithromycin 500 mg/ Sodium 250 mls @ 250 mls/hr 02/09/19 21:00 02/13/19 22:16 Chloride IV 250 mls/hr Q24H DREW Administration Protocol Cefepime HCl 2 gm in 100 mls @ 200 mls/hr 02/12/19 16:00 02/14/19 08:38 Maxipime/Ns 2 Gm/100 Ml IV 200 mls/hr Q8H DREW Administration Protocol Insulin Human Lispro 0 unit 02/09/19 22:00 02/14/19 08:33 Humalog SUB-Q Not Given ACHS DREW Protocol Ondansetron HCl 4 mg 02/09/19 20:06 Zofran IV Q8H PRN Nausea And Vomiting Senna/Docusate Sodium 2 tab 02/11/19 21:29 02/12/19 21:11 Senokot S PO 2 tab Q12H PRN Administration Laxative Effect Sodium Chloride 10 ml 02/09/19 22:00 02/14/19 10:20 Sodium Chloride Flush Syringe 10 Ml IV 10 ml BID DREW Administration Sodium Chloride 10 ml 02/09/19 20:06 Sodium Chloride Flush Syringe 10 Ml IV PRN PRN LINE FLUSH Nutrition/Malnutrition Assess - Dietary Evaluation Nutrition/Malnutrition Findings: Nutrition Notes Start: 02/10/19 15:31 Freq: Status: Active Protocol: Document 02/12/19 17:31 RM (Rec: 02/12/19 17:33 RM [id number]) Nutrition Notes Initial or Follow up Reassessment Current Diagnosis Diabetes,Heart Failure Other Pertinent Diagnosis LLL Pneu, SIRS Current Diet Cardiac Labs/Tests Reviewed Pertinent Medications Lasix Height 5 ft 3 in Weight 61.5 kg [place] Body Weight (kg) 52.27 BMI 24.0 Subjective/Other Information Pt stated that her appetite fluctuates and that she eats between 1/3 and 50% of her meals. Stated that she drinks the Glucerna. Percent of energy/protein needs met: 70%/60% Burn Absent Trauma Absent #1 Nutrition Diagnosis Malnutrition Diagnosis Progress(for reassessment Continues documentation) Is patient on ventilator? No Is Patient Ambulatory and/or Out of Bed Yes REE-([facility]-ambulatory/OOB) [ 1448.369 NUTR.MSJOOB] Calculation Used for Recommendations [facility] Additional Notes Protein Needs: 73-92g (1.2-1. 5g/kg) Fluid Needs: 1 ml/kcal Nutrition Intervention Change Diet Order: Cardiac/Consistent CHO Add Supplement/Snack (indicate name/kcal Glucerna strawberry BID /protein ) Provides kCal: 480 Provides Protein (gm) 20 Goal #1 Meet at least 75% of calorie and protein needs via PO and ONS intakes Anticipated Discharge Needs: Cardiac/Consistent CHO diet Follow-Up By: 02/10/19 Additional Comments Follow for PO and ONS intakes
--- NOTE | 2019-02-14 12:28 | Progress Note ---
Assessment and Plan Cultures: 02/09/19 BCx - NGTD 02/11/19 BCx - NGTD 02/12/19 Urine culture - <10K 02/12/19 Sputum culture - poor specimen A/P: 68 yo female with history of DM2, DVT on eliquis, CHF admitted with CHF exace rbation and pneumonia. 1. SIRS: still tachycardia, worsening leukocytosis and elevated lactate. DDx HAP (recent hospital admission) v/s CAP +/- ?PE (recent DVTs on Eliquis) +/- ?intra- abdominal malignancy (30Lb weight loss and recent uterine "growth" diagnosed in January 2016, she is to have a biopsy by Dr Melendez). On cefepime and azithromycin. 2. Acute respiratory insufficiency: on NC O2, stable 3. DM2 4. Hx of DVT on anticoagulation 5. Thrombocytosis: due to #1 Recs: - ordered chest CT and abdominal CT with contrast to r/o PE and malignancy - continue azithromycin and cefepime 2g q8h D3 Discussed with Dr Glenn Snider will be rounding tomorrow Brittany Canas MD [facility] ([facility]) Office [phone] Subjective Date of service: 02/14/19 Principal diagnosis: SIRS Interval history: Patient remains c/o SOB and KIRK. Denies any pain, N/V/D. Reports 30 Lb weight loss in 6 months. Objective - Exam Narrative Exam: Constitutional: awake, mild resp distress, on NC O2 Head, Ears, Nose: Normocephalic, atraumatic. External ears, nose normal Eyes: Conjunctivae/corneas clear. No icterus. No ptosis. Neck: Supple, no meningeal signs Oral: fair dentition, moist mucous membranes Cardiovascular: tachycardic Respiratory: Good air entry, clear to auscultation bilaterally GI: Soft, non-tender; bowel sounds normal. No peritoneal signs Musculoskeletal: 2+ pedal edema Skin: No rash or abscess Hem/Lymphatic: No palpable cervical or supraclavicular nodes. No lymphangitis Psych: no agitation Neurological: Moves all extremities, no focal defects - Constitutional Vitals: Vital Signs Temp Pulse Resp BP Pulse Ox 97.9 F 112 H 24 100/69 94 02/14/19 12:00 02/14/19 12:00 02/14/19 12:00 02/14/19 12:00 02/14/19 12:00 Temperature -Last 24 Hours Temperature 97.9 F Temperature 97.2 F Temperature 98.0 F Temperature 97.8 F Temperature 97.8 F Temperature 97.4 F - Labs CBC & Chem 7: 02/14/19 05:12 02/12/19 04:50 Labs: Abnormal lab results 02/13/19 02/13/19 02/13/19 Range/Units 13:37 18:03 20:28 WBC (4.5-11.0) K/mm3 RBC (3.65-5.03) M/mm3 MCV (79-97) fl MCH (28-32) pg RDW (13.2-15.2) % Plt Count (140-440) K/mm3 Seg Neuts % (Manual) (40.0-70.0) % Lymphocytes % (Manual) (13.4-35.0) % Seg Neutrophils # Man (1.8-7.7) K/mm3 Lymphocytes # (Manual) (1.2-5.4) K/mm3 Lactic Acid 3.60 H* 3.50 H* 3.70 H* (0.7-2.0) mmol/L 02/14/19 02/14/19 02/14/19 Range/Units 05:12 05:12 06:36 WBC 30.1 H (4.5-11.0) K/mm3 RBC 5.80 H (3.65-5.03) M/mm3 MCV 67 L (79-97) fl MCH 22 L (28-32) pg RDW 17.7 H (13.2-15.2) % Plt Count 481 H (140-440) K/mm3 Seg Neuts % (Manual) 96.0 H (40.0-70.0) % Lymphocytes % (Manual) 3.0 L (13.4-35.0) % Seg Neutrophils # Man 28.9 H (1.8-7.7) K/mm3 Lymphocytes # (Manual) 0.9 L (1.2-5.4) K/mm3 Lactic Acid 2.60 H* 3.70 H* (0.7-2.0) mmol/L 02/14/19 02/14/19 Range/Units 08:12 09:52 WBC (4.5-11.0) K/mm3 RBC (3.65-5.03) M/mm3 MCV (79-97) fl MCH (28-32) pg RDW (13.2-15.2) % Plt Count (140-440) K/mm3 Seg Neuts % (Manual) (40.0-70.0) % Lymphocytes % (Manual) (13.4-35.0) % Seg Neutrophils # Man (1.8-7.7) K/mm3 Lymphocytes # (Manual) (1.2-5.4) K/mm3 Lactic Acid 3.00 H* 3.00 H* (0.7-2.0) mmol/L
--- NOTE | 2019-02-14 17:24 | Cat Scan Report ---
CTA CHEST WITH IV CONTRAST INDICATION: worsening SOB, tachycardia and leukocytosis r/o PE. TECHNIQUE: Axial CT images were obtained through the chest after injection of IV contrast. 3 plane MIP reconstru ctions were produced. All CT scans at this location are performed using CT dose reduction for ALARA b y means of automated exposure control. COMPARISON: CT 01/10/2019. FINDINGS: Pulmonary Arteries: No acute PTE is seen. Previously seen small peripheral PTE are no longer visualiz ed. Thoracic Aorta: No acute abnormality. Heart: Right-sided cardiomegaly is again noted with reflux of contrast from the right atrium into the hepatic veins. Coronary Arteries: No significant calcification. Lungs: Previously seen 6 mm pulmonary nodule within the medial anterior left upper lobe is slightly d ecreased in size measuring 7 mm (previously 6 mm). Additional noncalcified nodules within both lungs have also increased in size. There are a few new punctate nodules. Pleura: Small right pleural effusion is stable. There is a new left pleural effusion. No pneumothorax . Lymph Nodes: No significant adenopathy. Additional Findings: Diffuse anasarca is again noted. Skeletal Structures: No significant osseous abnormality. IMPRESSION: 1. No CT evidence for pulmonary embolism. 2. Previously seen bilateral noncalcified pulmonary nodules have slightly increased in size and numbe r since the exam from just one month ago. These are concerning for metastatic nodules given their inc rease in size. 3. Small right pleural effusion is stable. There is a new small left pleural effusion. 4. Additional incidental findings as above, unchanged. Signer Name: Maximo Harmon MD Signed: 02/14/2019 5:20 PM Workstation Name: [employer]
--- NOTE | 2019-02-14 17:30 | Cat Scan Report ---
CT ABDOMEN AND PELVIS WITH IV CONTRAST INDICATION: worsening leukocytosis, weight loss 30L mass. COMPARISON: None available. TECHNIQUE: All CT scans at this facility use dose modulation, automated exposure control, iterative reconstructi on or weight based dosing, when appropriate, to reduce radiation dose to as low as reasonably achieva ble. FINDINGS: Lung Bases: There are small bibasilar pleural effusions with compressive atelectasis in the included bases. Cardiomegaly is noted. Skeletal System: No acute abnormality. ABDOMEN: Liver: Normal. Gallbladder: Contracted Bile Ducts: Normal. Pancreas: Normal. Spleen: There is a 1.4 cm hypodense lesion within the spleen on axial image 59. Adrenals: There is a 1.7 cm nodule in the region of the left adrenal on axial image 64. Right Kidney: Normal. Left Kidney: Normal. Stomach and Bowel: Normal. Lymph Nodes: No significant adenopathy. Aorta: No significant abnormality. Additional Findings: There is large volume ascites. There is extensive carcinomatosis along the oment um and peritoneum. PELVIS: Colon: Normal aside from constipation. Urinary Bladder and Distal Ureters: Normal. Appendix: Not well visualized. Lymph Nodes: No significant adenopathy. Additional Findings: There is a complex cystic lesion in the right hemipelvis which is likely ovarian in etiology. This measures 5.1 x 5.6 cm on axial image 51. There is a large volume pelvic ascites wi th extensive carcinomatosis in the pelvis. IMPRESSION: 1. 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 There is lar ge volume ascites with extensive omental/peritoneal carcinomatosis throughout. 2. Somewhat exophytic hypodense lesion along the anteromedial spleen could be a serosal implant or in trinsic splenic metastatic lesion. Nodular left adrenal lesion is concerning for metastatic implant a s well. 3. Incidental findings, as above. Signer Name: Maximo Harmon MD Signed: 02/14/2019 5:25 PM Workstation Name: [id number]
[2019-02-14] MEDS: SENOKOT S PO PRN (18:26)
[2019-02-14] MEDS: ZITHROMAX 500 MG in NACL 0.9% 250ML 250 ML IV SCH (22:30)
[2019-02-14] MEDS: SODIUM CHLORIDE FLUSH SYRINGE 10 ML IV PRN (23:18)
[2019-02-15] MEDS: SODIUM CHLORIDE FLUSH SYRINGE 10 ML IV PRN ×2 (05:26→21:59)
[2019-02-15] MEDS: LASIX IV SCH ×2 (05:26→17:10)
[2019-02-15 06:02] LABS: Hematocrit 37.7 % (30.3-42.9); Hemoglobin 12.1 gm/dl (10.1-14.3); Mean Corpuscular HGB Conc 32 % (30-34); Platelet Count 435 K/mm3 (140-440); Red Blood Count 5.56 M/mm3 (3.65-5.03); Red Cell Distribution Width 17.8 % (13.2-15.2)
[2019-02-15 06:03] LABS: Mean Corpuscular Volume 68 fl (79-97)
[2019-02-15 06:18] LABS: BUN/Creatinine Ratio 65; Blood Urea Nitrogen 26 mg/dL (7-17); Calcium 8.4 mg/dL (8.4-10.2); Hemolysis Index 77
[2019-02-15] MEDS: MAXIPIME/NS 2 GM/100 ML 2 GM/100 ML BAG IV SCH ×2 (08:30→17:09)
[2019-02-15] MEDS: HumaLOG SUB-Q SCH ×4 (08:40→21:58)
[2019-02-15] MEDS: ELIQUIS PO SCH ×2 (09:47→21:58)
[2019-02-15] MEDS: SODIUM CHLORIDE FLUSH SYRINGE 10 ML IV SCH ×2 (09:53→21:58)
--- NOTE | 2019-02-15 10:13 | Progress Note ---
Assessment and Plan Assessment and plan: Malignant ovarian neoplasm. CT scan reveals 5.6 cm ovarian malignant neoplasm with possible metastasis to the spleen. CT scan also shows pelvic ascites with carcinomatosis. Consult Dr. Edvin Melendez. Ascites. As above. Acute hypoxic respiratory failure. Continue O2 and BiPAP as clinically indicat ed. Etiology secondary to pneumonia/pleural effusion. LLL pneumonia. Cont. abx. F/U serial CXR in a.m. Parapneumonic effusion. Continue IV antibiotics and follow chest x-ray Pulmonary nodule. ? Metastasis Sepsis. Etiology secondary to above. Continue antibiotic, lactic acid level remains elevated but blood cultures are negative 72 hours. ID following. Persistent leukocytosis--continue to follow CBC Hyponatremia. 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 Follow BMP. Diabetes mellitus type 2. Continue Accu-Cheks and sliding scale insulin. History of DVT. Continue anticoagulation. Pt was on eliquis as an outpatient. History Interval history: 68 yo F PMhx DM2, DVT on eliquis, CHF presented to hospital complaining of worse migdalia weakness, SOB, bilateral LE edema, and poor exercise tolerance. She notes these symptoms began approximately 4-5 days prior to admission and continued to progress leading to her presentation. After being seen in the ED it was determined she had a CHF exacerbation as well as concern for an LLL pneumonia. She otherwise denied symptoms of systemic infection such as fevers, sweats, chills. She was seen in the ER approximately 1 month ago with significant bilateral DVTs, and was then placed on Eliquis. She complains of cough with some sputum production that is yellow. Afebrile since admission with an elevated white count. ID consulted for persistent WBC and sepsis. Blood cultures on 02/09 and 02/11 are NGTD. CXR showed a small L pleural effusion and a repeat showed bilateral atelectasis. Pt with significant ascites and LE edema. Pt later reported "growth" that is supposed to be removed later this month by Dr. Melendez ([employer]). CTA chest negative for PE. However CT A/P revealed 5.6 cm malignant neoplasm with possible splenic metastasis. Also, Pelvic ascites with carcinomatosis Hospitalist Physical - Constitutional Vitals: Temp Pulse Resp BP Pulse Ox 97.5 F L 93 H 18 106/75 100 02/15/19 07:48 02/15/19 07:48 02/15/19 07:48 08/12/19 07:48 02/15/19 07:48 General appearance: Present: no acute distress - EENT Eyes: Present: PERRL, EOM intact ENT: hearing intact, clear oral mucosa, dentition normal - Neck Neck: Present: supple, normal ROM - Respiratory Respiratory effort: normal Respiratory: bilateral: CTA - Cardiovascular Rhythm: regular Heart Sounds: Present: S1 & S2. Absent: gallop, rub - Extremities Extremities: no ischemia, Full ROM Extremity abnormal: edema (3+) - Abdominal General gastrointestinal: soft, non-tender, distended, normal bowel sounds, other (ascites) - Integumentary Integumentary: Present: clear, warm, dry - Neurologic Neurologic: CNII-XII intact, moves all extremities Results - Labs CBC & Chem 7: 02/15/19 04:48 02/15/19 04:48 Labs: Laboratory Last Values WBC 29.0 K/mm3 (4.5-11.0) H 02/15/19 04:48 RBC 5.56 M/mm3 (3.65-5.03) H 02/15/19 04:48 Hgb 12.1 gm/dl (10.1-14.3) 02/15/19 04:48 Hct 37.7 % (30.3-42.9) 02/15/19 04:48 MCV 68 fl (79-97) L 02/15/19 04:48 MCH 22 pg (28-32) L 02/15/19 04:48 MCHC 32 % (30-34) 02/15/19 04:48 RDW 17.8 % (13.2-15.2) H 02/15/19 04:48 Plt Count 435 K/mm3 (140-440) 02/15/19 04:48 Add Manual Diff Complete 02/14/19 05:12 Total Counted 100 02/14/19 05:12 Seg Neutrophils % Welder Plastic 02/15/19 04:48 Seg Neuts % (Manual) 96.0 % (40.0-70.0) H 02/14/19 05:12 1.0 % 02/14/19 05:12 3.0 % (13.4-35.0) L 02/14/19 05:12 Reactive Lymphs % (Man) 0 % 02/14/19 05:12 0 % (0.0-7.3) 02/14/19 05:12 0 % (0.0-4.3) 02/14/19 05:12 0 % (0.0-1.8) 02/14/19 05:12 0 % 02/14/19 05:12 0 % 02/14/19 05:12 0 % 02/14/19 05:12 0 % 02/14/19 05:12 Nucleated RBC % Not Reportable 02/14/19 05:12 Seg Neutrophils # Man 28.9 K/mm3 (1.8-7.7) H 02/14/19 05:12 Band Neutrophils # 0.3 K/mm3 02/14/19 05:12 0.9 K/mm3 (1.2-5.4) L 02/14/19 05:12 Abs React Lymphs (Man) 0.0 K/mm3 02/14/19 05:12 0.0 K/mm3 (0.0-0.8) 02/14/19 05:12 0.0 K/mm3 (0.0-0.4) 02/14/19 05:12 0.0 K/mm3 (0.0-0.1) 02/14/19 05:12 0.0 K/mm3 02/14/19 05:12 0.0 K/mm3 02/14/19 05:12 0.0 K/mm3 02/14/19 05:12 Blast Cells # 0.0 K/mm3 02/14/19 05:12 WBC Morphology Not Reportable 02/14/19 05:12 Hypersegmented Neuts Not Reportable 02/14/19 05:12 Hyposegmented Neuts Not Reportable 02/14/19 05:12 Hypogranular Neuts Not Reportable 02/14/19 05:12 Not Reportable 02/14/19 05:12 Not Reportable 02/14/19 05:12 1+ 02/14/19 05:12 Not Reportable 02/14/19 05:12 Not Reportable 02/14/19 05:12 Not Reportable 02/14/19 05:12 Consistent w auto 02/14/19 05:12 Not Reportable 02/14/19 05:12 Plt Clumps, EDTA Not Reportable 02/14/19 05:12 Not Reportable 02/14/19 05:12 Not Reportable 02/14/19 05:12 Not Reportable 02/14/19 05:12 Plt Morphology Comment Not Reportable 02/14/19 05:12 RBC Morphology Not Reportable 02/14/19 05:12 Dimorphic RBCs Not Reportable 02/14/19 05:12 Not Reportable 02/14/19 05:12 Not Reportable 02/14/19 05:12 2+ 02/14/19 05:12 1+ 02/14/19 05:12 1+ 02/14/19 05:12 Not Reportable 02/14/19 05:12 Not Reportable 02/14/19 05:12 Not Reportable 02/14/19 05:12 Not Reportable 02/14/19 05:12 Not Reportable 02/14/19 05:12 Not Reportable 02/14/19 05:12 Not Reportable 02/14/19 05:12 Not Reportable 02/14/19 05:12 Not Reportable 02/14/19 05:12 Not Reportable 02/14/19 05:12 Not Reportable 02/14/19 05:12 Not Reportable 02/14/19 05:12 Not Reportable 02/14/19 05:12 Not Reportable 02/14/19 05:12 Acanthocytes (Spur) Not Reportable 02/14/19 05:12 Rouleaux Not Reportable 02/14/19 05:12 Not Reportable 02/14/19 05:12 Not Reportable 02/14/19 05:12 Not Reportable 02/14/19 05:12 Not Reportable 02/14/19 05:12 Hem Pathologist Commnt No 02/14/19 05:12 PT 22.6 Sec. (12.2-14.9) H 02/09/19 18:06 INR 2.04 (0.87-1.13) H 02/09/19 18:06 APTT 40.9 Sec. (24.2-36.6) H 02/09/19 23:15 Sodium 124 mmol/L (137-145) L 02/15/19 04:48 Potassium 5.2 mmol/L (3.6-5.0) H D 02/15/19 04:48 Chloride 84.8 mmol/L (98-107) L 02/15/19 04:48 Carbon Dioxide 19 mmol/L (22-30) L 02/15/19 04:48 25 mmol/L 02/15/19 04:48 BUN 26 mg/dL (7-17) H 02/15/19 04:48 0.4 mg/dL (0.7-1.2) L 02/15/19 04:48 Estimated GFR > 60 ml/min 02/15/19 04:48 65 % 02/15/19 04:48 Glucose 180 mg/dL (65-100) H 02/15/19 04:48 POC Glucose 312 (70-105) H 02/14/19 16:00 Lactic Acid 3.00 mmol/L (0.7-2.0) H* 02/14/19 09:52 Calcium 8.4 mg/dL (8.4-10.2) 02/15/19 04:48 Magnesium 1.70 mg/dL (1.7-2.3) 02/09/19 23:15 0.30 mg/dL (0.1-1.2) 02/09/19 18:06 AST 18 units/L (5-40) 02/09/19 18:06 ALT 10 units/L (7-56) 02/09/19 18:06 61 units/L (35-129) 02/09/19 18:06 < 0.010 ng/mL (0.00-0.029) 02/09/19 23:15 NT-Pro-B Natriuret Pep 7069 pg/mL (0-900) H 02/09/19 18:06 6.8 g/dL (6.3-8.2) 02/09/19 18:06 2.9 g/dL (3.9-5) L 02/09/19 18:06 0.7 % 02/09/19 18:06 TSH 1.890 mlU/mL (0.270-4.200) 02/09/19 23:15 Free T4 0.89 ng/dL (0.76-1.46) 02/09/19 23:15 Active Medications - Current Medications Current Medications: Generic Name Dose Route Start Last Admin Trade Name Freq PRN Reason Stop Dose Admin Acetaminophen 650 mg 02/09/19 20:06 02/10/19 11:10 Tylenol PO 650 mg Q4H PRN Administration Pain MILD(1-3)/Fever >100.5/KEMP Apixaban 5 mg 02/10/19 10:00 02/15/19 09:47 Eliquis PO 5 mg BID DREW Administration Protocol Dextrose 50 ml 02/09/19 20:09 D50w (25gm) Syringe IV PRN PRN Hypoglycemia Furosemide 40 mg 02/10/19 06:00 02/15/19 05:26 Lasix IV 40 mg BID@0600,1800 DREW Administration Azithromycin 500 mg/ Sodium 250 mls @ 250 mls/hr 02/09/19 21:00 02/14/19 22:30 Chloride IV 250 mls/hr Q24H DREW Administration Protocol Cefepime HCl 2 gm in 100 mls @ 200 mls/hr 02/12/19 16:00 02/15/19 08:30 Maxipime/Ns 2 Gm/100 Ml IV 200 mls/hr Q8H DREW Administration Protocol Insulin Human Lispro 0 unit 02/09/19 22:00 02/15/19 08:40 Humalog SUB-Q 3 unit ACHS DREW Administration Protocol Ondansetron HCl 4 mg 02/09/19 20:06 Zofran IV Q8H PRN Nausea And Vomiting Senna/Docusate Sodium 2 tab 02/11/19 21:29 02/14/19 18:26 Senokot S PO 2 tab Q12H PRN Administration Laxative Effect Sodium Chloride 10 ml 02/09/19 22:00 02/15/19 09:53 Sodium Chloride Flush Syringe 10 Ml IV 10 ml BID DREW Administration Sodium Chloride 10 ml 02/09/19 20:06 02/15/19 05:26 Sodium Chloride Flush Syringe 10 Ml IV 10 ml PRN PRN Administration LINE FLUSH Nutrition/Malnutrition Assess - Dietary Evaluation Nutrition/Malnutrition Findings: Nutrition Notes Start: 02/10/19 15:31 Freq: Status: Active Protocol: Document 02/12/19 17:31 RM (Rec: 02/12/19 17:33 RM [id number]) Nutrition Notes Initial or Follow up Reassessment Current Diagnosis Diabetes,Heart Failure Other Pertinent Diagnosis LLL Pneu, SIRS Current Diet Cardiac Labs/Tests Reviewed Pertinent Medications Lasix Height 5 ft 3 in Weight 61.5 kg [place] Body Weight (kg) 52.27 BMI 24.0 Subjective/Other Information Pt stated that her appetite fluctuates and that she eats between 1/3 and 50% of her meals. Stated that she drinks the Glucerna. Percent of energy/protein needs met: 70%/60% Burn Absent Trauma Absent #1 Nutrition Diagnosis Malnutrition Diagnosis Progress(for reassessment Continues documentation) Is patient on ventilator? No Is Patient Ambulatory and/or Out of Bed Yes REE-([facility]-ambulatory/OOB) [ 1448.369 [id number]] Calculation Used for Recommendations [facility] Additional Notes Protein Needs: 73-92g (1.2-1. 5g/kg) Fluid Needs: 1 ml/kcal Nutrition Intervention Change Diet Order: Cardiac/Consistent CHO Add Supplement/Snack (indicate name/kcal Glucerna strawberry BID /protein ) Provides kCal: 480 Provides Protein (gm) 20 Goal #1 Meet at least 75% of calorie and protein needs via PO and ONS intakes Anticipated Discharge Needs: Cardiac/Consistent CHO diet Follow-Up By: 02/10/19 Additional Comments Follow for PO and ONS intakes
[2019-02-15 10:38] LABS: Total Cells Counted 100
[2019-02-15 10:39] LABS: Band Neutrophils # (Manual) 0.9 K/mm3; Basophils % (Manual) 0 % (0.0-1.8); Monocytes % (Manual) 0 % (0.0-7.3)
[2019-02-15 10:40] LABS: Anisocytosis 1+; Hypochromasia 2+
[2019-02-15 10:41] LABS: Platelet Estimate Consistent w Auto; Poikilocytosis Few; Target Cells Few
--- NOTE | 2019-02-15 11:34 | Progress Note ---
Assessment and Plan Cultures: 02/09/19 BCx - NGTD 02/11/19 BCx - NGTD 02/12/19 Urine culture - <10K 02/12/19 Sputum culture - in progress A/P: 68 yo female with history of DM2, DVT on eliquis, CHF admitted with CHF exacerba tion and pneumonia. 1. SIRS: still tachycardia, worsening leukocytosis and elevated lactate. DDx HAP (recent hospital admission) v/s CAP +/- ?PE (recent DVTs on Eliquis) +/- ?intra- abdominal malignancy (30Lb weight loss and recent uterine "growth" diagnosed in January 2016, she is to have a biopsy by Dr Melendez). CT abdomen and pelvis 5.6 cm complex cystic lesion within the pelvis is likely ovarian malignant neoplasm. Somewhat exophytic hypodense lesion along the anteromedial spleen could be a serosal implant or intrinsic splenic metastatic lesion. Nodular left adrenal lesion is concerning for metastatisis. On cefepime and azithromycin. 2. Acute respiratory insufficiency: on NC O2, stable. No CT evidence for pulmonary embolism. Small right pleural effusion is stable. There is a new small left pleural effusion. 3. DM2 4. Hx of DVT on anticoagulation 5. Thrombocytosis: due to #1 Recs: - continue azithromycin and cefepime 2g q8h D4 [facility] M: [phone] O:[phone] Subjective Date of service: 02/15/19 Principal diagnosis: SIRS Interval history: Patient seen and examined. Sitting up in bed eating. Reports bilateral leg tenderness. No fevers. Objective - Exam Narrative Exam: Constitutional: Awake. Alert. No acute distress. Head, Ears, Nose: Normocephalic, atraumatic. External ears, nose normal Eyes: Conjunctivae/corneas clear. No icterus. No ptosis. Neck: Supple, no meningeal signs Oral: fair dentition, moist mucous membranes Cardiovascular: S1, S2 normal. Normal rhythm Respiratory: Good air entry, clear to auscultation bilaterally GI: Soft, non-tender; bowel sounds normal. No peritoneal signs Musculoskeletal: Bilateral lower extremity redness and edema Skin: No rash or abscess Hem/Lymphatic: No palpable cervical or supraclavicular nodes. No lymphangitis Psych: no agitation, calm Neurological: Moves all extremities, no focal defects - Constitutional Vitals: Vital Signs Temp Pulse Resp BP Pulse Ox 97.5 F L 93 H 18 106/75 100 02/15/19 07:48 02/15/19 07:48 02/15/19 07:48 02/15/19 07:48 02/15/19 07:48 Temperature -Last 24 Hours Temperature 97.5 F Temperature 98.0 F Temperature 98.0 F Temperature 98.0 F Temperature 98.1 F Temperature 97.9 F - Labs CBC & Chem 7: 02/15/19 04:48 02/15/19 04:48 Labs: Abnormal lab results 02/13/19 02/13/19 02/13/19 Range/Units 12:50 16:45 20:34 WBC (4.5-11.0) K/mm3 RBC (3.65-5.03) M/mm3 MCV (79-97) fl MCH (28-32) pg RDW (13.2-15.2) % Seg Neuts % (Manual) (40.0-70.0) % Lymphocytes % (Manual) (13.4-35.0) % Seg Neutrophils # Man (1.8-7.7) K/mm3 Lymphocytes # (Manual) (1.2-5.4) K/mm3 Sodium (137-145) mmol/L Potassium (3.6-5.0) mmol/L Chloride (98-107) mmol/L Carbon Dioxide (22-30) mmol/L BUN (7-17) mg/dL Creatinine (0.7-1.2) mg/dL Glucose (65-100) mg/dL POC Glucose 315 H 208 H 128 H (70-105) 02/14/19 02/14/19 02/14/19 Range/Units 07:39 12:21 16:00 WBC (4.5-11.0) K/mm3 RBC (3.65-5.03) M/mm3 MCV (79-97) fl MCH (28-32) pg RDW (13.2-15.2) % Seg Neuts % (Manual) (40.0-70.0) % Lymphocytes % (Manual) (13.4-35.0) % Seg Neutrophils # Man (1.8-7.7) K/mm3 Lymphocytes # (Manual) (1.2-5.4) K/mm3 Sodium (137-145) mmol/L Potassium (3.6-5.0) mmol/L Chloride (98-107) mmol/L Carbon Dioxide (22-30) mmol/L BUN (7-17) mg/dL Creatinine (0.7-1.2) mg/dL Glucose (65-100) mg/dL POC Glucose 137 H 225 H 312 H (70-105) 02/15/19 02/15/19 Range/Units 04:48 04:48 WBC 29.0 H (4.5-11.0) K/mm3 RBC 5.56 H (3.65-5.03) M/mm3 MCV 68 L (79-97) fl MCH 22 L (28-32) pg RDW 17.8 H (13.2-15.2) % Seg Neuts % (Manual) 95.0 H (40.0-70.0) % Lymphocytes % (Manual) 0 L (13.4-35.0) % Seg Neutrophils # Man 27.6 H (1.8-7.7) K/mm3 Lymphocytes # (Manual) 0.0 L (1.2-5.4) K/mm3 Sodium 124 L (137-145) mmol/L Potassium 5.2 H D (3.6-5.0) mmol/L Chloride 84.8 L (98-107) mmol/L Carbon Dioxide 19 L (22-30) mmol/L BUN 26 H (7-17) mg/dL Creatinine 0.4 L (0.7-1.2) mg/dL Glucose 180 H (65-100) mg/dL POC Glucose (70-105)
[2019-02-15] MEDS: ZITHROMAX 500 MG in NACL 0.9% 250ML 250 ML IV SCH (21:58)
[2019-02-16] MEDS: MAXIPIME/NS 2 GM/100 ML 2 GM/100 ML BAG IV SCH ×4 (00:35→19:38)
[2019-02-16] MEDS: SODIUM CHLORIDE FLUSH SYRINGE 10 ML IV PRN ×2 (00:35→05:22)
[2019-02-16] MEDS: LASIX IV SCH ×2 (05:22→17:34)
[2019-02-16] MEDS ORDERED: KIONEX PO NR (08:00)
[2019-02-16 08:16] LABS: Hematocrit 35.8 % (30.3-42.9); Hemoglobin 11.5 gm/dl (10.1-14.3); Mean Corpuscular HGB Conc 32 % (30-34); Platelet Count 433 K/mm3 (140-440); Red Blood Count 5.34 M/mm3 (3.65-5.03); Red Cell Distribution Width 17.5 % (13.2-15.2)
[2019-02-16 08:32] LABS: BUN/Creatinine Ratio 78; Blood Urea Nitrogen 31 mg/dL (7-17); Calcium 8.7 mg/dL (8.4-10.2); Hemolysis Index 9
[2019-02-16 08:38] LABS: Mean Corpuscular Volume 67 fl (79-97)
[2019-02-16] MEDS ORDERED: KIONEX ONE (09:34)
--- NOTE | 2019-02-16 09:48 | Consultation ---
History of Present Illness - Reason for Consult Consult date: 02/16/19 - History of Present Illness Mrs. Moss is a 68yo with hx of DVT/PE on chronic anticoagulation and CHF, who presented to the ED with a chief complaint of swelling. She states that she is retaining fluid in the lower extremities and abdomen. She reports shortness of breath, KIRK and orthopnea. At admission, patient was noted to have Na 123. She was diuresed with IV lasix. She is also receiving abx for PNA. Hyponatremia has failed to improve prompting nephrology consultation. Past History Past Medical History: diabetes, DVT, heart failure Past Surgical History: Other (Eye surgery) Social history: single. denies: smoking, alcohol abuse, prescription drug abuse, IV drug use Family history: hypertension Medications and Allergies Allergies Allergy/AdvReac Type Severity Reaction Status Date / Time No Known Allergies Allergy Verified 01/15/19 14:39 Home Medications Medication Instructions Recorded Confirmed Last Taken Type metFORMIN [Glucophage] 500 mg PO BID 01/10/19 02/09/19 Unknown History Apixaban [Eliquis] 2 tab PO BID #26 tablet 01/12/19 02/09/19 Unknown Rx Furosemide [Lasix] 20 mg PO BID 02/09/19 02/09/19 Unknown History Active Meds: Active Medications Acetaminophen (Tylenol) 650 mg PO Q4H PRN PRN Reason: Pain MILD(1-3)/Fever >100.5/KEMP Last Admin: 02/10/19 11:10 Dose: 650 mg Documented by: Apixaban (Eliquis) 5 mg PO BID DREW; Protocol Last Admin: 02/15/19 21:58 Dose: 5 mg Documented by: Dextrose (D50w (25gm) Syringe) 50 ml IV PRN PRN PRN Reason: Hypoglycemia Furosemide (Lasix) 40 mg IV BID@0600,1800 DREW Last Admin: 02/16/19 05:22 Dose: 40 mg Documented by: Azithromycin 500 mg/ Sodium (Chloride) 250 mls @ 250 mls/hr IV Q24H DREW; Protoc ol Last Admin: 02/15/19 21:58 Dose: 250 mls/hr Documented by: Cefepime HCl (Maxipime/Ns 2 Gm/100 Ml) 2 gm in 100 mls @ 200 mls/hr IV Q8H DREW; Protocol Last Admin: 02/16/19 00:35 Dose: 200 mls/hr Documented by: Insulin Human Lispro (Humalog) 0 unit SUB-Q ACHS DREW; Protocol Last Admin: 02/15/19 21:58 Dose: Not Given Documented by: Ondansetron HCl (Zofran) 4 mg IV Q8H PRN PRN Reason: Nausea And Vomiting Senna/Docusate Sodium (Senokot S) 2 tab PO Q12H PRN PRN Reason: Laxative Effect Last Admin: 02/14/19 18:26 Dose: 2 tab Documented by: Sodium Chloride (Sodium Chloride Flush Syringe 10 Ml) 10 ml IV BID DREW Last Admin: 02/15/19 21:58 Dose: 10 ml Documented by: Sodium Chloride (Sodium Chloride Flush Syringe 10 Ml) 10 ml IV PRN PRN PRN Reason: LINE FLUSH Last Admin: 02/16/19 05:22 Dose: 10 ml Documented by: Review of Systems All systems: negative Exam - Vital Signs Vital signs: Vital Signs Pulse Resp BP Pulse Ox 116 H 18 107/71 97 02/09/19 17:30 02/09/19 17:30 02/09/19 17:30 02/09/19 17:30 - General Appearance General appearance: chronically ill EENT: ATNC Respiratory: Decreased Breath Sounds Heart: regular, tachycardia Gastrointestinal: Present: distended. Absent: tenderness Integumentary: no rash, warm and dry Neurologic: no focal deficit Musculoskeletal: Present: other (1+ edema) Psychiatric: cooperative Results - Lab Results 02/16/19 07:19 02/16/19 07:19 Most recent lab results Calcium 8.7 mg/dL (8.4-10.2) 02/16/19 07:19 Magnesium 1.70 mg/dL (1.7-2.3) 02/09/19 23:15 Assessment and Plan Impression: * Hyponatremia * Hyperkalemia - resolved * Ovarian mass --CT w/ 5.6 ovarian neoplasm, omental/peritoneal carcinomatosis, metastatic disease involving spleen, left adrenal gland * Cor pulmonale * Abdominal ascites Plan: * Will obtain urine lytes, urine and serum Osm * Obtain random cortisol * Start Tolvaptan - LFTs wnl on admission, CT without liver involvement; monitor LFTs * Diuresis per cardiology * Abx per primary team * Oncology consultation is pending * Strict I/O * Overall prognosis is guarded
--- NOTE | 2019-02-16 09:54 | Progress Note ---
Assessment and Plan Assessment and plan: Likely Malignant ovarian neoplasm. CT scan reveals 5.6 cm ovarian mass likely malignant neoplasm with possible metastasis to the spleen. CT scan also shows pelvic ascites with carcinomatosis. Consulted Dr. Edvin Melendez. Consult Dr. Li Ascites. As above. Acute hypoxic respiratory failure. Continue O2 and BiPAP as clinically indicated. Etiology secondary to pneumonia/pleural effusion. LLL pneumonia. Cont. abx. F/U serial CXR in a.m. Parapneumonic effusion. Continue IV antibiotics and follow chest x-ray Pulmonary nodule. ? Metastasis Sepsis. Etiology secondary to above. Continue antibiotic, lactic acid level remains elevated but blood cultures are negative 72 hours. ID following. Persistent leukocytosis--continue to follow CBC Hyponatremia. 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 Follow BMP. Consult nephrology. I discussed case with Nephrology Diabetes mellitus type 2. Continue Accu-Cheks and sliding scale insulin. History of DVT. Continue anticoagulation. Pt was on eliquis as an outpatient. I discussed with daughter at bedside History Interval history: Abdominal swelling Swelling of lower extremities Hospitalist Physical - Physical exam Narrative exam: Gen: Not in acute distress, lying in bed, HEENT: Normocephalic, atraumatic Neck: supple, no JVD Heart: S1 and S2 reg, no murmurs, rubs or gallop Lungs: Clear, no crackles, no rhonchi Abd: soft, firm, mild distended, normal BS, Ext: Bilateral lower ext edema, no clubbing, Neuro: Awake,alert, oriented - Constitutional Vitals: Temp Pulse Resp BP Pulse Ox 98.1 F 126 H 16 93/63 90 02/16/19 08:39 02/16/19 08:39 02/16/19 08:39 02/16/19 08:39 02/16/19 08:39 General appearance: Present: no acute distress Results - Labs CBC & Chem 7: 02/16/19 07:19 02/16/19 07:19 Labs: Laboratory Last Values WBC 27.5 K/mm3 (4.5-11.0) H 02/16/19 07:19 RBC 5.34 M/mm3 (3.65-5.03) H 02/16/19 07:19 Hgb 11.5 gm/dl (10.1-14.3) 02/16/19 07:19 Hct 35.8 % (30.3-42.9) 02/16/19 07:19 MCV 67 fl (79-97) L 02/16/19 07:19 MCH 22 pg (28-32) L 02/16/19 07:19 MCHC 32 % (30-34) 02/16/19 07:19 RDW 17.5 % (13.2-15.2) H 02/16/19 07:19 Plt Count 433 K/mm3 (140-440) 02/16/19 07:19 Add Manual Diff Complete 02/15/19 04:48 Total Counted 100 02/15/19 04:48 Seg Neutrophils % Operations And Maintenance Supervisor 02/16/19 07:19 Seg Neuts % (Manual) 95.0 % (40.0-70.0) H 02/15/19 04:48 3.0 % 02/15/19 04:48 0 % (13.4-35.0) L 02/15/19 04:48 Reactive Lymphs % (Man) 1.0 % 02/15/19 04:48 0 % (0.0-7.3) 02/15/19 04:48 1.0 % (0.0-4.3) 02/15/19 04:48 0 % (0.0-1.8) 02/15/19 04:48 0 % 02/15/19 04:48 0 % 02/15/19 04:48 0 % 02/15/19 04:48 0 % 02/15/19 04:48 Nucleated RBC % Not Reportable 02/15/19 04:48 Seg Neutrophils # Man 27.6 K/mm3 (1.8-7.7) H 02/15/19 04:48 Band Neutrophils # 0.9 K/mm3 02/15/19 04:48 0.0 K/mm3 (1.2-5.4) L 02/15/19 04:48 Abs React Lymphs (Man) 0.3 K/mm3 02/15/19 04:48 0.0 K/mm3 (0.0-0.8) 02/15/19 04:48 0.3 K/mm3 (0.0-0.4) 02/15/19 04:48 0.0 K/mm3 (0.0-0.1) 02/15/19 04:48 0.0 K/mm3 02/15/19 04:48 0.0 K/mm3 02/15/19 04:48 0.0 K/mm3 02/15/19 04:48 Blast Cells # 0.0 K/mm3 02/15/19 04:48 WBC Morphology Not Reportable 02/15/19 04:48 Hypersegmented Neuts Not Reportable 02/15/19 04:48 Hyposegmented Neuts Not Reportable 02/15/19 04:48 Hypogranular Neuts Not Reportable 02/15/19 04:48 Not Reportable 02/15/19 04:48 Not Reportable 02/15/19 04:48 Not Reportable 02/15/19 04:48 Not Reportable 02/15/19 04:48 Not Reportable 02/15/19 04:48 Not Reportable 02/15/19 04:48 Consistent w auto 02/15/19 04:48 Not Reportable 02/15/19 04:48 Plt Clumps, EDTA Not Reportable 02/15/19 04:48 Not Reportable 02/15/19 04:48 Not Reportable 02/15/19 04:48 Not Reportable 02/15/19 04:48 Plt Morphology Comment Not Reportable 02/15/19 04:48 RBC Morphology Not Reportable 02/15/19 04:48 Dimorphic RBCs Not Reportable 02/15/19 04:48 Not Reportable 02/15/19 04:48 2+ 02/15/19 04:48 Few 02/15/19 04:48 1+ 02/15/19 04:48 1+ 02/15/19 04:48 Not Reportable 02/15/19 04:48 Not Reportable 02/15/19 04:48 Not Reportable 02/15/19 04:48 Not Reportable 02/15/19 04:48 Few 02/15/19 04:48 Not Reportable 02/15/19 04:48 Not Reportable 02/15/19 04:48 Not Reportable 02/15/19 04:48 Not Reportable 02/15/19 04:48 Not Reportable 02/15/19 04:48 Not Reportable 02/15/19 04:48 Not Reportable 02/15/19 04:48 Not Reportable 02/15/19 04:48 Not Reportable 02/15/19 04:48 Acanthocytes (Spur) Not Reportable 02/15/19 04:48 Rouleaux Not Reportable 02/15/19 04:48 Not Reportable 02/15/19 04:48 Not Reportable 02/15/19 04:48 Not Reportable 02/15/19 04:48 Not Reportable 02/15/19 04:48 Hem Pathologist Commnt No 02/15/19 04:48 PT 22.6 Sec. (12.2-14.9) H 02/09/19 18:06 INR 2.04 (0.87-1.13) H 02/09/19 18:06 APTT 40.9 Sec. (24.2-36.6) H 02/09/19 23:15 Sodium 123 mmol/L (137-145) L 02/16/19 07:19 Potassium 4.4 mmol/L (3.6-5.0) 02/16/19 07:19 Chloride 83.0 mmol/L (98-107) L 02/16/19 07:19 Carbon Dioxide 21 mmol/L (22-30) L 02/16/19 07:19 23 mmol/L 02/16/19 07:19 BUN 31 mg/dL (7-17) H 02/16/19 07:19 0.4 mg/dL (0.7-1.2) L 02/16/19 07:19 Estimated GFR > 60 ml/min 02/16/19 07:19 78 % 02/16/19 07:19 Glucose 131 mg/dL (65-100) H 02/16/19 07:19 POC Glucose 97 (70-105) 02/15/19 20:35 Lactic Acid 3.00 mmol/L (0.7-2.0) H* 02/14/19 09:52 Calcium 8.7 mg/dL (8.4-10.2) 02/16/19 07:19 Magnesium 1.70 mg/dL (1.7-2.3) 02/09/19 23:15 0.30 mg/dL (0.1-1.2) 02/09/19 18:06 AST 18 units/L (5-40) 02/09/19 18:06 ALT 10 units/L (7-56) 02/09/19 18:06 61 units/L (35-129) 02/09/19 18:06 < 0.010 ng/mL (0.00-0.029) 02/09/19 23:15 NT-Pro-B Natriuret Pep 7069 pg/mL (0-900) H 02/09/19 18:06 6.8 g/dL (6.3-8.2) 02/09/19 18:06 2.9 g/dL (3.9-5) L 02/09/19 18:06 0.7 % 02/09/19 18:06 TSH 1.890 mlU/mL (0.270-4.200) 02/09/19 23:15 Free T4 0.89 ng/dL (0.76-1.46) 02/09/19 23:15 Active Medications - Current Medications Current Medications: Generic Name Dose Route Start Last Admin Trade Name Freq PRN Reason Stop Dose Admin Acetaminophen 650 mg 02/09/19 20:06 02/10/19 11:10 Tylenol PO 650 mg Q4H PRN Administration Pain MILD(1-3)/Fever >100.5/KEMP Apixaban 5 mg 02/10/19 10:00 02/15/19 21:58 Eliquis PO 5 mg BID DREW Administration Protocol Dextrose 50 ml 02/09/19 20:09 D50w (25gm) Syringe IV PRN PRN Hypoglycemia Furosemide 40 mg 02/10/19 06:00 02/16/19 05:22 Lasix IV 40 mg BID@0600,1800 DREW Administration Azithromycin 500 mg/ Sodium 250 mls @ 250 mls/hr 02/09/19 21:00 02/15/19 21:58 Chloride IV 250 mls/hr Q24H DREW Administration Protocol Cefepime HCl 2 gm in 100 mls @ 200 mls/hr 02/12/19 16:00 02/16/19 00:35 Maxipime/Ns 2 Gm/100 Ml IV 200 mls/hr Q8H DREW Administration Protocol Insulin Human Lispro 0 unit 02/09/19 22:00 02/15/19 21:58 Humalog SUB-Q Not Given ACHS DREW Protocol Ondansetron HCl 4 mg 02/09/19 20:06 Zofran IV Q8H PRN Nausea And Vomiting Senna/Docusate Sodium 2 tab 02/11/19 21:29 02/14/19 18:26 Senokot S PO 2 tab Q12H PRN Administration Laxative Effect Sodium Chloride 10 ml 02/09/19 22:00 02/15/19 21:58 Sodium Chloride Flush Syringe 10 Ml IV 10 ml BID DREW Administration Sodium Chloride 10 ml 02/09/19 20:06 02/16/19 05:22 Sodium Chloride Flush Syringe 10 Ml IV 10 ml PRN PRN Administration LINE FLUSH Tolvaptan 15 mg 02/16/19 14:00 Sam[place]a PO Q24H DREW Nutrition/Malnutrition Assess - Dietary Evaluation Nutrition/Malnutrition Findings: Nutrition Notes Start: 02/10/19 15:31 Freq: Status: Active Protocol: Document 02/15/19 14:53 OH (Rec: 02/15/19 15:03 OH [id number]) Nutrition Notes Initial or Follow up Reassessment Current Diagnosis Diabetes,Heart Failure Other Pertinent Diagnosis ovarian malignant neoplasm Current Diet Cardiac Labs/Tests Reviewed Pertinent Medications Lasix Height 5 ft 3 in Weight 62.4 kg [place] Body Weight (kg) 52.27 BMI 24.3 Weight change and time frame Weight noted to be upward trending x5 days. Subjective/Other Information F/U: Pt. lying in bed on her side. Family in room with patient. She does like Glucerna. Consuming 60-70% of meals. Percent of energy/protein needs met: 65/65% Burn Absent Trauma Absent GI Symptoms None Current % PO Fair (50-74%) Protein-Calorie Malnutrition Severe #1 Nutrition Diagnosis Malnutrition Diagnosis Progress(for reassessment Continues documentation) Is patient on ventilator? No Is Patient Ambulatory and/or Out of Bed Yes REE-(Graft[place]-St. Jeor-ambulatory/OOB) [ 1460.069 NUTR.[id number]] Calculation Used for Recommendations [place]-St Jeor Additional Notes Protein Needs: 73-92g (1.2-1. 5g/kg) Fluid Needs: 1 ml/kcal Nutrition Intervention Change Diet Order: Cardiac/Consistent CHO Add Supplement/Snack (indicate name/kcal Glucerna strawberry BID /protein ) Provides kCal: 480 Provides Protein (gm) 20 Goal #1 Meet at least 75% of calorie and protein needs via PO and ONS intakes Anticipated Discharge Needs: Cardiac/Consistent CHO diet Follow-Up By: 02/18/19 Additional Comments Follow for PO and ONS intakes - Attestation Statement I have reviewed and agreed w/ Malnutrition eval & tx plan: Yes
[2019-02-16] MEDS: HumaLOG SUB-Q SCH ×4 (10:08→22:31)
[2019-02-16] MEDS: SODIUM CHLORIDE FLUSH SYRINGE 10 ML IV SCH ×2 (10:09→22:32)
[2019-02-16] MEDS: ELIQUIS PO SCH ×2 (10:09→22:31)
--- NOTE | 2019-02-16 10:48 | Progress Note ---
Assessment and Plan Cultures: 02/09/19 BCx - NGTD 02/11/19 BCx - NGTD 02/12/19 Urine culture - <10K 02/12/19 Sputum culture - in progress A/P: 68 yo female with history of DM2, DVT on eliquis, CHF admitted with CHF exacerba tion and pneumonia. 1. SIRS: Improved. Still leukocytosis most likely secondary to malignancy. DDx HAP (recent hospital admission) v/s CAP - ?intra-abdominal malignancy (30Lb weight loss and recent uterine "growth" diagnosed in January 2016, she is to have a biopsy by Dr Melendez). CT abdomen and pelvis 5.6 cm complex cystic lesion within the pelvis is likely ovarian malignant neoplasm. Somewhat exophytic hypodense lesion along the anteromedial spleen could be a serosal implant or intrinsic splenic metastatic lesion. Nodular left adrenal lesion is concerning for metastatisis. On cefepime and azithromycin. 2. Acute respiratory insufficiency: on NC O2, stable. No CT evidence for pulmonary embolism. Small right pleural effusion is stable. There is a new small left pleural effusion. 3. DM2 4. Hx of DVT on anticoagulation 5. Thrombocytosis: due to #1 Recs: - continue azithromycin and cefepime 2g q8h D5 (last dose today) [facility] M: [phone] O:[phone] Subjective Date of service: 02/16/19 Principal diagnosis: SIRS Interval history: Patient seen and examined. Sitting up in bed . Reports bilateral leg tenderness. No fevers. Objective - Exam Narrative Exam: Constitutional: Awake. Alert. No acute distress. Head, Ears, Nose: Normocephalic, atraumatic. External ears, nose normal Eyes: Conjunctivae/corneas clear. No icterus. No ptosis. Neck: Supple, no meningeal signs Oral: fair dentition, moist mucous membranes Cardiovascular: S1, S2 normal. Normal rhythm Respiratory: Good air entry, clear to auscultation bilaterally GI: Soft, non-tender; bowel sounds normal. No peritoneal signs Musculoskeletal: Bilateral lower extremity redness and edema Skin: No rash or abscess Hem/Lymphatic: No palpable cervical or supraclavicular nodes. No lymphangitis Psych: no agitation, calm Neurological: Moves all extremities, no focal defects - Constitutional Vitals: Vital Signs Temp Pulse Resp BP Pulse Ox 98.1 F 126 H 16 93/63 90 02/16/19 08:39 02/16/19 08:39 02/16/19 08:39 02/16/19 08:39 02/16/19 08:39 Temperature -Last 24 Hours Temperature 98.1 F Temperature 98 F Temperature 98.6 F Temperature 98.0 F Temperature 98.0 F Temperature 98.0 F - Labs CBC & Chem 7: 02/16/19 07:19 02/16/19 07:19 Labs: Abnormal lab results 02/14/19 02/15/19 02/15/19 Range/Units 20:59 07:34 11:35 WBC (4.5-11.0) K/mm3 RBC (3.65-5.03) M/mm3 MCV (79-97) fl MCH (28-32) pg RDW (13.2-15.2) % Sodium (137-145) mmol/L Chloride (98-107) mmol/L Carbon Dioxide (22-30) mmol/L BUN (7-17) mg/dL Creatinine (0.7-1.2) mg/dL Glucose (65-100) mg/dL POC Glucose 215 H 249 H 187 H (70-105) 02/15/19 02/16/19 02/16/19 Range/Units 15:29 07:19 07:19 WBC 27.5 H (4.5-11.0) K/mm3 RBC 5.34 H (3.65-5.03) M/mm3 MCV 67 L (79-97) fl MCH 22 L (28-32) pg RDW 17.5 H (13.2-15.2) % Sodium 123 L (137-145) mmol/L Chloride 83.0 L (98-107) mmol/L Carbon Dioxide 21 L (22-30) mmol/L BUN 31 H (7-17) mg/dL Creatinine 0.4 L (0.7-1.2) mg/dL Glucose 131 H (65-100) mg/dL POC Glucose 150 H (70-105)
[2019-02-16 10:59] LABS: Basophils % (Manual) 0 % (0.0-1.8); Eosinophils % (Manual) 0 % (0.0-4.3); Monocytes % (Manual) 0 % (0.0-7.3); Total Cells Counted 100
[2019-02-16 11:00] LABS: Anisocytosis 1+; Hypochromasia 2+
[2019-02-16 11:01] LABS: Platelet Estimate Consistent w Auto; Target Cells Few
[2019-02-16] MEDS ORDERED: SAMSCA PO SCH (14:00)
--- NOTE | 2019-02-16 23:18 | Event Note ---
Date: 02/16/19 [id number]
[2019-02-17] MEDS: LASIX IV SCH (05:47)
[2019-02-17] MEDS: SODIUM CHLORIDE FLUSH SYRINGE 10 ML IV PRN (05:48)
--- NOTE | 2019-02-17 06:30 | Event Note ---
EDMD CODE blue/intubation note Called to the floor for CODE BLUE in progress. Upon my arrival patient is being bagged via BVM receiving chest compressions from nursing staff. Patient was intubated by myself 7.0 ET tube. Copious maroon-colored liquid in the oropharynx. Patient was poor recall to continue with return of spontaneous circulation. Hospitalists Dr. Lopez and Tommy at bedside. Patient left in the care of hospitalist The patient was intubated via orotracheal route using a 7.0 mm endotracheal tube. Rapid sequence induction was not used. Positioning was confirmed using auscultation and CO2 detector. Cardiovascular: Regular rate and rhythm Pulmonary: Breath sounds equal bilaterally with bagging through ET tube Neuro: GCS 3T
[2019-02-17] MEDS ORDERED: NACL 0.9% 500 ML 500 ML ONE (06:34)
[2019-02-17 06:37] LABS: Alanine Aminotransferase 21 units/L (7-56); Albumin 3.2 g/dL (3.9-5); BUN/Creatinine Ratio 56; Blood Urea Nitrogen 50 mg/dL (7-17); Calcium 8.7 mg/dL (8.4-10.2); Hemolysis Index 26
[2019-02-17 06:38] LABS: Hematocrit 33.8 % (30.3-42.9); Hemoglobin 10.6 gm/dl (10.1-14.3); Mean Corpuscular HGB Conc 31 % (30-34); Platelet Count 448 K/mm3 (140-440); Red Blood Count 4.92 M/mm3 (3.65-5.03); Red Cell Distribution Width 17.6 % (13.2-15.2)
[2019-02-17 06:40] LABS: Mean Corpuscular Volume 69 fl (79-97)
--- NOTE | 2019-02-17 06:58 | Event Note ---
Date: 02/17/19 CPR Note Responded to CODE BLUE Per nursing staff the patient was having bradycardia and then became pulseless -She was found to have coffee-ground emesis and was vomiting dark bloody substance -She was successfully intubated and resuscitated, now has a pulse and stable blood pressure -Patient continues to vomit dark bloody material Patient is still vomiting blood, now on vent Physical exam General.: Appears chronically ill, cachectic HEENT: Dark bloody liquid and mouth and around neck, consistent with coffee- ground emesis Neck: supple Cardiac: S1-S2 heard Lungs: Bibasilar crackles Abdomen: Distended Extremities: no edema clubbing or cyanosis Skin: no rash Neurologic: Obtunded, nonresponsive, not any sedation, opens eyes Assessment and plan Acute respiratory failure mechanical ventilator less than 96 hours, director [employer] consults, maintain on ventilator Coffee-ground emesis/GI bleed; PPI drip, GI consult, avoid blood thinners Afib; monitor HR, eliquis on hold given gi bleed acute metabolic encephalopathy malignant ascites, ovarian source Attempted to call family, but could not reach anyone. Prognosis is very poor, needs to have family meeting to establish goals of care CCT 33 mins
--- NOTE | 2019-02-17 06:59 | XRay Report ---
CHEST 1 VIEW INDICATION: intubated. COMPARISON: 02/12/2019 FINDINGS: Support devices: Endotracheal tube tip near the level the renea should be retracted 3 cm. Nasogastri c tube projects below the [id number] into the upper abdomen. Heart: Borderline cardiomegaly. Lungs/Pleura: Mild edema. Additional findings: None. IMPRESSION: 1. Support devices as above. Retract ET tube 3 cm. 2. Stable borderline cardiomegaly with mild edema. Signer Name: Reggie Means MD Signed: 02/17/2019 6:54 AM Workstation Name: [id number]
[2019-02-17] MEDS ORDERED: NACL 0.9% 500 ML 500 ML IV ONE ×2 (07:15→09:00)
[2019-02-17] MEDS ORDERED: LEVOPHED DRIP 4 MG/NS 250 ML 4 MG/250 ML BAG IV ONE (07:16)
--- NOTE | 2019-02-17 07:25 | Event Note ---
Date: 02/17/19 Patient's blood pressure is dropping and patient need central line to start pressers. I called ED doc Dr Ledezma and he said he will not do it because he is the only physician in the ED. I called anesthesia and they told me they are not going to do it unless the patient is going to have surgery. I called and discussed with the nursing clerk supervisor.
[2019-02-17 07:37] LABS: Hemoglobin 10.5 gm/dl (10.1-14.3); Mean Corpuscular HGB Conc 32 % (30-34); Platelet Count 396 K/mm3 (140-440); Red Cell Distribution Width 17.7 % (13.2-15.2)
[2019-02-17 07:47] LABS: Mean Corpuscular Volume 67 fl (79-97)
[2019-02-17 07:53] LABS: Creatine Kinase MB 7.3 ng/mL (0.0-4.0)
[2019-02-17 07:55] LABS: BUN/Creatinine Ratio 50; Blood Urea Nitrogen 50 mg/dL (7-17); Calcium 8.4 mg/dL (8.4-10.2); Hemolysis Index 10
[2019-02-17] MEDS ORDERED: PROTONIX 80 MG in NACL 0.9% 100 ML IV SCH (08:00)
[2019-02-17] MEDS ORDERED: LEVOPHED DRIP 4 MG/NS 250 ML 4 MG/250 ML BAG IV SCH (08:00)
[2019-02-17] MEDS: HumaLOG SUB-Q SCH (08:08)
--- NOTE | 2019-02-17 08:13 | Progress Note ---
Assessment and Plan Assessment and plan: s/p cardiorespiratory arrest Code shanti called, rescuscitated, intubated, on vent pulmonology consulted Shock started on Levophed, Order NS bolus 100ml Likely Malignant ovarian neoplasm. CT scan reveals 5.6 cm ovarian mass likely malignant neoplasm with possible metastasis to the spleen. CT scan also shows pelvic ascites with carcinomatosis. Consulted Dr. Edvin Melendez. He was not available in hospital yesterday, therefore consulted Dr. Holloway Consulted Dr. Li and he saw patient Ascites. As above. Acute hypoxic respiratory failure. Continue O2 and BiPAP as clinically indicated. Etiology secondary to pneumonia/pleural effusion. LLL pneumonia. Cont. abx. F/U serial CXR in a.m. Parapneumonic effusion. Continue IV antibiotics and follow chest x-ray Pulmonary nodule. ? Metastasis Sepsis. Etiology secondary to above. Continue antibiotic, lactic acid level remains elevated but blood cultures are negative 72 hours. ID following. Persistent leukocytosis--continue to follow CBC Hyponatremia. 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 Follow BMP. Consult nephrology. I discussed case with Nephrology Diabetes mellitus type 2. Continue Accu-Cheks and sliding scale insulin. History of DVT. Continue anticoagulation. Pt was on eliquis as an outpatient. I discussed with daughter at bedside on 12/17 History Interval history: Yeison moser this morning Transferred to ICU Now intubated Hospitalist Physical - Physical exam Narrative exam: Gen: Not in acute distress, lying in bed, HEENT: Normocephalic, atraumatic Neck: supple, no JVD Heart: S1 and S2 reg, no murmurs, rubs or gallop Lungs: Clear, no crackles, no rhonchi Abd: soft, firm, mild distended, normal BS, Ext: Bilateral lower ext edema, no clubbing, Neuro: Intubated, on ventilator - Constitutional Vitals: Temp Pulse Resp BP Pulse Ox 97.4 F L 111 H 30 H 69/48 87 02/17/19 05:09 02/17/19 07:11 02/17/19 07:11 02/17/19 07:11 02/17/19 06:34 General appearance: Present: no acute distress Results - Labs CBC & Chem 7: 02/17/19 06:58 02/17/19 06:58 Labs: Laboratory Last Values WBC 21.1 K/mm3 (4.5-11.0) H 02/17/19 06:58 RBC 4.90 M/mm3 (3.65-5.03) 02/17/19 06:58 Hgb 10.5 gm/dl (10.1-14.3) 02/17/19 06:58 Hct 33.0 % (30.3-42.9) 02/17/19 06:58 MCV 67 fl (79-97) L 02/17/19 06:58 MCH 21 pg (28-32) L 02/17/19 06:58 MCHC 32 % (30-34) 02/17/19 06:58 RDW 17.7 % (13.2-15.2) H 02/17/19 06:58 Plt Count 396 K/mm3 (140-440) 02/17/19 06:58 Add Manual Diff Complete 02/16/19 07:19 Total Counted 100 02/16/19 07:19 Seg Neutrophils % Ruby Rails Developer 02/17/19 06:58 Seg Neuts % (Manual) 96.0 % (40.0-70.0) H 02/16/19 07:19 0 % 02/16/19 07:19 4.0 % (13.4-35.0) L 02/16/19 07:19 Reactive Lymphs % (Man) 0 % 02/16/19 07:19 0 % (0.0-7.3) 02/16/19 07:19 0 % (0.0-4.3) 02/16/19 07:19 0 % (0.0-1.8) 02/16/19 07:19 0 % 02/16/19 07:19 0 % 02/16/19 07:19 0 % 02/16/19 07:19 0 % 02/16/19 07:19 Nucleated RBC % Not Reportable 02/16/19 07:19 Seg Neutrophils # Man 26.4 K/mm3 (1.8-7.7) H 02/16/19 07:19 Band Neutrophils # 0.0 K/mm3 02/16/19 07:19 1.1 K/mm3 (1.2-5.4) L 02/16/19 07:19 Abs React Lymphs (Man) 0.0 K/mm3 02/16/19 07:19 0.0 K/mm3 (0.0-0.8) 02/16/19 07:19 0.0 K/mm3 (0.0-0.4) 02/16/19 07:19 0.0 K/mm3 (0.0-0.1) 02/16/19 07:19 0.0 K/mm3 02/16/19 07:19 0.0 K/mm3 02/16/19 07:19 0.0 K/mm3 02/16/19 07:19 Blast Cells # 0.0 K/mm3 02/16/19 07:19 WBC Morphology Not Reportable 02/16/19 07:19 Hypersegmented Neuts Not Reportable 02/16/19 07:19 Hyposegmented Neuts Not Reportable 02/16/19 07:19 Hypogranular Neuts Not Reportable 02/16/19 07:19 Not Reportable 02/16/19 07:19 Not Reportable 02/16/19 07:19 Not Reportable 02/16/19 07:19 Not Reportable 02/16/19 07:19 Not Reportable 02/16/19 07:19 Not Reportable 02/16/19 07:19 Consistent w auto 02/16/19 07:19 Not Reportable 02/16/19 07:19 Plt Clumps, EDTA Not Reportable 02/16/19 07:19 Not Reportable 02/16/19 07:19 Not Reportable 02/16/19 07:19 Not Reportable 02/16/19 07:19 Plt Morphology Comment Not Reportable 02/16/19 07:19 RBC Morphology Not Reportable 02/16/19 07:19 Dimorphic RBCs Not Reportable 02/16/19 07:19 Not Reportable 02/16/19 07:19 2+ 02/16/19 07:19 Not Reportable 02/16/19 07:19 1+ 02/16/19 07:19 1+ 02/16/19 07:19 Not Reportable 02/16/19 07:19 Not Reportable 02/16/19 07:19 Not Reportable 02/16/19 07:19 Not Reportable 02/16/19 07:19 Few 02/16/19 07:19 Not Reportable 02/16/19 07:19 Not Reportable 02/16/19 07:19 Not Reportable 02/16/19 07:19 Not Reportable 02/16/19 07:19 Not Reportable 02/16/19 07:19 Not Reportable 02/16/19 07:19 Not Reportable 02/16/19 07:19 Not Reportable 02/16/19 07:19 Not Reportable 02/16/19 07:19 Acanthocytes (Spur) Not Reportable 02/16/19 07:19 Rouleaux Not Reportable 02/16/19 07:19 Not Reportable 02/16/19 07:19 Not Reportable 02/16/19 07:19 Not Reportable 02/16/19 07:19 Not Reportable 02/16/19 07:19 Hem Pathologist Commnt No 02/16/19 07:19 PT 22.6 Sec. (12.2-14.9) H 02/09/19 18:06 INR 2.04 (0.87-1.13) H 02/09/19 18:06 APTT 40.9 Sec. (24.2-36.6) H 02/09/19 23:15 Sodium 126 mmol/L (137-145) L 02/17/19 06:58 Potassium 4.6 mmol/L (3.6-5.0) 02/17/19 06:58 Chloride 86.2 mmol/L (98-107) L 02/17/19 06:58 Carbon Dioxide 18 mmol/L (22-30) L 02/17/19 06:58 26 mmol/L 02/17/19 06:58 BUN 50 mg/dL (7-17) H 02/17/19 06:58 1.0 mg/dL (0.7-1.2) 02/17/19 06:58 Estimated GFR > 60 ml/min 02/17/19 06:58 50 % 02/17/19 06:58 Glucose 222 mg/dL (65-100) H 02/17/19 06:58 POC Glucose 273 (70-105) H 02/17/19 06:57 266 Mosm/kg 02/16/19 11:05 Lactic Acid 3.00 mmol/L (0.7-2.0) H* 02/14/19 09:52 Calcium 8.4 mg/dL (8.4-10.2) 02/17/19 06:58 Phosphorus 6.30 mg/dL (2.5-4.5) H 02/17/19 06:58 Magnesium 2.30 mg/dL (1.7-2.3) 02/17/19 06:58 0.40 mg/dL (0.1-1.2) 02/17/19 06:08 AST 37 units/L (5-40) 02/17/19 06:08 ALT 21 units/L (7-56) 02/17/19 06:08 93 units/L (35-129) 02/17/19 06:08 137 units/L (30-135) H 02/17/19 06:58 CK-MB (CK-2) 7.3 ng/mL (0.0-4.0) H 02/17/19 06:58 CK-MB (CK-2) Rel Index 5.3 (0-4) H 02/17/19 06:58 < 0.010 ng/mL (0.00-0.029) 02/09/19 23:15 NT-Pro-B Natriuret Pep 7069 pg/mL (0-900) H 02/09/19 18:06 6.7 g/dL (6.3-8.2) 02/17/19 06:08 3.2 g/dL (3.9-5) L 02/17/19 06:08 0.9 % 02/17/19 06:08 TSH 1.890 mlU/mL (0.270-4.200) 02/09/19 23:15 Free T4 0.89 ng/dL (0.76-1.46) 02/09/19 23:15 Active Medications - Current Medications Current Medications: Generic Name Dose Route Start Last Admin Trade Name Nikolaiq PRN Reason Stop Dose Admin Acetaminophen 650 mg 02/09/19 20:06 02/10/19 11:10 Tylenol PO 650 mg Q4H PRN Administration Pain MILD(1-3)/Fever >100.5/KEMP Dextrose 50 ml 02/09/19 20:09 D50w (25gm) Syringe IV PRN PRN Hypoglycemia Furosemide 40 mg 02/10/19 06:00 02/17/19 05:47 Lasix IV 40 mg BID@0600,1800 DREW Administration Pantoprazole Sodium 80 mg/ 100 mls @ 10 mls/hr 02/17/19 08:00 Sodium Chloride IV DIRECT DREW 8 MG/HR Norepinephrine 4 mg in 250 mls @ 7.5 mls/hr 02/17/19 08:00 02/17/19 07:59 Levophed Drip 4 Mg/Ns 250 Ml IV 6 mcg/min TITR DREW 22.5 mls/hr Titration Protocol 2 MCG/MIN Sodium Chloride 1,000 mls @ 999 mls/hr 02/17/19 08:09 Nacl 0.9% 1000 Ml IV 02/17/19 09:09 BOLUS ONE Sodium Chloride 500 mls @ 999 mls/hr 02/17/19 08:09 Nacl 0.9% 500 Ml IV 02/17/19 08:39 ONCE ONE Insulin Human Lispro 0 unit 02/09/19 22:00 02/17/19 08:08 Humalog SUB-Q Not Given [facility] Protocol Ondansetron HCl 4 mg 02/09/19 20:06 Zofran IV Q8H PRN Nausea And Vomiting Senna/Docusate Sodium 2 tab 02/11/19 21:29 02/14/19 18:26 Senokot S PO 2 tab Q12H PRN Administration Laxative Effect Sodium Chloride 10 ml 02/09/19 22:00 02/16/19 22:32 Sodium Chloride Flush Syringe 10 Ml IV Not Given BID DREW Sodium Chloride 10 ml 02/09/19 20:06 02/17/19 05:48 Sodium Chloride Flush Syringe 10 Ml IV 10 ml PRN PRN Administration LINE FLUSH Tolvaptan 15 mg 02/16/19 14:00 02/16/19 15:08 Samsca PO 15 mg Q24H DREW Administration Nutrition/Malnutrition Assess - Dietary Evaluation Nutrition/Malnutrition Findings: Nutrition Notes Start: 02/10/19 15:31 Freq: Status: Active Protocol: Document 02/15/19 14:53 OH (Rec: 02/15/19 15:03 OH [id number]) Nutrition Notes Initial or Follow up Reassessment Current Diagnosis Diabetes,Heart Failure Other Pertinent Diagnosis ovarian malignant neoplasm Current Diet Cardiac Labs/Tests Reviewed Pertinent Medications Lasix Height 5 ft 3 in Weight 62.4 kg [place] Body Weight (kg) 52.27 BMI 24.3 Weight change and time frame Weight noted to be upward trending x5 days. Subjective/Other Information F/U: Pt. lying in bed on her side. Family in room with patient. She does like Glucerna. Consuming 60-70% of meals. Percent of energy/protein needs met: 65/65% Burn Absent Trauma Absent GI Symptoms None Current % PO Fair (50-74%) Protein-Calorie Malnutrition Severe #1 Nutrition Diagnosis Malnutrition Diagnosis Progress(for reassessment Continues documentation) Is patient on ventilator? No Is Patient Ambulatory and/or Out of Bed Yes REE-([facility]-ambulatory/OOB) [ 1460.069 [id number]] Calculation Used for Recommendations [facility] Additional Notes Protein Needs: 73-92g (1.2-1. 5g/kg) Fluid Needs: 1 ml/kcal Nutrition Intervention Change Diet Order: Cardiac/Consistent CHO Add Supplement/Snack (indicate name/kcal Glucerna strawberry BID /protein ) Provides kCal: 480 Provides Protein (gm) 20 Goal #1 Meet at least 75% of calorie and protein needs via PO and ONS intakes Anticipated Discharge Needs: Cardiac/Consistent CHO diet Follow-Up By: 02/18/19 Additional Comments Follow for PO and ONS intakes
--- NOTE | 2019-02-17 08:57 | Hem/Onc Progress Note ---
Assessment and Plan had a code on vent oral bleed poor prognosis 1. Ovarian mass. peritoneal lesions 2. History of deep venous thrombosis and pulmonary embolism. was on eliquis 3. ____. 4. The patient probably has advanced AMBULANCE OFFICER tumor. The patient was following a focuser. There was a plan for biopsy, but this was changed. 5. Diabetes. 6. Hyponatremia. 7. History of congestive heart failure. 8. Pneumonia. 9. Question of lung nodules, possible mets. - Patient Problems (1) Pulmonary embolism Status: Acute (2) Ovarian ca Status: Acute Subjective Date of service: 02/17/19 Principal diagnosis: ovarian mass - PE Interval history: pt had a code called for her - intubated - in ICU - bleeding+ Objective - Exam Narrative Exam: Pain Not evaluable General appearance on vent Performance status -completely disabled Eyes EOM not able to evaluate ENT oral bleed+ LNs cervical not palpable Neck Not evaluable Respiratory decreased air entry anteriorly Breath sounds - CTA anteriorly CVS S1 S2 + Extremities normal temperature/ no edema General GI Soft Rectal deferred Female - deferred Skin warm Musculoskeletal generalized weakness Neurologically not responsive - Constitutional Vitals: Last Vital Signs Temp 97.0 F L 02/17/19 08:00 Pulse 111 H 02/17/19 08:02 Resp 22 02/17/19 08:02 BP 83/39 02/17/19 08:02 Pulse Ox 98 02/17/19 08:02 - Labs Lab Results: Laboratory Results - last 24 hr 02/16/19 02/16/19 02/16/19 07:19 07:59 11:05 WBC RBC Hgb Hct MCV MCH MCHC RDW Plt Count Add Manual Diff Complete Total Counted 100 Seg Neutrophils % Seg Neuts % (Manual) 96.0 H Band Neutrophils % 0 Lymphocytes % (Manual) 4.0 L Reactive Lymphs % (Man) 0 Monocytes % (Manual) 0 Eosinophils % (Manual) 0 Basophils % (Manual) 0 Metamyelocytes % 0 Myelocytes % 0 Promyelocytes % 0 Blast Cells % 0 Nucleated RBC % Not Reportable Seg Neutrophils # Man 26.4 H Band Neutrophils # 0.0 Lymphocytes # (Manual) 1.1 L Abs React Lymphs (Man) 0.0 Monocytes # (Manual) 0.0 Eosinophils # (Manual) 0.0 Basophils # (Manual) 0.0 Metamyelocytes # 0.0 Myelocytes # 0.0 Promyelocytes # 0.0 Blast Cells # 0.0 WBC Morphology Not Reportable Hypersegmented Neuts Not Reportable Hyposegmented Neuts Not Reportable Hypogranular Neuts Not Reportable Smudge Cells Not Reportable Toxic Granulation Not Reportable Toxic Vacuolation Not Reportable Dohle Bodies Not Reportable Pelger-Huet Anomaly Not Reportable Mary Jo Rods Not Reportable Platelet Estimate Consistent w auto Clumped Platelets Not Reportable Plt Clumps, EDTA Not Reportable Large Platelets Not Reportable Giant Platelets Not Reportable Platelet Satelliting Not Reportable Plt Morphology Comment Not Reportable RBC Morphology Not Reportable Dimorphic RBCs Not Reportable Polychromasia Not Reportable Hypochromasia 2+ Poikilocytosis Not Reportable Anisocytosis 1+ Microcytosis 1+ Macrocytosis Not Reportable Spherocytes Not Reportable Pappenheimer Bodies Not Reportable Sickle Cells Not Reportable Target Cells Few Tear Drop Cells Not Reportable Ovalocytes Not Reportable Helmet Cells Not Reportable Snyder-[place] Bodies Not Reportable [place] Rings Not Reportable Niranjan Cells Not Reportable Bite Cells Not Reportable Crenated Cell Not Reportable Elliptocytes Not Reportable Acanthocytes (Spur) Not Reportable Rouleaux Not Reportable Hemoglobin C Crystals Not Reportable Schistocytes Not Reportable Malaria parasites Not Reportable Earl Bodies Not Reportable Hem Pathologist Commnt No Sodium Potassium Chloride Carbon Dioxide Anion Gap BUN Creatinine Estimated GFR BUN/Creatinine Ratio Glucose POC Glucose 129 H Osmolality 266 Calcium Phosphorus Magnesium Total Bilirubin AST ALT Alkaline Phosphatase Total Creatine Kinase CK-MB (CK-2) CK-MB (CK-2) Rel Index Troponin T Total Protein Albumin Albumin/Globulin Ratio 02/16/19 02/16/19 02/16/19 13:00 17:29 21:55 WBC RBC Hgb Hct MCV MCH MCHC RDW Plt Count Add Manual Diff Total Counted Seg Neutrophils % Seg Neuts % (Manual) Band Neutrophils % Lymphocytes % (Manual) Reactive Lymphs % (Man) Monocytes % (Manual) Eosinophils % (Manual) Basophils % (Manual) Metamyelocytes % Myelocytes % Promyelocytes % Blast Cells % Nucleated RBC % Seg Neutrophils # Man Band Neutrophils # Lymphocytes # (Manual) Abs React Lymphs (Man) Monocytes # (Manual) Eosinophils # (Manual) Basophils # (Manual) Metamyelocytes # Myelocytes # Promyelocytes # Blast Cells # WBC Morphology Hypersegmented Neuts Hyposegmented Neuts Hypogranular Neuts Smudge Cells Toxic Granulation Toxic Vacuolation Dohle Bodies Pelger-Huet Anomaly Mary Jo Rods Platelet Estimate Clumped Platelets Plt Clumps, EDTA Large Platelets Giant Platelets Platelet Satelliting Plt Morphology Comment RBC Morphology Dimorphic RBCs Polychromasia Hypochromasia Poikilocytosis Anisocytosis Microcytosis Macrocytosis Spherocytes Pappenheimer Bodies Sickle Cells Target Cells Tear Drop Cells Ovalocytes Helmet Cells Snyder-[place] Bodies [place] Rings Niranjan Cells Bite Cells Crenated Cell Elliptocytes Acanthocytes (Spur) Rouleaux Hemoglobin C Crystals Schistocytes Malaria parasites Earl Bodies Hem Pathologist Commnt Sodium Potassium Chloride Carbon Dioxide Anion Gap BUN Creatinine Estimated GFR BUN/Creatinine Ratio Glucose POC Glucose 143 H 228 H 193 H Osmolality Calcium Phosphorus Magnesium Total Bilirubin AST ALT Alkaline Phosphatase Total Creatine Kinase CK-MB (CK-2) CK-MB (CK-2) Rel Index Troponin T Total Protein Albumin Albumin/Globulin Ratio 02/17/19 02/17/19 02/17/19 06:08 06:08 06:57 WBC 30.3 H RBC 4.92 Hgb 10.6 Hct 33.8 MCV 69 L MCH 22 L MCHC 31 RDW 17.6 H Plt Count 448 H Add Manual Diff Total Counted Seg Neutrophils % Seg Neuts % (Manual) Band Neutrophils % Lymphocytes % (Manual) Reactive Lymphs % (Man) Monocytes % (Manual) Eosinophils % (Manual) Basophils % (Manual) Metamyelocytes % Myelocytes % Promyelocytes % Blast Cells % Nucleated RBC % Seg Neutrophils # Man Band Neutrophils # Lymphocytes # (Manual) Abs React Lymphs (Man) Monocytes # (Manual) Eosinophils # (Manual) Basophils # (Manual) Metamyelocytes # Myelocytes # Promyelocytes # Blast Cells # WBC Morphology Hypersegmented Neuts Hyposegmented Neuts Hypogranular Neuts Smudge Cells Toxic Granulation Toxic Vacuolation Dohle Bodies Pelger-Huet Anomaly Mary Jo Rods Platelet Estimate Clumped Platelets Plt Clumps, EDTA Large Platelets Giant Platelets Platelet Satelliting Plt Morphology Comment RBC Morphology Dimorphic RBCs Polychromasia Hypochromasia Poikilocytosis Anisocytosis Microcytosis Macrocytosis Spherocytes Pappenheimer Bodies Sickle Cells Target Cells Tear Drop Cells Ovalocytes Helmet Cells Snyder-[place]al[place] Bodies [place] Rings [place] Cells Bite Cells Crenated Cell Elliptocytes Acanthocytes (Spur) Rouleaux Hemoglobin C Crystals Schistocytes Malaria parasites Earl Bodies Hem Pathologist Commnt Sodium 124 L Potassium 4.8 Chloride 85.5 L Carbon Dioxide 18 L Anion Gap 25 BUN 50 H Creatinine 0.9 D Estimated GFR > 60 BUN/Creatinine Ratio 56 Glucose 193 H POC Glucose 273 H Osmolality Calcium 8.7 Phosphorus Magnesium Total Bilirubin 0.40 AST 37 ALT 21 Alkaline Phosphatase 93 Total Creatine Kinase CK-MB (CK-2) CK-MB (CK-2) Rel Index Troponin T Total Protein 6.7 Albumin 3.2 L Albumin/Globulin Ratio 0.9 02/17/19 02/17/19 06:58 06:58 WBC 21.1 H RBC 4.90 Hgb 10.5 Hct 33.0 MCV 67 L MCH 21 L MCHC 32 RDW 17.7 H Plt Count 396 Add Manual Diff Total Counted Seg Neutrophils % [place] Seg Neuts % (Manual) Band Neutrophils % Lymphocytes % (Manual) Reactive Lymphs % (Man) Monocytes % (Manual) Eosinophils % (Manual) Basophils % (Manual) Metamyelocytes % Myelocytes % Promyelocytes % Blast Cells % Nucleated RBC % Seg Neutrophils # Man Band Neutrophils # Lymphocytes # (Manual) Abs React Lymphs (Man) Monocytes # (Manual) Eosinophils # (Manual) Basophils # (Manual) Metamyelocytes # Myelocytes # Promyelocytes # Blast Cells # WBC Morphology Hypersegmented Neuts Hyposegmented Neuts Hypogranular Neuts Smudge Cells Toxic Granulation Toxic Vacuolation Dohle Bodies Pelger-Huet Anomaly Mary Jo Rods Platelet Estimate Clumped Platelets Plt Clumps, EDTA Large Platelets Giant Platelets Platelet Satelliting Plt Morphology Comment RBC Morphology Dimorphic RBCs Polychromasia Hypochromasia Poikilocytosis Anisocytosis Microcytosis Macrocytosis Spherocytes Pappenheimer Bodies Sickle Cells Target Cells Tear Drop Cells Ovalocytes Helmet Cells Snyder-Coalton Bodies [place] Rings [place] Cells Bite Cells Crenated Cell Elliptocytes Acanthocytes (Spur) Rouleaux Hemoglobin C Crystals Schistocytes Malaria parasites Earl Bodies Hem Pathologist Commnt Sodium 126 L Potassium 4.6 Chloride 86.2 L Carbon Dioxide 18 L Anion Gap 26 BUN 50 H Creatinine 1.0 Estimated GFR > 60 BUN/Creatinine Ratio 50 Glucose 222 H POC Glucose Osmolality Calcium 8.4 Phosphorus 6.30 H Magnesium 2.30 Total Bilirubin AST ALT Alkaline Phosphatase Total Creatine Kinase 137 H CK-MB (CK-2) 7.3 H CK-MB (CK-2) Rel Index 5.3 H Troponin T 0.113 H* Total Protein Albumin Albumin/Globulin Ratio Medications & Allergies - Medications Allergies/Adverse Reactions: Allergies No Known Allergies Allergy (Verified 01/15/19 14:39) Home Medications: Home Medications Medication Instructions Recorded Confirmed Last Taken Type metFORMIN [Glucophage] 500 mg PO BID 01/10/19 02/09/19 Unknown History Apixaban [Eliquis] 2 tab PO BID #26 tablet 01/12/19 02/09/19 Unknown Rx Furosemide [Lasix] 20 mg PO BID 02/09/19 02/09/19 Unknown History Active Medications: Generic Name Dose Route Start Last Admin Trade Name Freq PRN Reason Stop Dose Admin Acetaminophen 650 mg 02/09/19 20:06 02/10/19 11:10 Tylenol PO 650 mg Q4H PRN Administration Pain MILD(1-3)/Fever >100.5/KEMP Dextrose 50 ml 02/09/19 20:09 D50w (25gm) Syringe IV PRN PRN Hypoglycemia Furosemide 40 mg 02/10/19 06:00 02/17/19 05:47 Lasix IV 40 mg BID@0600,1800 DREW Administration Pantoprazole Sodium 80 mg/ 100 mls @ 10 mls/hr 02/17/19 08:00 02/17/19 08:26 Sodium Chloride IV 8 mg/hr DIRECT DREW 10 mls/hr Administration 8 MG/HR Norepinephrine 4 mg in 250 mls @ 7.5 mls/hr 02/17/19 08:00 02/17/19 08:29 Levophed Drip 4 Mg/Ns 250 Ml IV 10 mcg/min TITR DREW 37.5 mls/hr Titration Protocol 2 MCG/MIN Sodium Chloride 1,000 mls @ 999 mls/hr 02/17/19 09:00 02/17/19 08:17 Nacl 0.9% 1000 Ml IV 02/17/19 10:00 999 mls/hr BOLUS ONE Administration Insulin Human Lispro 0 unit 02/17/19 12:00 Humalog SUB-Q Q6HR DREW Protocol Ondansetron HCl 4 mg 02/09/19 20:06 Zofran IV Q8H PRN Nausea And Vomiting Senna/Docusate Sodium 2 tab 02/11/19 21:29 02/14/19 18:26 Senokot S PO 2 tab Q12H PRN Administration Laxative Effect Sodium Chloride 10 ml 02/09/19 22:00 02/16/19 22:32 Sodium Chloride Flush Syringe 10 Ml IV Not Given BID DREW Sodium Chloride 10 ml 02/09/19 20:06 02/17/19 05:48 Sodium Chloride Flush Syringe 10 Ml IV 10 ml PRN PRN Administration LINE FLUSH Tolvaptan 15 mg 02/16/19 14:00 02/16/19 15:08 Samsca PO 15 mg Q24H DREW Administration
[2019-02-17] MEDS ORDERED: NACL 0.9% 1000 ML 1,000 ML IV ONE (09:00)
[2019-02-17] MEDS: SODIUM CHLORIDE FLUSH SYRINGE 10 ML IV SCH (10:00)
--- NOTE | 2019-02-17 10:11 | Progress Note ---
Assessment and Plan Cultures: 02/09/19 BCx - NGTD 02/11/19 BCx - NGTD 02/12/19 Urine culture - <10K 02/12/19 Sputum culture - Mary albicans 02/17/2019 blood culture: in process A/P: 68 yo female with history of DM2, DVT on eliquis, CHF admitted with CHF exacerbation and pneumonia. 1. S/P arrest and shock: ?intra-abdominal malignancy (30Lb weight loss and uterine "growth"). CT abdomen and pelvis 5.6 cm complex cystic lesion within the pelvis is likely ovarian malignant neoplasm. Somewhat exophytic hypodense lesion along the anteromedial spleen could be a serosal implant or intrinsic splenic metastatic lesion. Nodular left adrenal lesion is concerning for metastases. 2. Acute respiratory failure, on vent: had coffee ground emesis, required bag valve ventilation during code, concerning for possible aspiration. Will continue abx, switch to Cefepime + Flagyl. 3. DM2 4. Hx of DVT on anticoagulation 5. Thrombocytosis: due to #1 Recs: - extend abx given recent event - continue on Cefepime, add Flagyl for aspiration coverage - overall prognosis is poor, consider hospice d/w Dr. Park in ICU. Silvestre Lomax MD, FACP [facility] ([facility] C: [phone] O: [phone] F: [phone] Subjective Date of service: 02/17/19 Principal diagnosis: SIRS Interval history: Coded this morning. Now intubated, on the vent, on pressors. Apparently had coffee ground emesis. Unresponsive now. Objective - Exam Narrative Exam: Physical Exam: Constitutional: sedated, intubated Head, Ears, Nose: Normocephalic, atraumatic. External ears, nose normal Eyes: Conjunctivae/corneas clear. No icterus. No ptosis. Neck: Supple, no meningeal signs Oral: intubated Cardiovascular: S1, S2 normal. Respiratory: Good air entry, clear to auscultation bilaterally GI: distended; bowel sounds normal. No peritoneal signs Musculoskeletal: No pedal edema, no cyanosis. Skin: No rash or abscess Hem/Lymphatic: No palpable cervical or supraclavicular nodes. No lymphangitis Psych: no agitation Neurological: sedated, intubated, on vent - Constitutional Vitals: Vital Signs Temp Pulse Resp BP Pulse Ox 97.0 F L 111 H 22 83/39 98 02/17/19 08:00 02/17/19 08:02 02/17/19 08:02 02/17/19 08:02 02/17/19 08:02 Temperature -Last 24 Hours Temperature 97.0 F Temperature 97.4 F Temperature 97.5 F Temperature 97.6 F Temperature 97.9 F - Labs CBC & Chem 7: 02/17/19 06:58 02/17/19 06:58 Labs: Abnormal lab results 02/16/19 02/16/19 02/16/19 Range/Units 07:19 07:59 13:00 WBC (4.5-11.0) K/mm3 MCV (79-97) fl MCH (28-32) pg RDW (13.2-15.2) % Plt Count (140-440) K/mm3 Seg Neuts % (Manual) 96.0 H (40.0-70.0) % Lymphocytes % (Manual) 4.0 L (13.4-35.0) % Seg Neutrophils # Man 26.4 H (1.8-7.7) K/mm3 Lymphocytes # (Manual) 1.1 L (1.2-5.4) K/mm3 Sodium (137-145) mmol/L Chloride (98-107) mmol/L Carbon Dioxide (22-30) mmol/L BUN (7-17) mg/dL Glucose (65-100) mg/dL POC Glucose 129 H 143 H (70-105) Phosphorus (2.5-4.5) mg/dL Total Creatine Kinase (30-135) units/L CK-MB (CK-2) (0.0-4.0) ng/mL CK-MB (CK-2) Rel Index (0-4) Troponin T (0.00-0.029) ng/mL Albumin (3.9-5) g/dL 02/16/19 02/16/19 02/17/19 Range/Units 17:29 21:55 06:08 WBC (4.5-11.0) K/mm3 MCV (79-97) fl MCH (28-32) pg RDW (13.2-15.2) % Plt Count (140-440) K/mm3 Seg Neuts % (Manual) (40.0-70.0) % Lymphocytes % (Manual) (13.4-35.0) % Seg Neutrophils # Man (1.8-7.7) K/mm3 Lymphocytes # (Manual) (1.2-5.4) K/mm3 Sodium 124 L (137-145) mmol/L Chloride 85.5 L (98-107) mmol/L Carbon Dioxide 18 L (22-30) mmol/L BUN 50 H (7-17) mg/dL Glucose 193 H (65-100) mg/dL POC Glucose 228 H 193 H (70-105) Phosphorus (2.5-4.5) mg/dL Total Creatine Kinase (30-135) units/L CK-MB (CK-2) (0.0-4.0) ng/mL CK-MB (CK-2) Rel Index (0-4) Troponin T (0.00-0.029) ng/mL Albumin 3.2 L (3.9-5) g/dL 02/17/19 02/17/19 02/17/19 Range/Units 06:08 06:57 06:58 WBC 30.3 H 21.1 H (4.5-11.0) K/mm3 MCV 69 L 67 L (79-97) fl MCH 22 L 21 L (28-32) pg RDW 17.6 H 17.7 H (13.2-15.2) % Plt Count 448 H (140-440) K/mm3 Seg Neuts % (Manual) (40.0-70.0) % Lymphocytes % (Manual) (13.4-35.0) % Seg Neutrophils # Man (1.8-7.7) K/mm3 Lymphocytes # (Manual) (1.2-5.4) K/mm3 Sodium (137-145) mmol/L Chloride (98-107) mmol/L Carbon Dioxide (22-30) mmol/L BUN (7-17) mg/dL Glucose (65-100) mg/dL POC Glucose 273 H (70-105) Phosphorus (2.5-4.5) mg/dL Total Creatine Kinase (30-135) units/L CK-MB (CK-2) (0.0-4.0) ng/mL CK-MB (CK-2) Rel Index (0-4) Troponin T (0.00-0.029) ng/mL Albumin (3.9-5) g/dL 02/17/19 Range/Units 06:58 WBC (4.5-11.0) K/mm3 MCV (79-97) fl MCH (28-32) pg RDW (13.2-15.2) % Plt Count (140-440) K/mm3 Seg Neuts % (Manual) (40.0-70.0) % Lymphocytes % (Manual) (13.4-35.0) % Seg Neutrophils # Man (1.8-7.7) K/mm3 Lymphocytes # (Manual) (1.2-5.4) K/mm3 Sodium 126 L (137-145) mmol/L Chloride 86.2 L (98-107) mmol/L Carbon Dioxide 18 L (22-30) mmol/L BUN 50 H (7-17) mg/dL Glucose 222 H (65-100) mg/dL POC Glucose (70-105) Phosphorus 6.30 H (2.5-4.5) mg/dL Total Creatine Kinase 137 H (30-135) units/L CK-MB (CK-2) 7.3 H (0.0-4.0) ng/mL CK-MB (CK-2) Rel Index 5.3 H (0-4) Troponin T 0.113 H* (0.00-0.029) ng/mL Albumin (3.9-5) g/dL
[2019-02-17] MEDS ORDERED: NACL 0.9% 1000 ML 1,000 ML IV SCH (11:00)
[2019-02-17] MEDS ORDERED: MAXIPIME/NS 2 GM/100 ML 2 GM/100 ML BAG IV SCH (11:00)
[2019-02-17] MEDS ORDERED: Vasostrict 20 UNIT in NACL 0.9% 100 ML IV SCH (11:00)
--- NOTE | 2019-02-17 11:02 | Progress Note ---
Assessment and Plan s/p Cariopulmonary arrest intubated on the vent Malignant ovarian neoplasm with mets Bilateral pulmonary nodule concerning to mets on debora CTA Pneumonia Leukocytosis Hyponatremia Hx of PE/DVT on eliquis as an outpatient now held due to hememesis Diabetes An echocardiogram done 01/10/2019 reports dilated right heart chambers with severe pulmonary hypertension, RVSP 65-70 mmHg. Normal left ventricular systolic function, EF 60-65%. Subjective Date of service: 02/17/19 Principal diagnosis: SIRS Interval history: AD GONZALES called early this morning for cardiopulmonary arrest. Patient transferred to CCU and is currently unresponsive on the vent and on pressors for support. Cardiology has been recalled post arrest for elevated troponin. Post arrest EKG is sinus tachycardia, with low voltage. No acute ischemic changes. Objective Vital Signs Temp Pulse Resp BP BP Pulse Ox 02/17/19 10:00 110 H 02/17/19 08:02 111 H 22 83/39 98 02/17/19 08:00 97.0 F L 02/17/19 07:11 111 H 30 H 69/48 02/17/19 07:00 111 H 30 H 69/48 02/17/19 06:51 114 H 29 H 137/89 02/17/19 06:41 116 H 25 H 137/89 02/17/19 06:34 87 02/17/19 05:09 97.4 F L 117 H 26 H 142/117 91 02/17/19 05:00 117 H 142/117 89 02/16/19 23:00 97.5 F L 02/16/19 22:58 114 H 20 93/63 100 02/16/19 22:00 114 H 02/16/19 20:45 97.6 F 53 L 20 85/52 91 02/16/19 17:00 115 H 02/16/19 13:56 97 02/16/19 12:00 97.9 F 94 H 24 109/79 94 - Physical Examination General: No Apparent Distress HEENT: Positive: PERRL Neck: Positive: trachea midline Neuro: Positive: Grossly Intact Extremities: Present: edema (mild) - Labs and Meds Cardiac Enzymes 02/17/19 02/17/19 Range/Units 06:08 06:58 AST 37 (5-40) units/L CK-MB (CK-2) 7.3 H (0.0-4.0) ng/mL CBC 02/17/19 02/17/19 Range/Units 06:08 06:58 WBC 30.3 H 21.1 H (4.5-11.0) K/mm3 RBC 4.92 4.90 (3.65-5.03) M/mm3 Hgb 10.6 10.5 (10.1-14.3) gm/dl Hct 33.8 33.0 (30.3-42.9) % Plt Count 448 H 396 (140-440) K/mm3 Comprehensive Metabolic Panel 02/17/19 02/17/19 Range/Units 06:08 06:58 Sodium 124 L 126 L (137-145) mmol/L Potassium 4.8 4.6 (3.6-5.0) mmol/L Chloride 85.5 L 86.2 L (98-107) mmol/L Carbon Dioxide 18 L 18 L (22-30) mmol/L BUN 50 H 50 H (7-17) mg/dL Creatinine 0.9 D 1.0 (0.7-1.2) mg/dL Glucose 193 H 222 H (65-100) mg/dL Calcium 8.7 8.4 (8.4-10.2) mg/dL AST 37 (5-40) units/L ALT 21 (7-56) units/L Alkaline Phosphatase 93 (35-129) units/L Total Protein 6.7 (6.3-8.2) g/dL Albumin 3.2 L (3.9-5) g/dL
--- NOTE | 2019-02-17 11:09 | Gastroenterology Consultation ---
History of Present Illness - Reason for Consult Consult date: 02/17/19 GIB Requesting physician: CONCETTA GREEN - History of Present Illness Patient is a 68 y/o female with PMH of DM, DVT (on Eliquis), and CHF who presented to ED for evaluation of swelling in BLE and abdomen, along with generalized weakness, SOB, and was admitted for acute hypoxic respiratory failu re, LLL pneumonia, parapneumonic effusion, sepsis, hyponatremia, and likely malignant ovarian neoplasm with ascites and possible mets (CT scan reveals 5.6 cm ovarian mass likely malignant neoplasm with possible metastasis to the spleen. 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 She is currently in ICU on vent and pressor support s/p cardiorespiratory arrest this am. Per chart review, during intubation there was noted copious maroon-colored liquid in oropharynx and coffee-ground drainage from NGT to which GI has been consulted. Upon exam, patient was unresponsive on vent with small amount of dark drainage from NGT and abd distended 2/2 ascites. No family at bedside. History obtained via chart review. BM x 1 this am per nursing with light brown stool since being in ICU with no evidence of hematochezia or melena. Eliquis now on hold. Previous GI history unknown. Past History Past Medical History: diabetes, DVT, heart failure Past Surgical History: Other (Eye surgery) Social history: single. denies: smoking, alcohol abuse, prescription drug abuse, IV drug use Family history: hypertension Medications and Allergies Allergies Allergy/AdvReac Type Severity Reaction Status Date / Time No Known Allergies Allergy Verified 01/15/19 14:39 Home Medications Medication Instructions Recorded Confirmed Last Taken Type metFORMIN [Glucophage] 500 mg PO BID 01/10/19 02/09/19 Unknown History Apixaban [Eliquis] 2 tab PO BID #26 tablet 01/12/19 02/09/19 Unknown Rx Furosemide [Lasix] 20 mg PO BID 02/09/19 02/09/19 Unknown History Active Meds: Active Medications Acetaminophen (Tylenol) 650 mg PO Q4H PRN PRN Reason: Pain MILD(1-3)/Fever >100.5/KEMP Last Admin: 02/10/19 11:10 Dose: 650 mg Documented by: Dextrose (D50w (25gm) Syringe) 50 ml IV PRN PRN PRN Reason: Hypoglycemia Pantoprazole Sodium 80 mg/ (Sodium Chloride) 100 mls @ 10 mls/hr IV DIRECT DREW Last Admin: 02/17/19 08:26 Dose: 8 mg/hr, 10 mls/hr Documented by: Norepinephrine (Levophed Drip 4 Mg/Ns 250 Ml) 4 mg in 250 mls @ 7.5 mls/hr IV TITR DREW; Protocol Last Titration: 02/17/19 10:27 Dose: 12 mcg/min, 45 mls/hr Documented by: Cefepime HCl (Maxipime/Ns 2 Gm/100 Ml) 2 gm in 100 mls @ 200 mls/hr IV Q12HR DREW; Protocol Metronidazole (Flagyl 500 Mg/100 Ml) 500 mg in 100 mls @ 100 mls/hr IV Q8HR DREW; Protocol Vasopressin 20 unit/ Sodium (Chloride) 101 mls @ 9.09 mls/hr IV TITR DREW; Protocol Sodium Chloride (Nacl 0.9% 1000 Ml) 1,000 mls @ 999 mls/hr IV Q1H DREW Stop: 02/17/19 12:59 Insulin Human Lispro (Humalog) 0 unit SUB-Q Q6HR DREW; Protocol Ondansetron HCl (Zofran) 4 mg IV Q8H PRN PRN Reason: Nausea And Vomiting Sodium Chloride (Sodium Chloride Flush Syringe 10 Ml) 10 ml IV BID DREW Last Admin: 02/16/19 22:32 Dose: Not Given Documented by: Sodium Chloride (Sodium Chloride Flush Syringe 10 Ml) 10 ml IV PRN PRN PRN Reason: LINE FLUSH Last Admin: 02/17/19 05:48 Dose: 10 ml Documented by: medications reviewed/updated as required Review of Systems - Review of Systems ROS unobtainable: due to endotracheal tube, due to mental status Exam - Constitutional Vital Signs: Temp Pulse Resp BP Pulse Ox 97.0 F L 110 H 22 83/39 98 02/17/19 08:00 02/17/19 10:00 02/17/19 08:02 02/17/19 08:02 02/17/19 08:02 General appearance: other (unresponsive on vent and pressor support with continued hypotension) - EENT ENT: other (+NGT with small amount of coffee-ground drainage; +ETT) - Cardiovascular Rhythm: other (tachycardia) - Gastrointestinal General gastrointestinal: Present: distended (ascites) - Labs CBC & Chem 7: 02/17/19 06:58 02/17/19 06:58 Lab Results: Laboratory Results - last 24 hr 02/16/19 02/16/19 02/16/19 07:59 11:05 13:00 WBC RBC Hgb Hct MCV MCH MCHC RDW Plt Count Seg Neutrophils % POC ABG pH POC ABG pCO2 POC ABG pO2 POC ABG HCO3 POC ABG Total CO2 POC ABG O2 Sat POC ABG Base Excess FiO2 Sodium Potassium Chloride Carbon Dioxide Anion Gap BUN Creatinine Estimated GFR BUN/Creatinine Ratio Glucose POC Glucose 129 H 143 H Osmolality 266 Calcium Phosphorus Magnesium Total Bilirubin AST ALT Alkaline Phosphatase Total Creatine Kinase CK-MB (CK-2) CK-MB (CK-2) Rel Index Troponin T Total Protein Albumin Albumin/Globulin Ratio 02/16/19 02/16/19 02/17/19 17:29 21:55 06:08 WBC RBC Hgb Hct MCV MCH MCHC RDW Plt Count Seg Neutrophils % POC ABG pH POC ABG pCO2 POC ABG pO2 POC ABG HCO3 POC ABG Total CO2 POC ABG O2 Sat POC ABG Base Excess FiO2 Sodium 124 L Potassium 4.8 Chloride 85.5 L Carbon Dioxide 18 L Anion Gap 25 BUN 50 H Creatinine 0.9 D Estimated GFR > 60 BUN/Creatinine Ratio 56 Glucose 193 H POC Glucose 228 H 193 H Osmolality Calcium 8.7 Phosphorus Magnesium Total Bilirubin 0.40 AST 37 ALT 21 Alkaline Phosphatase 93 Total Creatine Kinase CK-MB (CK-2) CK-MB (CK-2) Rel Index Troponin T Total Protein 6.7 Albumin 3.2 L Albumin/Globulin Ratio 0.9 02/17/19 02/17/19 02/17/19 06:08 06:57 06:58 WBC 30.3 H 21.1 H RBC 4.92 4.90 Hgb 10.6 10.5 Hct 33.8 33.0 MCV 69 L 67 L MCH 22 L 21 L MCHC 31 32 RDW 17.6 H 17.7 H Plt Count 448 H 396 Seg Neutrophils % [employer] POC ABG pH POC ABG pCO2 POC ABG pO2 POC ABG HCO3 POC ABG Total CO2 POC ABG O2 Sat POC ABG Base Excess FiO2 Sodium Potassium Chloride Carbon Dioxide Anion Gap BUN Creatinine Estimated GFR BUN/Creatinine Ratio Glucose POC Glucose 273 H Osmolality Calcium Phosphorus Magnesium Total Bilirubin AST ALT Alkaline Phosphatase Total Creatine Kinase CK-MB (CK-2) CK-MB (CK-2) Rel Index Troponin T Total Protein Albumin Albumin/Globulin Ratio 02/17/19 02/17/19 06:58 10:17 WBC RBC Hgb Hct MCV MCH MCHC RDW Plt Count Seg Neutrophils % POC ABG pH 7.263 L POC ABG pCO2 44.7 POC ABG pO2 56 L POC ABG HCO3 20.2 POC ABG Total CO2 22 POC ABG O2 Sat 84 POC ABG Base Excess -7 FiO2 100 Sodium 126 L Potassium 4.6 Chloride 86.2 L Carbon Dioxide 18 L Anion Gap 26 BUN 50 H Creatinine 1.0 Estimated GFR > 60 BUN/Creatinine Ratio 50 Glucose 222 H POC Glucose Osmolality Calcium 8.4 Phosphorus 6.30 H Magnesium 2.30 Total Bilirubin AST ALT Alkaline Phosphatase Total Creatine Kinase 137 H CK-MB (CK-2) 7.3 H CK-MB (CK-2) Rel Index 5.3 H Troponin T 0.113 H* Total Protein Albumin Albumin/Globulin Ratio Assessment and Plan 1.UGIB 2.coffee-ground emesis -H/H WNL (10.5/33.0) -continue to monitor H/H and transfuse as needed -per chart review, copious maroon-colored liquid in oropharynx noted with intubation during code blue this am with now dark coffee-ground colored drainage from NGT. Stool light brown per nursing with no evidence of melena or hematochezia. -etiology-likely 2/2 trauma vs other -no plan for scope at this time given critical condition, will consider based on clinical course once stable (currently in ICU, unresponsive on vent and pressor support with continued hypotension) -continue protonix drip -Eliquis on hold -continue supportive care -prognosis poor- discussion of plan of care/possible hospice per primary team -will follow 3.s/p cardiorespiratory arrest 02/17 4.Acute respiratory failure 5.LLL pneumonia 6.Parapneumonic effusion 7.Pulmonary nodule. ? Metastasis 8.sepsis 9.Afib 10.acute metabolic encephalopathy 11.malignant ascites, ovarian source
[2019-02-17] MEDS ORDERED: HumaLOG SUB-Q SCH (12:00)
[2019-02-17 12:17] LABS: Basophils % (Manual) 0 % (0.0-1.8); Eosinophils % (Manual) 0 % (0.0-4.3); Total Cells Counted 100
[2019-02-17 12:18] LABS: Anisocytosis 1+; Hypochromasia 1+; Poikilocytosis Few
[2019-02-17 12:19] LABS: Large Platelets Rare; Platelet Estimate Consistent w Auto; Target Cells Few
[2019-02-17 12:23] LABS: Chol/HDL Ratio 1.62 %
[2019-02-17] MEDS ORDERED: ADRENALIN ONE (12:31)
[2019-02-17] MEDS ORDERED: NEO-SYNEPHRINE 100 MG in NACL 0.9% 90 ML IV SCH (12:45)
--- NOTE | 2019-02-17 13:12 | Consultation ---
History of Present Illness Consult date: 02/17/19 Requesting physician: RASHAD FATIMA Reason for consult: other (Cardiac Arrest) History of present illness: 68 y/o female who has been admitted since 02/09/19 with nausea, vomiting and abdominal pain. Subsequently discovered to have an abnormal CT of the abdomen that is concerning for metastatic cancer. Likely Ovarian. Patient per daughter was awaiting results on the floor but no one had spoke to them. This am she had cardiac arrest, was intubated and brought to the ICU. Since then I and Dr. Reddy spoke with the patient's family member at the bedside and explained the poor prognosis of what is going on. She coded again about 2 hours later in the form of bradycardia and then PEA. The rhthym was sinus nicole. She had ROSC with 3 epi's and 2 bicarbs. Currently her BP is dropping again and the family is attempting to determine if she will be an AND. Past History Past Medical History: diabetes, DVT, heart failure Past Surgical History: Other (Eye surgery) Social history: single. denies: smoking, alcohol abuse, prescription drug abuse, IV drug use Family history: hypertension Medications and Allergies Allergies Allergy/AdvReac Type Severity Reaction Status Date / Time No Known Allergies Allergy Verified 01/15/19 14:39 Home Medications Medication Instructions Recorded Confirmed Last Taken Type metFORMIN [Glucophage] 500 mg PO BID 01/10/19 02/09/19 Unknown History Apixaban [Eliquis] 2 tab PO BID #26 tablet 01/12/19 02/09/19 Unknown Rx Furosemide [Lasix] 20 mg PO BID 02/09/19 02/09/19 Unknown History Active Meds: Active Medications Acetaminophen (Tylenol) 650 mg PO Q4H PRN PRN Reason: Pain MILD(1-3)/Fever >100.5/KEMP Last Admin: 02/10/19 11:10 Dose: 650 mg Documented by: Dextrose (D50w (25gm) Syringe) 50 ml IV PRN PRN PRN Reason: Hypoglycemia Pantoprazole Sodium 80 mg/ (Sodium Chloride) 100 mls @ 10 mls/hr IV DIRECT DREW Last Admin: 02/17/19 08:26 Dose: 8 mg/hr, 10 mls/hr Documented by: Norepinephrine (Levophed Drip 4 Mg/Ns 250 Ml) 4 mg in 250 mls @ 7.5 mls/hr IV TITR DREW; Protocol Last Titration: 02/17/19 11:34 Dose: 30 mcg/min, 112.5 mls/hr Documented by: Cefepime HCl (Maxipime/Ns 2 Gm/100 Ml) 2 gm in 100 mls @ 200 mls/hr IV Q12HR DREW; Protocol Last Admin: 02/17/19 12:00 Dose: 200 mls/hr Documented by: Metronidazole (Flagyl 500 Mg/100 Ml) 500 mg in 100 mls @ 100 mls/hr IV Q8HR DREW; Protocol Vasopressin 20 unit/ Sodium (Chloride) 101 mls @ 9.09 mls/hr IV TITR DREW; Protocol Last Admin: 02/17/19 12:25 Dose: 0.03 units/min, 9.09 mls/hr Documented by: Phenylephrine HCl 100 mg/ (Sodium Chloride) 100 mls @ 3 mls/hr IV TITR DREW; Protocol Insulin Human Lispro (Humalog) 0 unit SUB-Q Q6HR DREW; Protocol Ondansetron HCl (Zofran) 4 mg IV Q8H PRN PRN Reason: Nausea And Vomiting Sodium Chloride (Sodium Chloride Flush Syringe 10 Ml) 10 ml IV BID DREW Last Admin: 02/17/19 10:00 Dose: 10 ml Documented by: Sodium Chloride (Sodium Chloride Flush Syringe 10 Ml) 10 ml IV PRN PRN PRN Reason: LINE FLUSH Last Admin: 02/17/19 05:48 Dose: 10 ml Documented by: Review of Systems ROS unobtainable: due to endotracheal tube, due to mental status Physical Examination Vital signs: Vital Signs Pulse Resp BP Pulse Ox 116 H 18 107/71 97 02/09/19 17:30 02/09/19 17:30 02/09/19 17:30 02/09/19 17:30 General appearance: comatose (orally intubated on vent, not sedated.) Eyes: icteric ENT: other (orally intubated) Neck: supple Effort: very labored Ascultation: Bilateral: diminished breath sounds Cardiovascular: other (bradycardia, but appears sinus) Gastrointestinal: other (distended, tense ascities) unable to assess Results - Laboratory Findings CBC and BMP: 02/17/19 06:58 02/17/19 06:58 ABG POC ABG pH 7.263 (7.35-7.45) L 02/17/19 10:17 POC ABG pCO2 44.7 (35-45) 02/17/19 10:17 POC ABG pO2 56 (80-105) L 02/17/19 10:17 POC ABG HCO3 20.2 (22-26 mml/L) 02/17/19 10:17 POC ABG Total CO2 22 (23-27mmol/L) 02/17/19 10:17 POC ABG O2 Sat 84 02/17/19 10:17 PT/INR, D-dimer PT 22.6 Sec. (12.2-14.9) H 02/09/19 18:06 INR 2.04 (0.87-1.13) H 02/09/19 18:06 Abnormal lab findings: Abnormal Labs 02/09/19 02/09/19 02/09/19 18:06 18:06 18:06 WBC 20.4 H RBC 5.39 H MCV 67 L MCH 22 L RDW 17.6 H Plt Count 481 H Seg Neuts % (Manual) 94.0 H Lymphocytes % (Manual) 5.0 L Seg Neutrophils # Man 19.2 H Lymphocytes # (Manual) 1.0 L PT 22.6 H INR 2.04 H APTT POC ABG pH POC ABG pO2 Sodium 123 L Potassium Chloride 87.4 L Carbon Dioxide BUN 20 H Creatinine 0.3 L Glucose 179 H POC Glucose Lactic Acid Calcium Phosphorus Total Creatine Kinase CK-MB (CK-2) CK-MB (CK-2) Rel Index Troponin T NT-Pro-B Natriuret Pep 7069 H Albumin 2.9 L LDL Cholesterol Direct 02/09/19 02/09/19 02/09/19 23:15 23:15 23:47 WBC RBC MCV MCH RDW Plt Count Seg Neuts % (Manual) Lymphocytes % (Manual) Seg Neutrophils # Man Lymphocytes # (Manual) PT INR APTT 40.9 H POC ABG pH POC ABG pO2 Sodium Potassium Chloride Carbon Dioxide BUN Creatinine Glucose POC Glucose 187 H Lactic Acid 2.10 H* Calcium Phosphorus Total Creatine Kinase CK-MB (CK-2) CK-MB (CK-2) Rel Index Troponin T NT-Pro-B Natriuret Pep Albumin LDL Cholesterol Direct 08/07/19 08/07/19 08/07/19 07:45 11:56 16:04 WBC RBC MCV MCH RDW Plt Count Seg Neuts % (Manual) Lymphocytes % (Manual) Seg Neutrophils # Man Lymphocytes # (Manual) PT INR APTT POC ABG pH POC ABG pO2 Sodium Potassium Chloride Carbon Dioxide BUN Creatinine Glucose POC Glucose 154 H 171 H 173 H Lactic Acid Calcium Phosphorus Total Creatine Kinase CK-MB (CK-2) CK-MB (CK-2) Rel Index Troponin T NT-Pro-B Natriuret Pep Albumin LDL Cholesterol Direct 02/10/19 02/11/19 02/11/19 21:26 08:26 12:11 WBC RBC MCV MCH RDW Plt Count Seg Neuts % (Manual) Lymphocytes % (Manual) Seg Neutrophils # Man Lymphocytes # (Manual) PT INR APTT POC ABG pH POC ABG pO2 Sodium Potassium Chloride Carbon Dioxide BUN Creatinine Glucose POC Glucose 130 H 153 H 243 H Lactic Acid Calcium Phosphorus Total Creatine Kinase CK-MB (CK-2) CK-MB (CK-2) Rel Index Troponin T NT-Pro-B Natriuret Pep Albumin LDL Cholesterol Direct 02/11/19 02/11/19 02/12/19 16:40 21:15 04:50 WBC 22.3 H RBC 5.35 H MCV 66 L MCH 22 L RDW 18.0 H Plt Count 467 H Seg Neuts % (Manual) 98.0 H Lymphocytes % (Manual) 2.0 L Seg Neutrophils # Man 21.9 H Lymphocytes # (Manual) 0.4 L PT INR APTT POC ABG pH POC ABG pO2 Sodium Potassium Chloride Carbon Dioxide BUN Creatinine Glucose POC Glucose 185 H 112 H Lactic Acid Calcium Phosphorus Total Creatine Kinase CK-MB (CK-2) CK-MB (CK-2) Rel Index Troponin T NT-Pro-B Natriuret Pep Albumin LDL Cholesterol Direct 02/12/19 02/12/19 02/12/19 04:50 07:41 12:26 WBC RBC MCV MCH RDW Plt Count Seg Neuts % (Manual) Lymphocytes % (Manual) Seg Neutrophils # Man Lymphocytes # (Manual) PT INR APTT POC ABG pH POC ABG pO2 Sodium 125 L Potassium Chloride 87.8 L Carbon Dioxide BUN 19 H Creatinine 0.3 L Glucose 134 H POC Glucose 144 H 180 H Lactic Acid Calcium 8.2 L Phosphorus Total Creatine Kinase CK-MB (CK-2) CK-MB (CK-2) Rel Index Troponin T NT-Pro-B Natriuret Pep Albumin LDL Cholesterol Direct 02/12/19 02/12/19 02/13/19 16:47 20:45 07:30 WBC RBC MCV MCH RDW Plt Count Seg Neuts % (Manual) Lymphocytes % (Manual) Seg Neutrophils # Man Lymphocytes # (Manual) PT INR APTT POC ABG pH POC ABG pO2 Sodium Potassium Chloride Carbon Dioxide BUN Creatinine Glucose POC Glucose 175 H 197 H 148 H Lactic Acid Calcium Phosphorus Total Creatine Kinase CK-MB (CK-2) CK-MB (CK-2) Rel Index Troponin T NT-Pro-B Natriuret Pep Albumin LDL Cholesterol Direct 02/13/19 02/13/19 02/13/19 10:52 10:52 12:50 WBC 29.4 H RBC 5.79 H MCV 67 L MCH 22 L RDW 17.8 H Plt Count 537 H Seg Neuts % (Manual) 97.0 H Lymphocytes % (Manual) 2.0 L Seg Neutrophils # Man 28.5 H Lymphocytes # (Manual) 0.6 L PT INR APTT POC ABG pH POC ABG pO2 Sodium Potassium Chloride Carbon Dioxide BUN Creatinine Glucose POC Glucose 315 H Lactic Acid 3.10 H* Calcium Phosphorus Total Creatine Kinase CK-MB (CK-2) CK-MB (CK-2) Rel Index Troponin T NT-Pro-B Natriuret Pep Albumin LDL Cholesterol Direct 02/13/19 02/13/19 02/13/19 13:37 16:45 18:03 WBC RBC MCV MCH RDW Plt Count Seg Neuts % (Manual) Lymphocytes % (Manual) Seg Neutrophils # Man Lymphocytes # (Manual) PT INR APTT POC ABG pH POC ABG pO2 Sodium Potassium Chloride Carbon Dioxide BUN Creatinine Glucose POC Glucose 208 H Lactic Acid 3.60 H* 3.50 H* Calcium Phosphorus Total Creatine Kinase CK-MB (CK-2) CK-MB (CK-2) Rel Index Troponin T NT-Pro-B Natriuret Pep Albumin LDL Cholesterol Direct 02/13/19 02/13/19 02/14/19 20:28 20:34 05:12 WBC RBC MCV MCH RDW Plt Count Seg Neuts % (Manual) Lymphocytes % (Manual) Seg Neutrophils # Man Lymphocytes # (Manual) PT INR APTT POC ABG pH POC ABG pO2 Sodium Potassium Chloride Carbon Dioxide BUN Creatinine Glucose POC Glucose 128 H Lactic Acid 3.70 H* 2.60 H* Calcium Phosphorus Total Creatine Kinase CK-MB (CK-2) CK-MB (CK-2) Rel Index Troponin T NT-Pro-B Natriuret Pep Albumin LDL Cholesterol Direct 02/14/19 02/14/19 02/14/19 05:12 06:36 07:39 WBC 30.1 H RBC 5.80 H MCV 67 L MCH 22 L RDW 17.7 H Plt Count 481 H Seg Neuts % (Manual) 96.0 H Lymphocytes % (Manual) 3.0 L Seg Neutrophils # Man 28.9 H Lymphocytes # (Manual) 0.9 L PT INR APTT POC ABG pH POC ABG pO2 Sodium Potassium Chloride Carbon Dioxide BUN Creatinine Glucose POC Glucose 137 H Lactic Acid 3.70 H* Calcium Phosphorus Total Creatine Kinase CK-MB (CK-2) CK-MB (CK-2) Rel Index Troponin T NT-Pro-B Natriuret Pep Albumin LDL Cholesterol Direct 02/14/19 02/14/19 02/14/19 08:12 09:52 12:21 WBC RBC MCV MCH RDW Plt Count Seg Neuts % (Manual) Lymphocytes % (Manual) Seg Neutrophils # Man Lymphocytes # (Manual) PT INR APTT POC ABG pH POC ABG pO2 Sodium Potassium Chloride Carbon Dioxide BUN Creatinine Glucose POC Glucose 225 H Lactic Acid 3.00 H* 3.00 H* Calcium Phosphorus Total Creatine Kinase CK-MB (CK-2) CK-MB (CK-2) Rel Index Troponin T NT-Pro-B Natriuret Pep Albumin LDL Cholesterol Direct 02/14/19 02/14/19 02/15/19 16:00 20:59 04:48 WBC 29.0 H RBC 5.56 H MCV 68 L MCH 22 L RDW 17.8 H Plt Count Seg Neuts % (Manual) 95.0 H Lymphocytes % (Manual) 0 L Seg Neutrophils # Man 27.6 H Lymphocytes # (Manual) 0.0 L PT INR APTT POC ABG pH POC ABG pO2 Sodium Potassium Chloride Carbon Dioxide BUN Creatinine Glucose POC Glucose 312 H 215 H Lactic Acid Calcium Phosphorus Total Creatine Kinase CK-MB (CK-2) CK-MB (CK-2) Rel Index Troponin T NT-Pro-B Natriuret Pep Albumin LDL Cholesterol Direct 02/15/19 02/15/19 02/15/19 04:48 07:34 11:35 WBC RBC MCV MCH RDW Plt Count Seg Neuts % (Manual) Lymphocytes % (Manual) Seg Neutrophils # Man Lymphocytes # (Manual) PT INR APTT POC ABG pH POC ABG pO2 Sodium 124 L Potassium 5.2 H D Chloride 84.8 L Carbon Dioxide 19 L BUN 26 H Creatinine 0.4 L Glucose 180 H POC Glucose 249 H 187 H Lactic Acid Calcium Phosphorus Total Creatine Kinase CK-MB (CK-2) CK-MB (CK-2) Rel Index Troponin T NT-Pro-B Natriuret Pep Albumin LDL Cholesterol Direct 02/15/19 02/16/19 02/16/19 15:29 07:19 07:19 WBC 27.5 H RBC 5.34 H MCV 67 L MCH 22 L RDW 17.5 H Plt Count Seg Neuts % (Manual) 96.0 H Lymphocytes % (Manual) 4.0 L Seg Neutrophils # Man 26.4 H Lymphocytes # (Manual) 1.1 L PT INR APTT POC ABG pH POC ABG pO2 Sodium 123 L Potassium Chloride 83.0 L Carbon Dioxide 21 L BUN 31 H Creatinine 0.4 L Glucose 131 H POC Glucose 150 H Lactic Acid Calcium Phosphorus Total Creatine Kinase CK-MB (CK-2) CK-MB (CK-2) Rel Index Troponin T NT-Pro-B Natriuret Pep Albumin LDL Cholesterol Direct 02/16/19 02/16/19 02/16/19 07:59 13:00 17:29 WBC RBC MCV MCH RDW Plt Count Seg Neuts % (Manual) Lymphocytes % (Manual) Seg Neutrophils # Man Lymphocytes # (Manual) PT INR APTT POC ABG pH POC ABG pO2 Sodium Potassium Chloride Carbon Dioxide BUN Creatinine Glucose POC Glucose 129 H 143 H 228 H Lactic Acid Calcium Phosphorus Total Creatine Kinase CK-MB (CK-2) CK-MB (CK-2) Rel Index Troponin T NT-Pro-B Natriuret Pep Albumin LDL Cholesterol Direct 02/16/19 02/17/19 02/17/19 21:55 06:08 06:08 WBC 30.3 H RBC MCV 69 L MCH 22 L RDW 17.6 H Plt Count 448 H Seg Neuts % (Manual) Lymphocytes % (Manual) Seg Neutrophils # Man Lymphocytes # (Manual) PT INR APTT POC ABG pH POC ABG pO2 Sodium 124 L Potassium Chloride 85.5 L Carbon Dioxide 18 L BUN 50 H Creatinine Glucose 193 H POC Glucose 193 H Lactic Acid Calcium Phosphorus Total Creatine Kinase CK-MB (CK-2) CK-MB (CK-2) Rel Index Troponin T NT-Pro-B Natriuret Pep Albumin 3.2 L LDL Cholesterol Direct 02/17/19 02/17/19 02/17/19 06:57 06:58 06:58 WBC 21.1 H RBC MCV 67 L MCH 21 L RDW 17.7 H Plt Count Seg Neuts % (Manual) 95.0 H Lymphocytes % (Manual) 4.0 L Seg Neutrophils # Man 20.0 H Lymphocytes # (Manual) 0.8 L PT INR APTT POC ABG pH POC ABG pO2 Sodium 126 L Potassium Chloride 86.2 L Carbon Dioxide 18 L BUN 50 H Creatinine Glucose 222 H POC Glucose 273 H Lactic Acid Calcium Phosphorus 6.30 H Total Creatine Kinase 137 H CK-MB (CK-2) 7.3 H CK-MB (CK-2) Rel Index 5.3 H Troponin T 0.113 H* NT-Pro-B Natriuret Pep Albumin LDL Cholesterol Direct 02/17/19 02/17/19 02/17/19 10:17 11:35 12:11 WBC RBC MCV MCH RDW Plt Count Seg Neuts % (Manual) Lymphocytes % (Manual) Seg Neutrophils # Man Lymphocytes # (Manual) PT INR APTT POC ABG pH 7.263 L POC ABG pO2 56 L Sodium Potassium Chloride Carbon Dioxide BUN Creatinine Glucose POC Glucose 172 H Lactic Acid Calcium Phosphorus Total Creatine Kinase CK-MB (CK-2) CK-MB (CK-2) Rel Index Troponin T 0.200 H* D NT-Pro-B Natriuret Pep Albumin LDL Cholesterol Direct 28 L - Diagnostic Findings Chest x-ray: image reviewed Additional studies: Reviewed report and abdominal CT images Assessment and Plan 68 y/o female s/p cardiac arrest, acute respiratory failure secondary to cardiac arrest and all most likely secondary to underlying unbiopsy malignancy seen on CT of abd/pelvis with prior history of DVT earlier in January on anticoagulation. Long discussion with daughter at bedside this am. Very distrought about the results of the scan and current clinical situation. I explained to her that she is comatose without any sedation or help from our end. the likelyhood of her waking up and being functional are slim to none. She has significant cardiovascular collapse and there is possible concern for GI bleed given the dark blood that is coming from the NG/OG tube. The patient has an extremely po or prognosis. Hopeful that family will make patient and AND and consider withdrawing care. CCT 91 minutes.
[2019-02-17] MEDS ORDERED: FLAGYL 500 MG/100 ML 500 MG/100 ML BAG IV SCH (14:00)
--- NOTE | 2019-02-17 15:03 | Death Summary ---
Summary - Providers Consults: 02/12/19 09:06 Consult to Physician [CONS] Routine Comment: Consulting Provider: ARLET NUNEZ Physician Instructions: Reason For Exam: pna, sepsis, leukocytosis 02/15/19 10:18 Consult to Physician [CONS] Routine Comment: Consulting Provider: JASMYNE ARCHER Physician Instructions: Reason For Exam: ovarian neoplasm 02/16/19 07:50 Consult to Physician [CONS] Routine Comment: Consulting Provider: GAUTAM HERNANDEZ Physician Instructions: Reason For Exam: hyponatremia 02/16/19 09:40 Consult to Physician [CONS] Routine Comment: Consulting Provider: SOLIS MENDOSA Physician Instructions: Reason For Exam: ovarian cancer 02/16/19 11:21 Consult to Physician [CONS] Routine Comment: Consulting Provider: YORDY YODER Physician Instructions: Reason For Exam: Ovarian mass 02/17/19 06:58 Consult to Physician [CONS] Routine Comment: Consulting Provider: MAGGIE ROBERTS Physician Instructions: Reason For Exam: gi bleed 02/17/19 06:59 Consult to PICC Line RN [CONS] Stat Reason For Exam: critical, needs access Type Line:: PICC 02/17/19 07:02 Consult to Physician [CONS] Routine Comment: Consulting Provider: VANE STONE Physician Instructions: Reason For Exam: critically ill 02/17/19 09:07 Consult to Physician [CONS] Routine Comment: Consulting Provider: CARO ALCAZAR Physician Instructions: Reason For Exam: Elevated Troponin, s/p cardiac arrest Attending: BOWEN NUNO - summary Date of admission: 02/09/19 20:06 Date of : 02/17/19
--- NOTE | 2019-02-17 15:03 | Death Note ---
Note Date of : 02/17/19 Time of : 14:36 Time Pronounced: 14:50
[2019-02-17 15:17] VITALS: BP 73/50
--- NOTE | 2019-02-18 03:59 | Consultation ---
REFERRING PHYSICIAN: Rudy Reddy M.D. REASON FOR CONSULTATION: Possible neoplasm. HISTORY OF PRESENT ILLNESS: I saw the patient, a 68-year-old female, with past history of recent DVT, on anticoagulation, CHF, admitted to the hospital because of generalized weakness, shortness of breath, leg swelling, was admitted for CHF decompensation and left lower lobe pneumonia. No fever, no chills. During this admission, the patient has been seen by Cardiology team. Severely dilated right ventricle chamber, pulmonary hypertension was noted. The patient was seen by ID team. As CT scan suggested ascites with carcinomatosis, I have been asked to evaluate the patient. There is a mention of ovarian neoplasm. The patient had undergone CT scan during this admission of the chest and abdomen. 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 CT chest, no CT evidence of PE. PAST MEDICAL HISTORY: As above, mention of DVT/PE, heart failure, diabetes, right common femoral DVT was acute, left was chronic with bilateral PE, family history of DVT. SOCIAL HISTORY: Lives with family members. No history of tobacco or alcohol usage. FAMILY HISTORY: Hypertension. ALLERGIES: None. HOME MEDICATIONS: Included Eliquis, Lasix, Glucophage. PHYSICAL EXAMINATION: VITAL SIGNS: Temperature 97, pulse 114, respirations 20, BP 93/63. HEENT: Pallor present, no icterus. NECK: No neck lymph nodes. HEART: S1, S2. LUNGS: Decreased air entry. ABDOMEN: Distended. EXTREMITIES: Leg swelling present. NEUROLOGIC: Alert, awake. LABORATORY DATA: White cell 27, hemoglobin 11, MCV 67, platelet 433, creatinine 0.4, calcium 8. Serum iron in January was 19. B12 was 1200, folate 12, ferritin 86, bilirubin was not elevated. RADIOLOGY: As above. ASSESSMENT: 1. Ovarian mass. 2. History of deep venous thrombosis and pulmonary embolism. 3. ____. 4. 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 The patient was following a wet primer powder blender. There was a plan for biopsy, but this was changed. 5. Diabetes. 6. Hyponatremia. 7. History of congestive heart failure. 8. Pneumonia. 9. Question of lung nodules, possible mets. PLAN: We will do tumor markers and follow the patient. JOB# [id number] EDUARD/OBED
== END 2019-02-17 17:44 | DRG 871 ==
LOC: ED 16:37 → 4A 20:06 → CC1 02-17 06:38
PROVIDERS: ADMIT Internal Medicine; ATTEND Internal Medicine
PROC: 4A033R1 Measurement of Arterial Saturation, Peripheral, Percutaneous Approach (ICD-10-PCS; principal; 2019-02-17)
PROC: 02HV33Z Insertion of Infusion Device into Superior Vena Cava, Percutaneous Approach (ICD-10-PCS; 2019-02-17)
PROC: 5A12012 Performance of Cardiac Output, Single, Manual (ICD-10-PCS; 2019-02-17)
PROC: 5A1935Z Respiratory Ventilation, Less than 24 Consecutive Hours (ICD-10-PCS; 2019-02-17)
PROC: 0BH17EZ Insertion of Endotracheal Airway into Trachea, Via Natural or Artificial Opening (ICD-10-PCS; 2019-02-17)
DX: A41.9 Sepsis, unspecified organism (principal); J18.1 Lobar pneumonia, unspecified organism; J96.01 Acute respiratory failure with hypoxia; I50.23 Acute on chronic systolic (congestive) heart failure; G93.41 Metabolic encephalopathy; E87.1 Hypo-osmolality and hyponatremia; C78.89 Secondary malignant neoplasm of other digestive organs; R18.0 Malignant ascites; C56.2 Malignant neoplasm of left ovary; C56.1 Malignant neoplasm of right ovary; J98.11 Atelectasis; C79.72 Secondary malignant neoplasm of left adrenal gland; R64 Cachexia; K92.0 Hematemesis; E11.9 Type 2 diabetes mellitus without complications; D47.3 Essential (hemorrhagic) thrombocythemia; I27.20 Pulmonary hypertension, unspecified; R91.1 Solitary pulmonary nodule; I48.91 Unspecified atrial fibrillation; I46.9 Cardiac arrest, cause unspecified; Z79.01 Long term (current) use of anticoagulants; Z86.711 Personal history of pulmonary embolism; Z68.24 Body mass index [BMI] 24.0-24.9, adult; Z79.84 Long term (current) use of oral hypoglycemic drugs; Z86.718 Personal history of other venous thrombosis and embolism
CPT/HCPCS: 36415; 36600; 71045; 71046; 71275; 74177; 80048; 80053; 80061; 82140; 82533; 82550; 82553; 82803; 82962; 83735; 83880; 83930; 84100; 84439; 84443; 84484; 85007; 85025; 85027; 85610; 85730; 87040; 87070; 87205; 92950; 93005; 93010; 94003; 94760; 96365; 96375; G0378; C9113; J0171; J0456; J0692; J0696; J1815; J1940; J2370; J7030; J7040; J7050; Q9967